=== PATIENT | female | born 1940 | race Caucasian/White ===

== ENCOUNTER 2019-07-20 09:33 | Outpatient (CLI) | payer MEDICARE, SELFPAY ==
--- NOTE | ~2019-07-20 | MM_ITS ---
EXAMINATION: MM screening raheem BI w dulce HISTORY: Screening mammogram, family history of breast cancer in her sister. TECHNIQUE: Craniocaudal and mediolateral oblique 3-D tomosynthesis images were obtained and synthetic 2-D images were generated. CAD analysis was submitted and interpreted. COMPARISON: 06/15/2018, 06/10/2017, 06/03/2016 BREAST PARENCHYMAL COMPOSITION: There are scattered areas of fibroglandular density. FINDINGS: There is no evidence of suspicious mass, calcification, or architectural distortion to sugg est malignancy in either breast. There has been no suspicious interval change. IMPRESSION: 1. No mammographic evidence of malignancy. 2. Recommend routine screening mammography in one year. BI-RADS Category 1: Negative Reviewed, dictated and finalized at location A. LER HAND
--- NOTE | ~2019-07-20 | DEXA_ITS ---
Bone Density Report Name: Dena Aldana Age: 79 Sex: Female Ethnicity: White Date of : 1940 Indication: postmenopausal; inflammatory bowel disease; hysterectomy; Referring Provider: CLAYTON ELIZONDO Study: Bone densitometry was performed. Exam Date: July 20, 2019 Accession number: [id number] Bone Density: Region BMD T-score Z-score Classification AP Spine (L1, L2, L3) 1.089 0.6 3.1 Normal Femoral Neck (Left) 0.806 -0.4 1.8 Normal Total Hip (Left) 1.026 0.7 2.6 Normal Total Hip Bilateral Avg 0.974 0.2 2.1 Normal Femoral Neck (Right) 0.727 -1.1 1.1 Osteopenia Total Hip (Right) 0.922 -0.2 1.7 Normal World Health Organization criteria for BMD impression classify patients as: Normal (T-score at or above -1.0), Osteopenia (T-score between -1.0 and -2.5), or Osteoporosis (T-score at or below -2.5). 10-year Fracture Risk(1): Major Osteoporotic Fracture 10% Hip Fracture 1.8% Reported Risk Factors: [place] (), Neck BMD=0.727, BMI=34.9 (1) FRAX(R) Version 3.08. Fracture probability calculated for an untreated patient. Fracture probability may be lower if the patient has received treatment. Previous Exams: Region Exam Age BMD T-score BMD Change BMD Change Date g/cm2 vs Baseline vs Previous AP Spine(L1, L2, L3) 07/20/2019 79 1.089 0.6 0.019(1.8%)# -0.044(-3.9%)* 06/03/2016 76 1.133 1.0 0.063(5.9%)# 0.063(5.9%)# 10/10/2007 67 1.070 0.5 Total Hip(Left) 07/20/2019 79 1.026 0.7 0.043(4.4%)# 0.020(2.0%) 06/03/2016 76 1.006 0.5 0.023(2.4%)# 0.023(2.4%)# 10/10/2007 67 0.983 0.3 Total Hip(Right) 07/20/2019 79 0.922 -0.2 0.025(2.8%)# 0.027(3.0%) 06/03/2016 76 0.895 -0.4 -0.002(-0.2%)# -0.002(-0.2%)# 10/10/2007 67 0.897 -0.4 *Denotes significance at 95% confidence level, LSC for AP Spine = 0.022 g/cm2, LSC for Total Hip = 0.027 g/cm2 Clinical Information Provided by Patient: Has used the following medications: Vitamin D Has the following medical conditions: Inflammatory bowel diseases, Hysterectomy Patient maximum height was 65.5 Menopause Age: 42 No regular weight bearing exercise Does not regularly consume dairy products Onset of menses at age 16 Number of children 2 Impression: The patient has low bone mass, based on the Right Femoral Neck T-score. The patient has an estimated ten-year risk of hip fracture of 1.8% and an estimated ten-year risk of
== END 2019-07-20 09:34 | disposition home or self-care (01) ==
PROVIDERS: PCP Internal Medicine; Visit Provider Internal Medicine
DX: Z12.31 Encounter for screening mammogram for malignant neoplasm of breast (principal); Z78.0 Asymptomatic menopausal state
CPT/HCPCS: 77063; 77067; 77080

== ENCOUNTER 2019-08-29 06:58 | Outpatient (CLI) | payer MEDICARE, SELFPAY ==
[2019-08-29 07:20] LABS: Basophils Percent Auto 0.5 % (0.2-1.2); Eosinophils Absolute Auto 0.1 K/mm3 (0-0.3); Eosinophils Percent Auto 1.7 % (0-4.4); Hematocrit 45.7 % (37.0-47.0); Immature Granulocyte Absolute 0.02 K/mm3 (0.00-0.031); Immature Granulocyte Percent A 0.3 % (0-0.5); Lymphocytes Absolute Auto 2.07 K/mm3 (0.9-3.2); Lymphocytes Percent Auto 35.4 % (18.3-44.2); Mean Corpuscular HGB Conc 32.8 g/dl (32-36); Mean Corpuscular Hemoglobin 29.2 pg (26-34); Mean Corpuscular Volume 89.1 fl (80-100); Mean Platelet Volume 10.4 fl (7.4-10.4); Monocytes Absolute Auto 0.6 K/mm3 (0.1-0.6); Monocytes Percent Auto 9.7 % (2.6-8.5); Neutrophils Absolute Auto 3.1 K/mm3 (1.3-6.7); Neutrophils Percent Auto 52.4 % (45.5-73.1); Platelet Count Result 222 k/mm3 (150-375); Red Blood Count 5.13 M/mm3 (4.2-5.4); Red Cell Distribution Width 13.2 % (11.5-14.5); White Blood Count 5.9 K/mm3 (4.5-10.0)
[2019-08-29 07:28] LABS: Hemoglobin A1C 5.9 % (<5.7)
[2019-08-29 07:32] LABS: Alanine Aminotransferase 26 U/L (4-35); Albumin Level 4.4 g/dL (3.5-5.1); Alkaline Phosphatase 54 U/L (38-126); Aspartate Amino Transferase 31 U/L (14-36); Bilirubin,Total 0.6 mg/dL (0.2-1.3); Blood Urea Nitrogen 15 mg/dL (7-17); Calcium 9.4 mg/dL (8.4-10.2); Carbon Dioxide 30 mmol/L (22-30); Chloride 104 mmol/L (98-107); Estimated Glomerular Filt Rate > 60; Glucose 115 mg/dL (65-105); Potassium 4.1 mmol/L (3.4-5.0); Sodium 138 mmol/L (137-145)
[2019-08-29 07:48] LABS: Creatinine Urine 171.7 mg/dL
[2019-08-29 07:53] LABS: MALB Creatinine Ratio 5.6 mg/g (0-30); Microalbumin Urine Random 9.7 mg/L (0-16.7)
[2019-08-29 08:03] LABS: Vitamin D 25 Hydroxy 34.1 ng/mL
== END 2019-08-29 06:59 | disposition home or self-care (01) ==
PROVIDERS: PCP Internal Medicine; Visit Provider Internal Medicine
DX: R73.01 Impaired fasting glucose (principal); I10 Essential (primary) hypertension; E55.9 Vitamin D deficiency, unspecified
CPT/HCPCS: 36415; 80053; 82043; 82306; 83036; 85025

== ENCOUNTER 2020-02-05 07:16 | Outpatient (CLI) | payer MEDICARE, SELFPAY ==
[2020-02-05 08:07] LABS: Alanine Aminotransferase 27 U/L (4-35); Albumin Level 4.2 g/dL (3.5-5.1); Alkaline Phosphatase 51 U/L (38-126); Anion Gap 6 mmol/L (8-16); Aspartate Amino Transferase 31 U/L (14-36); Bilirubin,Total 0.6 mg/dL (0.2-1.3); Blood Urea Nitrogen 15 mg/dL (7-17); Carbon Dioxide 28 mmol/L (22-30); Chloride 105 mmol/L (98-107); Cholesterol 154 mg/dL (0-200); Estimated Glomerular Filt Rate > 60; Glucose 110 mg/dL (65-105); HDL Direct 54 mg/dL; Sodium 139 mmol/L (137-145); Triglycerides 166 mg/dL (<150)
[2020-02-05 08:18] LABS: LDL Cholesterol Direct 61 mg/dL
[2020-02-05 08:46] LABS: Hemoglobin A1C 5.8 % (<5.7)
[2020-02-05 09:10] LABS: Creatinine Urine 118.3 mg/dL
[2020-02-05 09:16] LABS: MALB Creatinine Ratio < 5.1 mg/g (0-30); Microalbumin Urine Random < 6.0 mg/L (0-16.7)
== END 2020-02-05 07:17 | disposition home or self-care (01) ==
PROVIDERS: PCP Internal Medicine; Visit Provider Internal Medicine
DX: E11.9 Type 2 diabetes mellitus without complications (principal); I10 Essential (primary) hypertension
CPT/HCPCS: 36415; 80053; 80061; 82043; 83036

== ENCOUNTER 2020-04-30 12:23 | Outpatient (CLI) | payer MEDICARE, SELFPAY ==
[2020-04-30 13:16] LABS: Hemoglobin A1C 5.6 % (<5.7)
[2020-04-30 13:43] LABS: Creatinine Urine 124.5 mg/dL
[2020-04-30 13:48] LABS: MALB Creatinine Ratio 5.6 mg/g (0-30)
== END 2020-04-30 12:24 | disposition home or self-care (01) ==
LOC: ANHLAB 12:25
PROVIDERS: PCP Internal Medicine; Visit Provider Internal Medicine
DX: E11.9 Type 2 diabetes mellitus without complications (principal)
CPT/HCPCS: 36415; 82043; 83036

== ENCOUNTER 2020-07-25 09:57 | Outpatient (CLI) | payer MEDICARE, SELFPAY ==
--- NOTE | ~2020-07-25 | MM_ITS ---
EXAMINATION: MM screening raheem BI w dulce HISTORY: Screening mammogram TECHNIQUE: Craniocaudal and mediolateral oblique 3-D tomosynthesis images were obtained and synthetic 2-D images were generated. CAD analysis was submitted and interpreted. COMPARISON: , 1525 2018, 06/02/2017 bilateral digital screening mammogram examinations BREAST PARENCHYMAL COMPOSITION: There are scattered areas of fibroglandular density. FINDINGS: 6 mm and smaller nodular densities are suggested in the left breast (MLO Tomosynthesis imag e ). Diagnostic left mammogram and left breast ultrasound examination are recommended. Otherwise there is no evidence of suspicious mass, calcification, or architectural distortion to sugg est malignancy in either breast. There has been no other suspicious interval change. IMPRESSION: 1. Left breast masses are suggested 2. Diagnostic left mammogram and left breast ultrasound examination are recommended. BI-RADS Category 0: Incomplete: Needs additional imaging evaluation. Reviewed, dictated and finalized at location A. T IMPRESSION: 1. Left breast masses are suggested 2. Diagnostic left mammogram and left breast ultrasound examination are recomme nded. BI-RADS Category 0: Incomplete: Needs additional imaging evaluation.
== END 2020-07-25 09:58 | disposition home or self-care (01) ==
LOC: ANHIMG 10:00
PROVIDERS: PCP Internal Medicine; Visit Provider Internal Medicine
DX: Z12.31 Encounter for screening mammogram for malignant neoplasm of breast (principal); R92.8 Other abnormal and inconclusive findings on diagnostic imaging of breast
CPT/HCPCS: 77063; 77067

== ENCOUNTER 2020-07-31 14:00 | Outpatient (CLI) | payer MEDICARE, SELFPAY ==
[2020-07-31 14:38] LABS: Hemoglobin A1C 5.6 % (<5.7)
[2020-07-31 14:39] LABS: Alanine Aminotransferase 29 U/L (4-35); Albumin Level 4.3 g/dL (3.5-5.1); Alkaline Phosphatase 53 U/L (38-126); Anion Gap 5 mmol/L (8-16); Aspartate Amino Transferase 36 U/L (14-36); Bilirubin,Total 0.5 mg/dL (0.2-1.3); Blood Urea Nitrogen 17 mg/dL (7-17); Calcium 9.5 mg/dL (8.4-10.2); Carbon Dioxide 31 mmol/L (22-30); Chloride 104 mmol/L (98-107); Estimated Glomerular Filt Rate > 60; Glucose 106 mg/dL (65-105); Potassium 4.3 mmol/L (3.4-5.0); Sodium 140 mmol/L (137-145)
[2020-07-31 14:57] LABS: Creatinine Urine 207.6 mg/dL
[2020-07-31 14:59] LABS: Microalbumin Urine Random 10.3 mg/L (0-16.7)
== END 2020-07-31 14:01 | disposition home or self-care (01) ==
PROVIDERS: PCP Internal Medicine; Visit Provider Internal Medicine
DX: E11.9 Type 2 diabetes mellitus without complications (principal); I10 Essential (primary) hypertension
CPT/HCPCS: 36415; 80053; 82043; 83036; 84443

== ENCOUNTER 2020-08-13 12:12 | Outpatient (CLI) | payer MEDICARE, SELFPAY ==
[2020-08-13 12:47] LABS: Add Urine Microscopic? YES; Appearance Urine Clear (Clear); Bilirubin Urine Negative (Negative); Blood Urine 1+ (Negative); Color Urine Straw (Yellow); Glucose Urine UA Negative (Negative); Ketones Urine Negative (Negative); Leukocyte Esterase Ur 2+ LEU/UL (Negative); Nitrate Urine Negative (Negative); Protein Urine Negative (Negative); RBC Urine 0-2 /hpf (0-2); Specific Grav Ur 1.008 (1.001-1.035); Urobilinogen Urine Negative mg/dL (<2.0); WBC Urine 21-30 /hpf
== END 2020-08-13 12:13 | disposition home or self-care (01) ==
PROVIDERS: PCP Internal Medicine; Visit Provider Internal Medicine
DX: N39.0 Urinary tract infection, site not specified (principal)
CPT/HCPCS: 81001; 87077; 87086; 87088; 87186

== ENCOUNTER 2020-08-20 12:20 | Outpatient (CLI) | payer MEDICARE, SELFPAY ==
--- NOTE | ~2020-08-20 | MMUS_ITS ---
EXAMINATION: MM diagnostic mammo unilat LT, US breast LT complete HISTORY: 6 mm and smaller nodular densities suggested in the left breast on screening mammogram of [facility] 2020 TECHNIQUE: Additional 3-D tomosynthesis images of the left breast were performed and synthetic 2-D im ages were generated. CAD analysis was submitted and interpreted. High resolution complete left breast ultrasound was performed. COMPARISON: July 25, 2020 bilateral digital screening mammogram FINDINGS: MAMMOGRAPHIC FINDINGS: Approximately 6-7 mm circumscribed mass is suggested posteriorly in the mid left breast (MLO spot Casa osynthesis image 42/85; MLO Tomosynthesis image 39/84). ULTRASOUND: Left breast 4:00: There is a small cluster of cysts measuring up to approximately 6 mm overall dimens ion. No suspicious mass or shadowing of the left breast is detected otherwise. IMPRESSION: 1. No mammographic evidence of malignancy 2. Routine annual mammographic screening is recommended. BI-RADS Category 2: Benign finding(s). Reviewed, dictated and finalized at location A. L GLUE DRIER IMPRESSION: 1. No mammographic evidence of malignancy 2. Routine annual mammographic screening is recommended. BI-RADS Category 2: Benign finding(s).
== END 2020-08-20 12:21 | disposition home or self-care (01) ==
PROVIDERS: PCP Internal Medicine; Visit Provider Internal Medicine
DX: R92.8 Other abnormal and inconclusive findings on diagnostic imaging of breast (principal)
CPT/HCPCS: 76641; 77065

== ENCOUNTER 2021-01-23 07:26 | Outpatient (CLI) | payer MEDICARE, SELFPAY ==
[2021-01-23 08:40] LABS: Basophils Percent Auto 0.5 % (0.2-1.2); Eosinophils Absolute Auto 0.1 K/mm3 (0-0.3); Eosinophils Percent Auto 1.6 % (0-4.4); Hematocrit 44.4 % (37.0-47.0); Hemoglobin 14.7 g/dL (12.0-15.0); Immature Granulocyte Absolute 0.03 K/mm3 (0.00-0.031); Immature Granulocyte Percent A 0.5 % (0-0.5); Lymphocytes Absolute Auto 1.96 K/mm3 (0.9-3.2); Lymphocytes Percent Auto 34.4 % (18.3-44.2); Mean Corpuscular HGB Conc 33.1 g/dl (32-36); Mean Corpuscular Hemoglobin 29.3 pg (26-34); Mean Corpuscular Volume 88.4 fl (80-100); Mean Platelet Volume 10.5 fl (7.4-10.4); Monocytes Absolute Auto 0.5 K/mm3 (0.1-0.6); Monocytes Percent Auto 8.3 % (2.6-8.5); Neutrophils Absolute Auto 3.1 K/mm3 (1.3-6.7); Neutrophils Percent Auto 54.7 % (45.5-73.1); Platelet Count Result 209 k/mm3 (150-375); Red Blood Count 5.02 M/mm3 (4.2-5.4); Red Cell Distribution Width 13.2 % (11.5-14.5); White Blood Count 5.7 K/mm3 (4.5-10.0)
[2021-01-23 08:41] LABS: Alanine Aminotransferase 26 U/L (4-35); Albumin Level 4.3 g/dL (3.5-5.1); Alkaline Phosphatase 59 U/L (38-126); Anion Gap 8 mmol/L (8-16); Aspartate Amino Transferase 33 U/L (14-36); Bilirubin,Total 0.9 mg/dL (0.2-1.3); Blood Urea Nitrogen 12 mg/dL (7-17); Calcium 9.3 mg/dL (8.4-10.2); Carbon Dioxide 28 mmol/L (22-30); Chloride 100 mmol/L (98-107); Cholesterol 164 mg/dL (0-200); Estimated Glomerular Filt Rate > 60; Glucose 114 mg/dL (65-110); HDL Direct 55 mg/dL; Potassium 3.7 mmol/L (3.4-5.0); Sodium 136 mmol/L (137-145); Triglycerides 226 mg/dL (<150)
[2021-01-23 08:51] LABS: LDL Cholesterol Direct 54 mg/dL
[2021-01-23 09:17] LABS: Vitamin D 25 Hydroxy 45.1 ng/mL
== END 2021-01-23 07:27 | disposition home or self-care (01) ==
LOC: ANHLAB 07:30
PROVIDERS: PCP Internal Medicine; Visit Provider Internal Medicine
DX: E55.9 Vitamin D deficiency, unspecified (principal); I48.92 Unspecified atrial flutter; I10 Essential (primary) hypertension; E78.2 Mixed hyperlipidemia
CPT/HCPCS: 36415; 80053; 80061; 82306; 85025

== ENCOUNTER 2021-02-27 11:02 | Outpatient (CLI) | payer MEDICARE, SELFPAY | END 2021-02-27 11:03 | disposition home or self-care (01) | LOC: ANHAUDIO 11:03 | PROVIDERS: PCP Internal Medicine; Visit Provider Internal Medicine | DX: H91.93 Unspecified hearing loss, bilateral (principal) | CPT/HCPCS: 99199 ==

== ENCOUNTER 2021-03-21 09:52 | Outpatient (CLI) | payer MEDICARE, SELFPAY | END 2021-03-21 09:53 | disposition home or self-care (01) | LOC: ANHAUDIO 09:53 | PROVIDERS: PCP Internal Medicine; Visit Provider Internal Medicine | DX: H90.3 Sensorineural hearing loss, bilateral (principal) | CPT/HCPCS: 92557; 92567 ==

== ENCOUNTER 2021-05-05 07:18 | Outpatient (CLI) | payer MEDICARE, SELFPAY ==
[2021-05-05 09:11] LABS: Cholesterol 149 mg/dL (0-200); HDL Direct 61 mg/dL; Triglycerides 186 mg/dL (<150)
[2021-05-05 09:22] LABS: LDL Cholesterol Direct 52 mg/dL
[2021-05-05 09:23] LABS: Creatinine Urine 208.9 mg/dL
[2021-05-05 09:28] LABS: MALB Creatinine Ratio 19.8 mg/g (0-30); Microalbumin Urine Random 41.4 mg/L (0-16.7)
[2021-05-05 10:04] LABS: Hemoglobin A1C 5.7 % (<5.7)
== END 2021-05-05 07:19 | disposition home or self-care (01) ==
PROVIDERS: PCP Internal Medicine; Visit Provider Internal Medicine
DX: E11.9 Type 2 diabetes mellitus without complications (principal); E78.2 Mixed hyperlipidemia
CPT/HCPCS: 36415; 80061; 82043; 83036

== ENCOUNTER 2021-08-20 09:04 | Outpatient (CLI) | payer MEDICARE, SELFPAY ==
[2021-08-20 09:44] LABS: Alanine Aminotransferase 23 U/L (4-35); Albumin Level 4.3 g/dL (3.5-5.1); Alkaline Phosphatase 53 U/L (38-126); Anion Gap 6 mmol/L (8-16); Aspartate Amino Transferase 35 U/L (14-36); Bilirubin,Total 0.8 mg/dL (0.2-1.3); Blood Urea Nitrogen 11 mg/dL (7-17); Carbon Dioxide 29 mmol/L (22-30); Chloride 104 mmol/L (98-107); Estimated Glomerular Filt Rate > 60; Glucose 123 mg/dL (65-110); Potassium 4.1 mmol/L (3.4-5.0); Sodium 139 mmol/L (137-145)
[2021-08-20 09:57] LABS: Hemoglobin A1C 5.6 % (<5.7)
[2021-08-20 10:40] LABS: Microalbumin Urine Random < 6.0 mg/L (0-16.7)
== END 2021-08-20 09:05 | disposition home or self-care (01) ==
LOC: ANHLAB 09:06
PROVIDERS: PCP Internal Medicine; Visit Provider Internal Medicine
DX: E11.9 Type 2 diabetes mellitus without complications (principal); I10 Essential (primary) hypertension
CPT/HCPCS: 36415; 80053; 82043; 83036; 84443

== ENCOUNTER 2021-09-02 08:59 | Outpatient (CLI) | payer MEDICARE, SELFPAY ==
--- NOTE | ~2021-09-02 | MM_ITS ---
EXAMINATION: MM screening [facility] BI w dulce HISTORY: Screening mammogram TECHNIQUE: Craniocaudal and mediolateral oblique 3-D tomosynthesis images were obtained and synthetic 2-D images were generated. CAD analysis was submitted and interpreted. COMPARISON: No prior mammogram is available for comparison at this institution. BREAST PARENCHYMAL COMPOSITION: There are scattered areas of fibroglandular density. FINDINGS: Right breast: There is no evidence of suspicious mass, calcification, or architectural distortion to suggest malignancy in the right breast. There has been no suspicious interval change. Left breast: There are 3 circumscribed masses measuring up to approximately 4.5 mm in the mid to lowe r outer left breast (MLO Tomosynthesis image 28/84). Diagnostic left mammogram and left breast ultras ound examination are recommended. IMPRESSION: 1. Several small left breast masses 2. Diagnostic left mammogram and left breast ultrasound examination are recommended BI-RADS Category 0: Incomplete: Needs additional imaging evaluation. Reviewed, dictated and finalized at location A. IMPRESSION: 1. Several small left breast masses 2. Diagnostic left mammogram and left breast ultrasound examination are recomme nded BI-RADS Category 0: Incomplete: Needs additional imaging evaluation.
== END 2021-09-02 09:00 | disposition home or self-care (01) ==
LOC: ANHIMG 09:01
PROVIDERS: PCP Internal Medicine; Visit Provider Internal Medicine
DX: Z12.31 Encounter for screening mammogram for malignant neoplasm of breast (principal); R92.8 Other abnormal and inconclusive findings on diagnostic imaging of breast
CPT/HCPCS: 77063; 77067

== ENCOUNTER 2021-09-12 12:05 | Outpatient (CLI) | payer MEDICARE, SELFPAY ==
--- NOTE | ~2021-09-12 | MMUS_ITS ---
EXAMINATION: MM diagnostic raheem LT w dulce, US breast LT limited HISTORY: Possible left breast masses on screening mammogram TECHNIQUE: Additional 3-D tomosynthesis images of the left breast were performed and synthetic 2-D im ages were generated. CAD analysis was submitted and interpreted. High resolution limited left breast ultrasound was performed. COMPARISON: 09/02/2021, 08/30/2020, 07/25/2020 FINDINGS: MAMMOGRAPHIC FINDINGS: There is a 4 mm equal density obscured mass in the middle third of the lower breast at the 5:00 locat ion 4.5 cm from the nipple. There is a 5 mm obscured equal density mass at the 2:00 location 4 cm fro m the nipple. ULTRASOUND: There is no evidence of focal abnormal solid or cystic mass in the vicinity of the mammographic findi ngs in question. IMPRESSION: 1. Probably benign left breast masses. 2. Recommend 6 month follow-up left diagnostic mammogram and possible ultrasound. BI-RADS category 3, probably benign findings. Reviewed, dictated and finalized at location A. IMPRESSION: 1. Probably benign left breast masses. 2. Recommend 6 month follow-up left diagnostic mammogram and possible ultrasoun d. BI-RADS category 3, probably benign findings.
== END 2021-09-12 12:06 | disposition home or self-care (01) ==
LOC: ANHIMG 12:05
PROVIDERS: PCP Internal Medicine; Visit Provider Internal Medicine
DX: R92.8 Other abnormal and inconclusive findings on diagnostic imaging of breast (principal)
CPT/HCPCS: 76642; 77061; 77065; G0279

== ENCOUNTER 2021-09-16 11:03 | Outpatient (CLI) | payer MEDICARE, SELFPAY ==
--- NOTE | 2021-09-22 19:46 | WPDSLEEPSTUD ---
Sleep Study Date of Study: 09/16/21 Ordering Provider: Tom Case MD Interpreting Physician: Dena Hyman DO Sleep Study Type: Polysomnogram Height: 1.68 m Weight: 99.337 kg Body Mass Index: 35.3 Neck Circumference (inches): 16 [place]: 2 Reason for Sleep Study The patient had an elevated RVSP on echocardiogram. Needs evaluation for JEET Sleep History The patient is a 81-year-old female with atrial flutter, seasonal allergies, GERD, irritable bowel syndrome, hypertension and hyperlipidemia that had a sleep study ordered by her primary care physician. The patient denies having any sleep complaints. The patient denies awakening from sleep short of breath. She denies awakening at night with heartburn, belching or cough. She occasionally snores but never loud enough that others complaints. She occasionally has trouble sleeping when she has a cold. She denies waking up gasping for air throughout the night. She denies having breathing problems at night observed by herself at others. She denies sweating excessively at night. She rarely falls asleep during the day and never while driving. She denies sleep paralysis, cataplexy and hypnagogic / hypnopompic hallucinations. She denies having nightmares. She rarely remembers her dreams. She denies having thoughts racing through her mind. She denies feeling sad or depressed. She occasionally has anxiety. She denies having muscular tension. She denies noticing far to her body jerks. She denies kicking during the night. She denies having crawling and aching feelings in her legs as well as leg pain during the night. She denies grinding her teeth during sleep and awakening with morning job pain. She denies being bothered by pain during the day and being awakened by pain during the night. She occasionally wakes up feeling stiff in the morning with sore or achy muscles. She occasionally wakes up with pain in the neck, spine and other joints. The patient goes to bed at 10:30 p.m. on both weekdays and weekends. It takes her at least an hour or more to fall asleep. She wakes up twice throughout the night to use the restroom. She is able to fall back asleep immediately. She wakes up at 7:00 a.m. on both weekdays and weekends. She typically gets 6-8 hours of sleep per night. She will not stay in bed after waking up in the morning. She is currently living with her . She does not consume any caffeinated beverages within 2 hours of bedtime. She does not engage in physical exercise before bedtime. She will watch television before falling asleep. She does not take naps in the afternoon or the evening. She drinks 1-2 cups of caffeinated beverage per day. She will have 1 alcoholic beverage per month. She denies tobacco and recreational drug use. [facility] Past Medical History Medical History Benign essential hypertension Gastroesophageal reflux disease without esophagitis Irritable bowel syndrome with diarrhea Mixed hyperlipidemia Paroxysmal atrial flutter Family History Family History Sibling Family history of malignant neoplasm of breast in first degree relative Family history of heart disease in male family member before age 55 Mother Family history of heart disease in male family member before age 55 Other Cerebrovascular accident Diabetes mellitus Family history of arthritis Family history of atrial fibrillation Family history of cardiovascular disease Family history of chronic obstructive pulmonary disease Family history of congestive heart failure Family history of malignant neoplasm of male breast Hypertension Social History Social History Second hand tobacco smoke exposure: Yes Alcohol intake: current Alcohol use details: 1 drink a month Substance use: never Substance use typ
[2021-09-23 14:02] VITALS: BMI 35.3
== END 2021-09-17 07:09 | disposition home or self-care (01) ==
LOC: ANHCSM 11:04
PROVIDERS: PCP Internal Medicine; Visit Provider Internal Medicine
DX: G47.10 Hypersomnia, unspecified (principal); I48.92 Unspecified atrial flutter; G47.33 Obstructive sleep apnea (adult) (pediatric)
CPT/HCPCS: 95810

== ENCOUNTER 2021-10-10 18:25 | Emergency (ER) | payer MEDICARE, SELFPAY ==
--- NOTE | ~2021-10-10 | XR_ITS ---
EXAMINATION: XR chest 2V DATE: 10/10/2021 18:58 INDICATION: Wheezing, cough, fever and shortness of breath TECHNIQUE: PA and lateral views of the chest were obtained. COMPARISON: Chest radiograph and CT dated 01/14/2018 FINDINGS: The lungs remain clear with no focal airspace opacities, pulmonary edema, pleural effusion or pneumot horax. The cardiomediastinal silhouette is normal. Mild to moderate thoracic spondylosis. Cholecystec karla clips in right upper quadrant. IMPRESSION: 1. No acute cardiopulmonary disease. Reviewed, dictated and finalized at location A.
[2021-10-10 18:38] VITALS: BP 155/83; PULSE 104; RESP 18; TEMP 37.2; O2SAT 95
--- NOTE | 2021-10-10 18:48 | ED.URI ---
HPI - URI/Sore Throat General Chief Complaint: Upper Respiratory Infection Stated Complaint: congestion,cough,fever Source: patient Mode of arrival: ambulatory Limitations: no limitations History of Present Illness HPI Narrative: 81-year-old female presents to [facility] with complaints of fevers up to 101, nonproductive cough, intermittent shortness of breath, intermittent wheezing for the past 6 days. Patient reports that fever started 3 days ago. Patient has been taking [id number] Robitussin-DM Tylenol with minimal relief. Patient denies sick contacts. Patient denies recent travel. Patient reports that she did have a negative home COVID test. MD elicited complaint: fever, cough, rhinorrhea and nasal congestion Able to tolerate fluids by mouth: Yes Treatments prior to arrival: acetaminophen and cold medicine Related Data Home Medications Medication Instructions Recorded Confirmed coenzyme Q10 400 mg capsule 400 mg PO DAILY 06/19/19 08/19/21 metoprolol tartrate 50 mg tablet 50 mg PO Q12H 06/19/19 10/10/21 rivaroxaban 20 mg tablet 20 mg PO QPM 06/19/19 10/10/21 cholecalciferol (vitamin D3) 50 50 mcg PO DAILY 02/11/21 08/19/21 mcg (2,000 unit) tablet Allergies Allergy/AdvReac Type Severity Reaction Status Date / Time dexlansoprazole Allergy Mild Rash Verified 10/10/21 18:45 esomeprazole Allergy Mild Unknown Verified 10/10/21 18:45 Review of Systems Constitutional: Constitutional: Denies chills, Reports fever(s) and Denies weakness ENT: Denies dizziness, Reports nasal congestion and Denies sore throat Respiratory: Respiratory: Denies chest congestion, Reports cough, Reports dyspnea and Reports wheezing Gastrointestinal: Gastrointestinal: Denies abdominal pain, Denies diarrhea, Denies nausea and Denies vomiting Integumentary/Breasts: Skin/Breast: Denies rash PMFSH Past Medical History Medical History Benign essential hypertension Gastroesophageal reflux disease without esophagitis Irritable bowel syndrome with diarrhea Mixed hyperlipidemia Paroxysmal atrial flutter Family History Family History Sibling Family history of malignant neoplasm of breast in first degree relative Family history of heart disease in male family member before age 55 Mother Family history of heart disease in male family member before age 55 Other Cerebrovascular accident Diabetes mellitus Family history of arthritis Family history of atrial fibrillation Family history of cardiovascular disease Family history of chronic obstructive pulmonary disease Family history of congestive heart failure Family history of malignant neoplasm of male breast Hypertension Social History Social History Second hand tobacco smoke exposure: Yes Alcohol intake: current Alcohol use details: 1 drink a month Substance use: never Substance use type: does not use Comments At time of signature, I agree with nursing past medical, surgical, social and family history. There is no relevant family history pertinent to the presenting complaint. Exam Const: General: no acute distress Nutritional Appearance: well nourished Orientation/consciousness: patient oriented x3 HENMT: Ears: external ears normal and TM's normal bilaterally General nose exam: Nasal discharge present clear bilateral Face and sinus: normal facial exam Mouth: Yes moist mucous membranes Throat: posterior oropharynx normal and uvula midline Neck: Neck: normal visual inspection Resp: Effort & Inspection: normal respiratory effort and not tachypneic Auscultation: clear to auscultation bilaterally Cardio: Rate: regular rate, not bradycardic and not tachycardic Rhythm: regular rhythm Heart sounds: no murmurs Skin: General skin exam: normal color Rashes: no rashes Wounds: no wounds Neuro:
== END 2021-10-10 19:11 | disposition home or self-care (01) ==
PROVIDERS: Emergency Provider Nurse Practitioner Family; PCP Internal Medicine
DX: J20.9 Acute bronchitis, unspecified (principal); I10 Essential (primary) hypertension; E78.2 Mixed hyperlipidemia
CPT/HCPCS: 71046; 87426; 87804; 99213; C9803; G0463

== ENCOUNTER 2022-02-03 07:20 | Outpatient (CLI) | payer MEDICARE, SELFPAY ==
[2022-02-03 07:52] LABS: Appearance Urine Clear (Clear); Bilirubin Urine Negative (Negative); Blood Urine Trace-lysed (Negative); Color Urine Yellow (Yellow); Glucose Urine UA Negative (Negative); Ketones Urine Negative (Negative); Leukocyte Esterase Ur 2+ LEU/UL (NEGATIVE); Nitrate Urine Negative (Negative); Protein Urine Negative (Negative); Urobilinogen Urine 0.2 mg/dL (<2.0); pH Urine 5.5 (5.0-9.0)
[2022-02-03 08:01] LABS: Mucus Urine Rare /lpf; Squamous Epithelial Cell Urine Occasional /hpf (Few); Transitional Epi Cells Urine Rare /hpf (None Seen); WBC Urine 31-50 /hpf (0-3)
[2022-02-03 08:15] LABS: Add Urine Microscopic? YES
[2022-02-03 08:19] LABS: Alanine Aminotransferase 28 U/L (6-35); Albumin Level 4.5 g/dL (3.5-5.1); Alkaline Phosphatase 58 U/L (38-126); Anion Gap 9 mmol/L (8-16); Aspartate Amino Transferase 35 U/L (14-36); Bilirubin,Total 0.7 mg/dL (0.2-1.3); Blood Urea Nitrogen 8 mg/dL (7-17); Calcium 9.1 mg/dL (8.4-10.2); Carbon Dioxide 27 mmol/L (22-30); Chloride 103 mmol/L (98-107); Cholesterol 145 mg/dL (0-200); Estimated Glomerular Filt Rate > 60; Glucose 123 mg/dL (65-110); HDL Direct 53 mg/dL; Potassium 4.1 mmol/L (3.4-5.0); Sodium 139 mmol/L (137-145); Triglycerides 194 mg/dL (<150)
[2022-02-03 08:25] LABS: LDL Cholesterol Direct 38 mg/dL
[2022-02-03 10:25] LABS: Hemoglobin A1C 5.8 % (<5.7)
== END 2022-02-03 07:21 | disposition home or self-care (01) ==
LOC: ANHLAB 07:23
PROVIDERS: PCP Nurse Practitioner Family; Visit Provider Nurse Practitioner Family
DX: E78.2 Mixed hyperlipidemia (principal); E11.9 Type 2 diabetes mellitus without complications; I10 Essential (primary) hypertension; E55.9 Vitamin D deficiency, unspecified
CPT/HCPCS: 36415; 80048; 80061; 80076; 81001; 82306; 83036; 87086

== ENCOUNTER 2022-04-09 20:50 | Emergency (ER) | payer MEDICARE, SELFPAY ==
--- NOTE | ~2022-04-09 | XR_ITS ---
XR chest 1V portable DATE: 04/09/2022 22:24 INDICATION: Chest pain, fluttering. Tachycardia. History of hypertension. TECHNIQUE: Portable upright AP chest on 04/09/2022 at 2220 hours COMPARISON: 10/10/2021 PA and lateral chest FINDINGS: Normal heart size. Aortic arch calcification, mild aortic unfolding. No pulmonary infiltrat e or consolidation, pleural effusion or pulmonary vascular congestion or pneumothorax. Degenerative s purring of the thoracic spine IMPRESSION: No active cardiopulmonary disease Reviewed, dictated and finalized at location A.
--- NOTE | 2022-04-09 20:56 | ECG_ITS ---
Measurements Intervals [place] Rate: 81 P: 68 TN: 204 QRS: 0 QRSD: 87 T: 14 QT: 358 QTc: 417 Interpretive Statements SINUS RHYTHM LOW QRS VOLTAGE IN PRECORDIAL LEADS NONSPECIFIC ST ABNORMALITY BORDERLINE ECG NO PREVIOUS ECG AVAILABLE FOR COMPARISON Electronically Signed On 04-10-2022 16:36:58 CDT by Junior Hassan M.D.
[2022-04-09 21:03] VITALS: BP 146/84; PULSE 83; RESP 16; TEMP 36.6; O2SAT 97
[2022-04-09 21:11] VITALS: PULSE 80
--- NOTE | 2022-04-09 21:47 | ED.ARRPALP ---
HPI - Arrhythmia/Palpitations General Source: RN notes reviewed History of Present Illness HPI narrative: Patient presents emergency room from home for rapid heart rate. Patient states that starting approximately 430 she began to feel like her heart was racing since that time she took her pulse and was between 140 and 160. Patient states she has a history of paroxysmal atrial fibrillation and is followed by Dr. Hassan. States that for like she was in A. fib. States that during this episode she felt like she had some mild shortness of breath as well as some mild chest tightness that resolved once her heart rate returned back to normal. By the time the patient arrived to the ER her heart rate was back into sinus rhythm. She states that at this time she has no chest pain or shortness of breath. She states she is on metoprolol 50 mg twice a day and took her evening dose around 7 she also was on Xarelto which she has been taking Related Data Home Medications Medication Instructions Recorded Confirmed coenzyme Q10 400 mg capsule (Co 400 mg PO DAILY 06/19/19 04/07/22 Q-10) metoprolol tartrate 50 mg tablet 50 mg PO Q12H 06/19/19 04/07/22 rivaroxaban 20 mg tablet (Xarelto) 20 mg PO QPM 06/19/19 04/07/22 cholecalciferol (vitamin D3) 50 50 mcg PO DAILY 02/11/21 04/07/22 mcg (2,000 unit) tablet pantoprazole 40 mg tablet,delayed 40 mg PO QAM 01/29/22 04/07/22 release Allergies Allergy/AdvReac Type Severity Reaction Status Date / Time No Known Allergies Allergy Verified 04/07/22 13:42 Review of Systems Review of Systems: Gen.: Denies fevers or chills Eyes: Denies eye pain or visual change ENT: Denies congestion Resp reports shortness of breath with heart racing CV: See HPI GI: Denies abdominal pain nausea, emesis or diarrhea Musculoskeletal: Denies back pain or muscle pain Neuro: Denies numbness, tingling, weakness or focal weakness Skin: Denies rash Except as documented, all other systems reviewed and negative [facility] Past Medical History Medical History Abnormal urine Benign essential hypertension Encounter to establish care Gastroesophageal reflux disease without esophagitis Irritable bowel syndrome with diarrhea Mixed hyperlipidemia Paroxysmal atrial flutter Surgical History Surgical History (Updated 01/29/22 @ 13:07 by Gosia Davis MA) History of cholecystectomy Family History Family History (Updated 01/29/22 @ 13:07 by Gosia Davis MA) Sibling Family history of malignant neoplasm of breast in first degree relative Family history of heart disease in male family member before age 55 Mother Family history of heart disease in male family member before age 55 Grandparent Cancer Other Cerebrovascular accident Diabetes mellitus Family history of arthritis Family history of atrial fibrillation Family history of cardiovascular disease Family history of chronic obstructive pulmonary disease Family history of congestive heart failure Family history of malignant neoplasm of male breast Hypertension Social History Social History Smoking status: Never smoker Second hand tobacco smoke exposure: No Alcohol intake: never Alcohol use details: rarely Substance use: never Substance use type: does not use Spiritual care concerns: No Exam Narrative: APPEARANCE: No acute distress, nontoxic, resting in bed EYES: EOMI HEENT: Normocephalic, atraumatic, OMM RESPIRATORY: No respiratory distress Clear to auscultation bilaterally with no rhonchi wheezing or rales. CARDIOVASCULAR: Regular rate and rhythm without murmurs rubs or gallops. ABDOMINAL: Soft, nontender, nondistended, no rebound or guarding MUSCULOSKELETAl: Moves all extremities. No clubbing, cyanosis or edema. NEURO: Awake and alert. Following commands, speech normal, no focal deficits SKIN:: Warm, dry. No r
[2022-04-09 21:55] VITALS: PULSE 72
[2022-04-09] MEDS: METOPROLOL TARTRATE 25 MG TABLET PO (21:55)
[2022-04-09 21:56] VITALS: BP 120/62; PULSE 73; RESP 16; O2SAT 100
[2022-04-09 21:58] LABS: Basophils Percent Auto 0.4 % (0.2-1.2); Eosinophils Absolute Auto 0.1 K/mm3 (0-0.3); Eosinophils Percent Auto 1.4 % (0-4.4); Hematocrit 46.7 % (37.0-47.0); Hemoglobin 15.7 g/dL (12.0-15.0); Immature Granulocyte Absolute 0.03 K/mm3 (0.00-0.031); Immature Granulocyte Percent A 0.3 % (0-0.5); Lymphocytes Absolute Auto 2.61 K/mm3 (0.9-3.2); Mean Corpuscular HGB Conc 33.6 g/dl (32-36); Mean Corpuscular Volume 89.3 fl (80-100); Monocytes Percent Auto 9.5 % (2.6-8.5); Neutrophils Absolute Auto 6.3 K/mm3 (1.3-6.7); Neutrophils Percent Auto 62.4 % (45.5-73.1); Platelet Count Result 252 k/mm3 (150-375); Red Blood Count 5.23 M/mm3 (4.2-5.4); Red Cell Distribution Width 13.2 % (11.5-14.5); White Blood Count 10.1 K/mm3 (4.5-10.0)
[2022-04-09 22:07] LABS: INR 2.4; Prothrombin Time 25.5 Seconds (11.1-14.7)
[2022-04-09 22:08] LABS: Partial Thromboplastin Time 46.8 SECONDS (22.3-36.8)
[2022-04-09 22:10] LABS: Alanine Aminotransferase 30 U/L (6-35); Albumin Level 4.6 g/dL (3.5-5.1); Alkaline Phosphatase 63 U/L (38-126); Anion Gap 10 mmol/L (8-16); Aspartate Amino Transferase 36 U/L (14-36); Bilirubin,Total 0.8 mg/dL (0.2-1.3); Blood Urea Nitrogen 14 mg/dL (7-17); Calcium 9.3 mg/dL (8.4-10.2); Carbon Dioxide 28 mmol/L (22-30); Chloride 104 mmol/L (98-107); Estimated CRCL calculation 56 ml/min; Estimated Glomerular Filt Rate > 60; Glucose 129 mg/dL (65-110); Lipase 76 U/L (23-300); Potassium 4.1 mmol/L (3.4-5.0); Sodium 142 mmol/L (137-145)
[2022-04-09 22:21] LABS: Troponin I 0.028 ng/mL (0.000-0.034)
[2022-04-09 22:52] VITALS: BP 122/87; PULSE 69; RESP 16; O2SAT 99
== END 2022-04-09 22:52 | disposition home or self-care (01) ==
PROVIDERS: Emergency Provider Emergency Medicine; PCP Nurse Practitioner Family
DX: I48.0 Paroxysmal atrial fibrillation (principal); I10 Essential (primary) hypertension; E78.2 Mixed hyperlipidemia; K21.9 Gastro-esophageal reflux disease without esophagitis; Z79.01 Long term (current) use of anticoagulants; K58.0 Irritable bowel syndrome with diarrhea; R94.31 Abnormal electrocardiogram [ECG] [EKG]
CPT/HCPCS: 36415; 71045; 80053; 83690; 84484; 85025; 85610; 85730; 93005; 99284; A9270

== ENCOUNTER 2022-04-15 08:48 | Day surgery (SDC) | payer MEDICARE, SELFPAY ==
[2022-04-07 13:54] VITALS: BMI 35.2
[2022-04-15 09:05] VITALS: BP 139/103; PULSE 59; RESP 20; TEMP 36.6; O2SAT 99
[2022-04-15] MEDS: TETRACAINE HCL 0.5% OPHTH SOLN 4 ML BTL 1 DROP AFFCTD EYE ×3 (09:19→09:29)
[2022-04-15] MEDS: OFLOXACIN 0.3% OPHTH SOLN 5 ML BTL 1 DROP AFFCTD EYE ×2 (09:19→11:15)
--- NOTE | 2022-04-15 09:23 | WPDANESEPPF ---
Anes - Initial Pre Proc Eval Procedure: Operation Date: 04/15/22 10:30 Proposed Procedures p Cataract Extraction with Lens Implant-Right Eye - Cesar Sanford MD Date/Time: 04/15/22 09:23 Surgeon: Cesar Sanford MD Pre Op Diagnosis: Cataract Right Eye Patient Data Age: 82 Gender: F Height: 1.65 m Weight: 97.4 kg Last Vital Signs Temp 36.6 C 04/15/22 09:05 Pulse 59 L 04/15/22 09:05 Resp 20 04/15/22 09:05 BP 139/103 H 04/15/22 09:05 Pulse Ox 99 04/15/22 09:05 O2 Del Method Room Air 04/15/22 09:05 Allergies Allergy/AdvReac Type Severity Reaction Status Date / Time No Known Allergies Allergy Verified 04/15/22 09:17 Home Medications Medication Instructions Recorded Confirmed Type coenzyme Q10 400 mg capsule (Co 400 mg PO DAILY 06/19/19 04/15/22 History Q-10) rivaroxaban 20 mg tablet (Xarelto) 20 mg PO QPM 06/19/19 04/15/22 History dicyclomine 20 mg tablet See Rx Instructions .Route 09/06/20 04/15/22 Rx .COMPLEX #180 tabs cholecalciferol (vitamin D3) 50 50 mcg PO DAILY 02/11/21 04/15/22 History mcg (2,000 unit) tablet hydrocortisone 2.5 % topical cream 1 applic RECTAL DAILY PRN 10/30/21 04/15/22 Rx with perineal applicator hemorrhoids #30 grams (Anusol-HC) losartan 50 mg tablet 50 mg PO DAILY #90 tabs 11/13/21 04/15/22 Rx simvastatin 40 mg tablet See Rx Instructions .Route 11/13/21 04/15/22 Rx .COMPLEX #90 tabs ezetimibe 10 mg tablet (Zetia) 10 mg PO DAILY #90 tabs 04/08/22 04/15/22 Rx metoprolol tartrate 75 mg tablet 75 mg PO Q12H 04/14/22 04/15/22 History Patient hx anesthesia problems: post op nausea/vomiting Family hx anesthesia problems: post op nausea/vomiting Results Review: All pre-operative results and documents have been reviewed as part of the pre-operative evaluation. [facility] Past Medical History Medical History Abnormal urine Atrial fibrillation Benign essential hypertension Encounter to establish care Gastroesophageal reflux disease without esophagitis Irritable bowel syndrome with diarrhea Mixed hyperlipidemia Paroxysmal atrial flutter Surgical History Surgical History History of cholecystectomy Family History Family History Sibling Family history of malignant neoplasm of breast in first degree relative Family history of heart disease in male family member before age 55 Mother Family history of heart disease in male family member before age 55 Grandparent Cancer Other Cerebrovascular accident Diabetes mellitus Family history of arthritis Family history of atrial fibrillation Family history of cardiovascular disease Family history of chronic obstructive pulmonary disease Family history of congestive heart failure Family history of malignant neoplasm of male breast Hypertension Social History Social History Smoking status: Never smoker Second hand tobacco smoke exposure: No Alcohol intake: never Alcohol use details: rarely Substance use: never Substance use type: does not use Has the Lack of Transportation Kept You From Medical Appointments or From Getting Medications?: No Within the Past 12 Months, Were You Worried Whether Your Food Would Run Out Before You Got Money to Buy More?: Never True What is Your Housing Situation Today?: I Have Housing Are You Worried That in the Next 2 Months, You May Not Have Your Own Housing to Live In?: No Do You Have Trouble Paying Your Heating Or Electricity Bill?: No Do You Have Trouble Paying For Medicines?: No Are You Currently Unemployed and Looking for Work?: No Highest Level of Education Completed: High School Diploma/GED Do You Have Trouble With Childcare or the Care of a Family Member?: No Living arrangements: with [facility]
[2022-04-15] MEDS: LIDOCAINE HCL 2% JELLY 5 ML TUBE 1 APPLIC AFFCTD EYE (10:46)
[2022-04-15] MEDS: LIDOCAINE HCL 1% PF INJ 5 ML VIAL 1 ML INTRAOCULA (10:52)
[2022-04-15] MEDS: NEOMYCIN/POLYMYXIN/DEXAMETH OP OINT 3.5 GM TUBE 1 APPLIC AFFCTD EYE (11:15)
[2022-04-15] MEDS: prednisoLONE ACETATE 1% OPHTH 5 ML 1 DROP AFFCTD EYE (11:15)
[2022-04-15] MEDS: HOME MEDICATION 1 EACH AFFCTD EYE (11:15)
[2022-04-15] MEDS: BRIMONIDINE TARTRATE 0.2% OP SOLN 5 ML BTL 1 DROP AFFCTD EYE (11:15)
[2022-04-15 11:18] VITALS: BP 123/79; PULSE 59; RESP 16; O2SAT 96
[2022-04-15] MEDS: acetaZOLAMIDE TAB 250 MG TABLET PO (11:30)
--- NOTE | 2022-04-15 11:43 | WPDANESPN ---
Anes - Prog Note Post-Op Date/Time: 04/15/22 11:43 Cardiovascular status: normal Respiratory status: normal Airway patency: baseline Mental status: baseline Post-Op hydration status: normal Vital Signs: Last Vital Signs Temp 36.6 C 04/15/22 09:05 Pulse 59 L 04/15/22 09:05 Resp 20 04/15/22 09:05 BP 139/103 H 04/15/22 09:05 Pulse Ox 99 04/15/22 09:05 O2 Del Method Room Air 04/15/22 09:05 Pain Score (VAS): 0 Patient Feedback: Patient satisfied with anesthetic care.
--- NOTE | 2022-04-15 12:24 | W.PM.PROC2 ---
Procedure Note - Detailed Date of Procedure 04/15/22 Pre-op Diagnosis Cataract Right Eye Post-op Diagnosis Same Procedure Performed Cataract Extraction (by Phacoemulsification) and lntraocular Lens Implant Surgeon Cesar Sanford MD Description of Procedure The eye was anesthetized with topical 0.75% bupivacaine. After intravenous sedation and placement of monitors, the patient was prepped and draped in the usual sterile manner. A lid speculum was placed. A paracentesis was made, and preservative free 1% lidocaine was instilled in the anterior chamber. The anterior chamber was then filled with Viscoat viscoelastic. A cezar keratome was used to create the wound. Continuous tear anterior capsulotomy was performed. The lens was hydro dissected before being removed with phacoemulsification. The remaining lenticular cortex was removed with aspiration. The capsular bag was polished and filled with viscoelastic material. An intraocular lens was chosen, inspected, irrigated and placed within the capsular bag where it was seen to be centered and stable. The viscoelastic material was aspirated. The wound was closed and found to be watertight. Ciloxan drops were placed in the eye. The speculum was removed. A Tucker shield was applied. The patient tolerated the procedure well and left the operating room in satisfactory condition. Implants See chart Complications None Condition Stable Disposition Same day
--- NOTE | 2022-04-15 12:24 | WPDHPUPDATE1 ---
History and Physical Update Update Date/Time: 04/15/22 12:24 History and Physical has been reviewed, including an updated exam of the patient. There are NO changes in the patient's condition. Risks, benefits, and alternatives have been discussed and questions answered. Patient agrees to proceed with procedure.
== END 2022-04-15 11:47 | disposition home or self-care (01) ==
PROVIDERS: PCP Nurse Practitioner Family; Visit Provider Student in an Organized Health Care Education/Training Program
PROC: (CPT 66983; principal; 2022-04-15 10:30)
DX: H25.11 Age-related nuclear cataract, right eye (principal)
CPT/HCPCS: 66984

== ENCOUNTER 2022-07-29 06:57 | Emergency (ER) | payer MEDICARE, SELFPAY ==
[2022-07-29] VITALS (10 sets, daily range): BP systolic 144–151; BP diastolic 78–88; PULSE 52–76; RESP 16–20; TEMP 36.8–37.1; O2SAT 96–99
--- NOTE | ~2022-07-29 | CT_ITS ---
EXAMINATION: CT abdomen pelvis wo con DATE: 07/29/2022 08:15 INDICATION: Right flank pain TECHNIQUE: Computed tomography (CT) of the abdomen and pelvis was performed without intravenous contr ast. The dose-length product was 994.85 mGy-cm. Automated exposure control and iterative reconstructi on technique were employed. COMPARISON: CT dated 10/02/2018. FINDINGS: There is dependent atelectasis. Heart size normal. No significant pleural or pericardial ef fusion. There is a small hiatal hernia. There are cholecystectomy clips. The liver, spleen, pancreas, adrenal glands and kidneys are unremarkable. Colonic diverticulosis without evidence for diverticuli tis. Nonobstructive bowel pattern. No renal/ureteral stones. No significant hydronephrosis. Bladder i s unremarkable. No abnormal pelvic masses or fluid collections. There are multiple pelvic phleboliths . There is a duodenal diverticulum. No free air or free fluid. Moderate lumbar spondylosis. No focal lytic or blastic lesions. IMPRESSION: 1. No acute abdominal abnormality. Reviewed, dictated and finalized at location A. NE WELDER
[2022-07-29 07:53] LABS: Appearance Urine Slightly Cloudy (Clear); Bilirubin Urine Negative (Negative); Blood Urine Trace-lysed (Negative); Color Urine Yellow (Yellow); Glucose Urine UA Negative (Negative); Ketones Urine Negative (Negative); Leukocyte Esterase Ur 2+ LEU/UL (Negative); Nitrate Urine Negative (Negative); Protein Urine Negative (Negative); Specific Grav Ur 1.015 (1.001-1.035); Urobilinogen Urine 0.2 mg/dL (<2.0); pH Urine 5.5 (5.0-9.0)
--- NOTE | 2022-07-29 08:00 | ED.GENADULT ---
HPI - General Adult General Chief complaint: Urogenital-Female Stated complaint: flank pain Time Seen by Provider: 07/29/22 07:13 History of Present Illness HPI narrative: 82-year-old female presenting to the emergency department for evaluation of right flank pain that radiates around to her right lower abdomen that has been ongoing for approximately 1 week. Patient states over the course of the last week she has had the intermittent right flank pain. Patient denies any falls or injuries. Patient denies any pain with urination but does have a history of hematuria. Patient denies any prior history of kidney stones. Patient does have a prior history of cholecystectomy. Patient does have history of paroxysmal atrial fibrillation and is on Xarelto. Related Data Home Medications Medication Instructions Recorded Confirmed coenzyme Q10 400 mg capsule (Co 400 mg PO DAILY 06/19/19 04/15/22 Q-10) rivaroxaban 20 mg tablet (Xarelto) 20 mg PO QPM 06/19/19 04/15/22 cholecalciferol (vitamin D3) 50 50 mcg PO DAILY 02/11/21 04/15/22 mcg (2,000 unit) tablet metoprolol tartrate 75 mg tablet 75 mg PO Q12H 04/14/22 04/15/22 Allergies Allergy/AdvReac Type Severity Reaction Status Date / Time No Known Allergies Allergy Verified 04/15/22 09:17 Review of Systems Review of Systems: CONSTITUTIONAL: Denies fever, chills, or sweats. EYES: Denies visual changes, redness, or discharge. ENT: Denies rhinorrhea, congestion, sore throat, or otalgia. CARDIOVASCULAR: Denies chest pain, palpitations, or edema. RESPIRATORY: Denies cough or dyspnea. GASTROINTESTINAL: Nausea with right flank pain, see HPI GENITOURINARY: Denies dysuria or hematuria. SKIN: Denies rash or itching. MUSCULOSKELETAL: Denies back pain, joint pain, or myalgia. NEUROLOGIC: Denies headache, numbness, or weakness. FORMERLY [facility] Past Medical History Medical History Abnormal urine Atrial fibrillation Benign essential hypertension Encounter to establish care Gastroesophageal reflux disease without esophagitis Irritable bowel syndrome with diarrhea Mixed hyperlipidemia Paroxysmal atrial flutter Surgical History Surgical History History of cholecystectomy Family History Family History Sibling Family history of malignant neoplasm of breast in first degree relative Family history of heart disease in male family member before age 55 Mother Family history of heart disease in male family member before age 55 Grandparent Cancer Other Cerebrovascular accident Diabetes mellitus Family history of arthritis Family history of atrial fibrillation Family history of cardiovascular disease Family history of chronic obstructive pulmonary disease Family history of congestive heart failure Family history of malignant neoplasm of male breast Hypertension Social History Social History Smoking status: Never smoker Second hand tobacco smoke exposure: No Alcohol intake: never Alcohol use details: rarely Substance use: never Substance use type: does not use Lack of Transportation: No Lack of Food: Never True Current Housing: I Have Housing Concerned About Future Housing: No Difficulty Paying Gas/Electric Bills: No Difficulty Paying for Meds: No Currently Unemployed: No Education: High School Diploma/GED Difficulty w/ Childcare or Family Care: No Living arrangements: with family Spiritual care concerns: No Exam Narrative: APPEARANCE: Well appearing, no pain, no distress, well-nourished. HEAD: normocephalic, atraumatic. EYES: PERRLA/EOMI, conjunctivae clear. NOSE: Normal no drainage NECK: Supple. No adenopathy, no masses. RESPIRATORY: Airway patent, respirations nonlabored. Clear to auscultation bilaterally, no ral
[2022-07-29 08:02] LABS: Basophils Percent Auto 0.4 % (0.2-1.2); Eosinophils Absolute Auto 0.1 K/mm3 (0-0.3); Eosinophils Percent Auto 1.5 % (0-4.4); Hematocrit 43.6 % (37.0-47.0); Hemoglobin 14.7 g/dL (12.0-15.0); Lymphocytes Percent Auto 30.4 % (18.3-44.2); Mean Corpuscular HGB Conc 33.7 g/dl (32-36); Mean Corpuscular Hemoglobin 30.4 pg (26-34); Mean Corpuscular Volume 90.3 fl (80-100); Monocytes Absolute Auto 0.4 K/mm3 (0.1-0.6); Monocytes Percent Auto 8.2 % (2.6-8.5); Neutrophils Absolute Auto 3.1 K/mm3 (1.3-6.7); Neutrophils Percent Auto 59.5 % (45.5-73.1); Platelet Count Result 206 k/mm3 (150-375); Red Blood Count 4.83 M/mm3 (4.2-5.4); Red Cell Distribution Width 13.2 % (11.5-14.5); White Blood Count 5.3 K/mm3 (4.5-10.0)
[2022-07-29] MEDS: ONDANSETRON INJ 4 MG/2 ML VIAL IV PUSH (08:06)
[2022-07-29 08:10] LABS: Alanine Aminotransferase 28 U/L (6-35); Albumin Level 4.4 g/dL (3.5-5.1); Alkaline Phosphatase 56 U/L (38-126); Anion Gap 5 mmol/L (8-16); Aspartate Amino Transferase 32 U/L (14-36); Bilirubin,Total 0.7 mg/dL (0.2-1.3); Blood Urea Nitrogen 12 mg/dL (7-17); Calcium 8.9 mg/dL (8.4-10.2); Carbon Dioxide 28 mmol/L (22-30); Chloride 104 mmol/L (98-107); Estimated CRCL calculation 73 ml/min; Estimated Glomerular Filt Rate > 60; Glucose 127 mg/dL (65-110); Potassium 4.3 mmol/L (3.4-5.0); Sodium 137 mmol/L (137-145)
[2022-07-29 08:48] LABS: Add Urine Microscopic? YES; Bacteria Urine Trace /hpf; Mucus Urine Rare /lpf; Squamous Epithelial Cell Urine Few /hpf (Few); WBC Urine 21-30 /hpf
[2022-07-29] MEDS: PHENAZOPYRIDINE HCL 100 MG TABLET 200 MG PO (10:28)
== END 2022-07-29 10:37 | disposition home or self-care (01) ==
PROVIDERS: Emergency Provider Emergency Medicine; PCP Nurse Practitioner Family
DX: N39.0 Urinary tract infection, site not specified (principal); R10.9 Unspecified abdominal pain; I48.91 Unspecified atrial fibrillation; I10 Essential (primary) hypertension; K21.9 Gastro-esophageal reflux disease without esophagitis; E78.5 Hyperlipidemia, unspecified
CPT/HCPCS: 36415; 74176; 80053; 81001; 85025; 87086; 96365; 96375; 99284; A9270; J0696; J2405

== ENCOUNTER 2022-11-02 09:27 | Outpatient (CLI) | payer MEDICARE, SELFPAY ==
--- NOTE | ~2022-11-02 | MM_ITS ---
EXAMINATION: MM screening raheem BI w dulce HISTORY: Screening mammogram, family history of breast cancer in her sister. TECHNIQUE: Craniocaudal and mediolateral oblique 3-D tomosynthesis images were obtained and synthetic 2-D images were generated. CAD analysis was submitted and interpreted. COMPARISON: 09/12/2021, 09/02/2021, 08/30/2020, 07/25/2020 BREAST PARENCHYMAL COMPOSITION: There are scattered areas of fibroglandular density. FINDINGS: No suspicious mass, calcification, or architectural distortion are identified in either rosas ast to suggest malignancy. There has been no suspicious interval change. IMPRESSION: 1. No mammographic evidence of malignancy. 2. Recommend routine screening mammography while the patient remains in good health. BI-RADS Category 1: Negative Reviewed, dictated and finalized at location A. IMPRESSION: 1. No mammographic evidence of malignancy. 2. Recommend routine screening mammography while the patient remains in good he alth. BI-RADS Category 1: Negative
== END 2022-11-02 09:28 | disposition home or self-care (01) ==
LOC: ANHIMG 09:30
PROVIDERS: PCP Family Medicine; Visit Provider Family Medicine
DX: Z12.31 Encounter for screening mammogram for malignant neoplasm of breast (principal)
CPT/HCPCS: 77063; 77067

== ENCOUNTER 2023-01-29 09:41 | Outpatient (CLI) | payer MEDICARE, SELFPAY ==
[2023-01-29 12:00] LABS: Hematocrit 46.1 % (37.0-47.0); Hemoglobin 15.2 g/dL (12.0-15.0); Mean Corpuscular Hemoglobin 29.7 pg (26-34); Mean Platelet Volume 10.4 fl (7.4-10.4); Platelet Count Result 221 k/mm3 (150-375); Red Blood Count 5.12 M/mm3 (4.2-5.4); White Blood Count 6.3 K/mm3 (4.5-10.0)
[2023-01-29 12:08] LABS: Hemoglobin A1C 5.8 % (<5.7)
[2023-01-29 12:15] LABS: Alanine Aminotransferase 30 U/L (6-35); Albumin Level 4.6 g/dL (3.5-5.1); Alkaline Phosphatase 50 U/L (38-126); Anion Gap 5 mmol/L (8-16); Aspartate Amino Transferase 35 U/L (14-36); Bilirubin,Total 1.2 mg/dL (0.2-1.3); Blood Urea Nitrogen 14 mg/dL (7-17); Calcium 9.4 mg/dL (8.4-10.2); Carbon Dioxide 32 mmol/L (22-30); Chloride 103 mmol/L (98-107); Cholesterol 146 mg/dL (0-200); Estimated Glomerular Filt Rate > 60; Glucose 112 mg/dL (65-110); HDL Direct 50 mg/dL; Sodium 140 mmol/L (137-145); Triglycerides 196 mg/dL (<150)
[2023-01-29 12:26] LABS: LDL Cholesterol Direct 55 mg/dL
[2023-01-29 12:58] LABS: Microalbumin Urine Random 51.9 mg/L (0-16.7)
[2023-01-29 13:00] LABS: Creatinine Urine 150.3 mg/dL; MALB Creatinine Ratio 34.5 mg/g (0-30)
[2023-01-29 13:10] LABS: Vitamin D 25 Hydroxy 30.9 ng/mL
== END 2023-01-29 09:42 | disposition home or self-care (01) ==
PROVIDERS: PCP Family Medicine; Visit Provider Family Medicine
DX: E11.9 Type 2 diabetes mellitus without complications (principal); E55.9 Vitamin D deficiency, unspecified; E78.2 Mixed hyperlipidemia; Z13.220 Encounter for screening for lipoid disorders; I10 Essential (primary) hypertension
CPT/HCPCS: 36415; 80048; 80061; 80076; 82043; 82306; 83036; 84443; 85027

== ENCOUNTER 2023-02-23 18:12 | Emergency (ER) | payer MEDICARE, SELFPAY ==
--- NOTE | 2023-02-23 18:21 | ED.ABDPAIN ---
HPI - Abdominal Pain General Chief Complaint: Abdominal Pain Stated Complaint: stomach pain Time Seen by Provider: 02/23/23 18:30 Source: patient and RN notes reviewed Mode of arrival: ambulatory Limitations: no limitations History of Present Illness HPI narrative: 83 y/o female with hx IBS, diverticulitis, and afib presented for c/o mid abdominal pain intermittently for 4 days. Pain is frequent, sharp and stabbing, brief, and resolves on its own. Rates pain 8/10 when it occurs, current pain is 2/10. Endorses Pain causes nausea. Reports 4 small BMs today, normal appetite; last ate yogurt at noon. Has been taking pantoprazole for symptoms. Takes dicyclomine prn for cramping associated with IBS, however she states this pain is different. Only change in diet is decreasing carbs and reports weight loss 10lbs 2 weeks. Denies dizziness, cp, palpitations, radiating pain, vomiting, diarrhea, hematochezia, decreased appetite, fever or chills. Hx sigmoid resection, cholecystectomy. Follows with Dr Guy. Related Data Home Medications Medication Instructions Recorded Confirmed coenzyme Q10 400 mg capsule (Co 400 mg PO DAILY 06/19/19 02/23/23 Q-10) rivaroxaban 20 mg tablet (Xarelto) 20 mg PO QPM 06/19/19 02/23/23 cholecalciferol (vitamin D3) 50 50 mcg PO DAILY 02/11/21 02/23/23 mcg (2,000 unit) tablet Saccharomyces boulardii 250 mg 5,000 mmu cells PO DAILY 08/06/22 02/23/23 capsule (Digest Probiotic (S.boulardii)) losartan 25 mg tablet 25 mg PO DAILY 08/06/22 02/23/23 metoprolol tartrate 75 mg tablet 75 mg PO Q12H 08/06/22 02/23/23 Allergies Allergy/AdvReac Type Severity Reaction Status Date / Time No Known Allergies Allergy Verified 02/23/23 18:19 Review of Systems Review of Systems: CONSTITUTIONAL: Denies body aches, fever, chills ENT: Denies rhinorrhea, congestion CARDIOVASCULAR: Denies chest pain, palpitations, or edema. RESPIRATORY: Denies cough or dyspnea. GASTROINTESTINAL: Endorses mid abdominal pain Denies nausea, vomiting, diarrhea, hematochezia, melena GENITOURINARY: Denies dysuria, hematuria, or CVA tenderness. SKIN: Denies rash, itching, or wounds. MUSCULOSKELETAL: Denies back pain, joint pain, or myalgia. NEUROLOGIC: Denies headache, numbness, tingling, or weakness. All systems reviewed & are unremarkable except as noted in HPI and below [facility] Past Medical History Medical History (Updated 02/23/23 @ 19:01 by Aleisha Chowdhury APRN) Abnormal urine Adult BMI 35.0-35.9 kg/sq m Atrial fibrillation Benign essential hypertension Encounter to establish care Gastroesophageal reflux disease without esophagitis Irritable bowel syndrome with diarrhea Mixed hyperlipidemia Paroxysmal atrial flutter Sigmoid diverticulitis Surgical History Surgical History History of cholecystectomy Family History Family History Sibling Family history of malignant neoplasm of breast in first degree relative Family history of heart disease in male family member before age 55 Breast cancer Mother Family history of heart disease in male family member before age 55 Diabetes mellitus Pacemaker Grandparent Cancer Father Arthritis A-fib Sibling Diabetes mellitus Other Cerebrovascular accident Family history of arthritis Family history of atrial fibrillation Family history of cardiovascular disease Family history of chronic obstructive pulmonary disease Family history of congestive heart failure Family history of malignant neoplasm of male breast Hypertension Social History Social History Smoking status: Never smoker Second hand tobacco smoke exposure: No Alcohol intake: current Alcohol use details: rarely Substance use: never Substance use type: does not use Lack of Transportation: No L
[2023-02-23 18:26] VITALS: BP 141/48; PULSE 70; RESP 16; TEMP 36.5; O2SAT 99
== END 2023-02-23 18:53 | disposition short-term general hospital (02) ==
PROVIDERS: Emergency Provider Nurse Practitioner Family; PCP Family Medicine
DX: R10.9 Unspecified abdominal pain (principal); I48.91 Unspecified atrial fibrillation; I10 Essential (primary) hypertension; E78.2 Mixed hyperlipidemia
CPT/HCPCS: 99212; G0463

== ENCOUNTER 2023-02-23 19:13 | Emergency (ER) | payer MEDICARE, SELFPAY ==
--- NOTE | ~2023-02-23 | CT_ITS ---
CT of the Abdomen and Pelvis: Indication: Abdominal pain Technique: 2.5 mm axial scans were obtained through the abdomen and pelvis following intravenous adm inistration of 100 cc of Omnipaque 350. Dose reduction technique was used on this scan by utilizing a utomated exposure control and iterative reconstruction technique. The dose-length product (DLP) was 1 069.19 mGy-cm. COMPARISON: 07/29/2022 Findings: Scans through the lung bases are unremarkable. Small hiatal hernia noted Mild central intrahepatic biliary prominence is probably related to prior cholecystectomy. The spleen , pancreas, adrenals and kidneys are within normal limits. There are atherosclerotic calcifications o f the aorta. No lymphadenopathy. No bowel obstruction or bowel wall thickening. Duodenal diverticulum noted. Sigmoid diverticulosis no kamaljit. There is no evidence to suggest acute appendicitis. Images through the pelvis were performed. Urinary bladder unremarkable. No adnexal mass seen. No asci bailey. Impression: No acute abnormality evident. Small hiatal hernia. Duodenal diverticulum and sigmoid diverticulosis. Status post cholecystectomy. Reviewed, dictated and finalized at location . Impression: No acute abnormality evident. Small hiatal hernia. Duodenal diverticulum and sigmoid diverticulosis. Status post cholecystectomy.
[2023-02-23 19:14] VITALS: BP 134/77; PULSE 75; RESP 17; TEMP 36.8; O2SAT 99
[2023-02-23 22:45] VITALS: BP 127/63; PULSE 59; RESP 18; O2SAT 100
[2023-02-23 23:03] VITALS: BP 127/63; PULSE 67; RESP 18; O2SAT 97
[2023-02-23 23:07] LABS: Appearance Urine Cloudy (Clear); Bacteria Urine None Seen /hpf; Bilirubin Urine Negative (Negative); Blood Urine 1+ (Negative); Color Urine Yellow (Yellow); Glucose Urine UA Negative (Negative); Ketones Urine Negative (Negative); Leukocyte Esterase Ur 3+ LEU/UL (Negative); Nitrate Urine Negative (Negative); Protein Urine Negative (Negative); RBC Urine 0-2 /hpf (0-2); Specific Grav Ur 1.016 (1.001-1.035); Squamous Epithelial Cell Urine Occasional /hpf (Few); Urobilinogen Urine 0.2 mg/dL (<2.0); WBC Urine >100 /hpf
[2023-02-23 23:23] LABS: Basophils Percent Auto 0.4 % (0.2-1.2); Eosinophils Absolute Auto 0.1 K/mm3 (0-0.3); Eosinophils Percent Auto 0.9 % (0-4.4); Hematocrit 46.1 % (37.0-47.0); Hemoglobin 15.6 g/dL (12.0-15.0); Immature Granulocyte Absolute 0.02 K/mm3 (0.00-0.031); Immature Granulocyte Percent A 0.2 % (0-0.5); Lymphocytes Absolute Auto 2.67 K/mm3 (0.9-3.2); Lymphocytes Percent Auto 27.6 % (18.3-44.2); Mean Corpuscular HGB Conc 33.8 g/dl (32-36); Mean Corpuscular Hemoglobin 30.7 pg (26-34); Mean Corpuscular Volume 90.7 fl (80-100); Mean Platelet Volume 10.6 fl (7.4-10.4); Monocytes Absolute Auto 0.9 K/mm3 (0.1-0.6); Monocytes Percent Auto 9.6 % (2.6-8.5); Neutrophils Absolute Auto 5.9 K/mm3 (1.3-6.7); Neutrophils Percent Auto 61.3 % (45.5-73.1); Platelet Count Result 230 k/mm3 (150-375); Red Blood Count 5.08 M/mm3 (4.2-5.4); Red Cell Distribution Width 12.9 % (11.5-14.5); White Blood Count 9.7 K/mm3 (4.5-10.0)
[2023-02-23] MEDS: PANTOPRAZOLE SODIUM IV 40 MG VIAL IV PUSH (23:37)
[2023-02-23] MEDS: FAMOTIDINE 20 MG/2 ML VIAL IV PUSH (23:37)
[2023-02-23 23:40] LABS: Add Urine Microscopic? YES
[2023-02-23 23:41] LABS: Alanine Aminotransferase 29 U/L (6-35); Albumin Level 4.5 g/dL (3.5-5.1); Alkaline Phosphatase 45 U/L (38-126); Anion Gap 9 mmol/L (8-16); Aspartate Amino Transferase 43 U/L (14-36); Bilirubin,Total 0.9 mg/dL (0.2-1.3); Blood Urea Nitrogen 17 mg/dL (7-17); Calcium 9.5 mg/dL (8.4-10.2); Carbon Dioxide 26 mmol/L (22-30); Chloride 103 mmol/L (98-107); Estimated CRCL calculation 62 ml/min; Estimated Glomerular Filt Rate > 60; Glucose 106 mg/dL (65-110); Lipase 102 U/L (23-300); Potassium 4.7 mmol/L (3.4-5.0); Sodium 138 mmol/L (137-145)
[2023-02-24 00:21] VITALS: PULSE 62; RESP 12; O2SAT 98
[2023-02-24 00:54] VITALS: PULSE 58; RESP 14; O2SAT 100
[2023-02-24 01:26] VITALS: PULSE 56; RESP 12; O2SAT 100
[2023-02-24 01:30] VITALS: PULSE 61; RESP 13; O2SAT 100
[2023-02-24 01:32] VITALS: BP 157/78; PULSE 55; RESP 15; O2SAT 100
--- NOTE | 2023-02-24 01:38 | ED.GENADULT ---
HPI - General Adult General Chief complaint: Abdominal Pain Stated complaint: abd pain Time Seen by Provider: 02/23/23 23:16 History of Present Illness HPI narrative: Patient is a 83-year-old female who presents the emergency department with chief complaint of abdominal pain. Patient reports she been having pain in the epigastric regio patient reports the pain is not improved by anything and reports that she has had some nausea. The patient denies diarrhea denies blood in her stool patient and the patient denies fever Related Data Home Medications Medication Instructions Recorded Confirmed coenzyme Q10 400 mg capsule (Co 400 mg PO DAILY 06/19/19 02/23/23 Q-10) rivaroxaban 20 mg tablet (Xarelto) 20 mg PO QPM 06/19/19 02/23/23 cholecalciferol (vitamin D3) 50 50 mcg PO DAILY 02/11/21 02/23/23 mcg (2,000 unit) tablet Saccharomyces boulardii 250 mg 5,000 mmu cells PO DAILY 08/06/22 02/23/23 capsule (Digest Probiotic (S.boulardii)) losartan 25 mg tablet 25 mg PO DAILY 08/06/22 02/23/23 metoprolol tartrate 75 mg tablet 75 mg PO Q12H 08/06/22 02/23/23 Allergies Allergy/AdvReac Type Severity Reaction Status Date / Time No Known Allergies Allergy Verified 02/23/23 23:14 Review of Systems Review of Systems: A 10 system review of systems was completed on the patient and is negative except for what is stated in the HPI. Nursing and ancillary documentation was reviewed. [facility] Past Medical History Medical History Abnormal urine Adult BMI 35.0-35.9 kg/sq m Atrial fibrillation Benign essential hypertension Encounter to establish care Gastroesophageal reflux disease without esophagitis Irritable bowel syndrome with diarrhea Mixed hyperlipidemia Paroxysmal atrial flutter Sigmoid diverticulitis Surgical History Surgical History History of cholecystectomy Family History Family History Sibling Family history of malignant neoplasm of breast in first degree relative Family history of heart disease in male family member before age 55 Breast cancer Mother Family history of heart disease in male family member before age 55 Diabetes mellitus Pacemaker Grandparent Cancer Father Arthritis A-fib Sibling Diabetes mellitus Other Cerebrovascular accident Family history of arthritis Family history of atrial fibrillation Family history of cardiovascular disease Family history of chronic obstructive pulmonary disease Family history of congestive heart failure Family history of malignant neoplasm of male breast Hypertension Social History Social History Smoking status: Never smoker Second hand tobacco smoke exposure: No Alcohol intake: current Alcohol use details: rarely Substance use: never Substance use type: does not use Lack of Transportation: No Lack of Food: Never True Current Housing: I Have Housing Concerned About Future Housing: No Difficulty Paying Gas/Electric Bills: No Difficulty Paying for Meds: No Currently Unemployed: No Education: High School Diploma/GED Difficulty w/ Childcare or Family Care: No Living arrangements: with family Occupation/Education: retired Additional occupation/education comments: office work. Gender identity (if verbalized by the patient): Female Spiritual care concerns: No Exam Narrative: GENERAL: Well-appearing, well-nourished, and in no acute distress. HEAD: Normocephalic, atraumatic. EYES: PERRLA and EOMI. ENT: Nares clear, no rhinorrhea or epistaxis. Mucous membranes moist. NECK: Supple. CHEST: Clear to auscultation. No respiratory distress. HEART: Regular rate and rhythm. No murmur heard. Normal peripheral pulses. ABDOMEN
[2023-02-24 01:47] VITALS: PULSE 56; RESP 13; O2SAT 99
[2023-02-24] MEDS: AMOXICILLIN/CLAVULANATE K 875-125 MG TAB 1 TABLET PO (01:54)
== END 2023-02-24 02:05 | disposition home or self-care (01) ==
PROVIDERS: Emergency Provider Emergency Medicine; PCP Family Medicine
DX: I48.91 Unspecified atrial fibrillation (principal); I48.92 Unspecified atrial flutter; I10 Essential (primary) hypertension; E78.2 Mixed hyperlipidemia; K21.9 Gastro-esophageal reflux disease without esophagitis; K58.0 Irritable bowel syndrome with diarrhea; Z90.49 Acquired absence of other specified parts of digestive tract; Z79.01 Long term (current) use of anticoagulants
CPT/HCPCS: 36415; 74177; 80053; 81001; 83690; 85025; 87086; 96374; 96375; 99284; A9270; C9113; Q9967

== ENCOUNTER 2024-01-03 13:48 | Outpatient (CLI) | payer MEDICARE, SELFPAY ==
--- NOTE | ~2024-01-03 | MM_ITS ---
EXAMINATION: MM screening raheem BI w dulce HISTORY: Screening TECHNIQUE: Craniocaudal and mediolateral oblique 3-D tomosynthesis images were obtained and synthetic 2-D images were generated. CAD analysis was submitted and interpreted. COMPARISON: Comparison to multiple prior studies sequentially, with oldest reviewed study dated 11/2019. BREAST PARENCHYMAL COMPOSITION: Not dense: There are scattered areas of fibroglandular density. FINDINGS: There is no evidence of suspicious mass, calcification, or architectural distortion to sugg est malignancy in either breast. There has been no suspicious interval change. IMPRESSION: 1. No mammographic evidence of malignancy. 2. Recommend routine screening mammography in one year. BI-RADS Category 1: Negative Reviewed, dictated and finalized at location B.
== END 2024-01-03 13:49 | disposition home or self-care (01) ==
LOC: ANHIMG 13:49
PROVIDERS: PCP Family Medicine; Visit Provider Family Medicine
DX: Z12.31 Encounter for screening mammogram for malignant neoplasm of breast (principal)
CPT/HCPCS: 77063; 77067

== ENCOUNTER 2024-02-09 11:28 | Outpatient (CLI) | payer MEDICARE, SELFPAY ==
--- NOTE | 2024-03-03 09:48 | WPDSLEEPSTUD ---
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 The patient denies awakening from sleep short of breath. She occasionally awakens at night coughing. She denies snoring loud enough that others complain. She rarely has trouble sleeping she has a cold. He denies waking up gasping for air throughout night. She denies having breathing problems observed by herself or others. She denies sweating excessively at night. She occasionally has heart palpitations or irregular heartbeats during the night. She denies falling asleep during the day and while driving. She denies sleep paralysis, cataplexy and hypnagogic / hypnopompic hallucinations. She denies having trouble at school or work due to sleepiness. She denies feeling afraid of going to sleep. She denies having nightmares. She rarely remembers her dreams. She occasionally has thoughts racing through her mind. She denies feeling sad or depressed. She rarely has anxiety. She denies having muscular tension. She denies noticing parts of her body jerk. He denies kicking during the night. She denies having crawling and aching feelings in her legs and denies having leg pain during the night. She denies awakening with morning jaw pain. She is occasionally bothered by pain during the day but never awakened by pain during the night. She occasionally wakes up feeling stiff in the morning. She occasionally wakes up with sore or achy muscles. She occasionally wakes up with pain in the neck, spine and other joints. She goes to bed at 10:30 p.m. on both weekdays and weekends. It can take her 2-3 hours to fall asleep. She wakes up once throughout the night to urinate and is able to fall back asleep relatively quickly. She wakes up at 6:45 a.m. on both weekdays and weekends. She typically gets 8-9 hours of sleep per night. She does not stay in bed after waking up in the morning. She currently lives with her . She denies consuming any caffeinated beverages within 2 hours of bedtime. He denies engaging in physical exercise before bedtime. She denies reading before falling asleep. She will watch television before falling asleep. She denies taking naps in the afternoon or evening. She denies consuming caffeinated beverages throughout the day. She denies tobacco, alcohol and recreational drug use. FOR[facility]LY [facility] Past Medical History Medical History Abnormal urine Atrial fibrillation Benign essential hypertension BMI 35.0-35.9,adult Elevated glucose Encounter to establish care Gastroesophageal reflux disease without esophagitis Irritable bowel syndrome with diarrhea Mixed hyperlipidemia Paroxysmal atrial flutter Sigmoid diverticulitis Surgical History Surgical History History of cholecystectomy History of hysterectomy History of knee surgery Family History Family History Sibling Family history of malignant neoplasm of breast in first degree relative Family history of heart disease in male family member before age 55 Breast cancer Mother Family history of heart disease in male family member before age 55 Diabetes mellitus Pacemaker A-fib CHF (congestive heart failure) Grandparent Cancer Father Arthritis A-fib Sibling Diabetes mellitus A-fib Other Cerebrovascular accident Family history of arthritis Family history of atrial fib
[2024-03-03 09:49] VITALS: BMI 36.3
== END 2024-02-10 06:48 | disposition home or self-care (01) ==
PROVIDERS: PCP Family Medicine; Visit Provider Family Medicine
DX: G47.33 Obstructive sleep apnea (adult) (pediatric) (principal); I48.91 Unspecified atrial fibrillation; I10 Essential (primary) hypertension; K21.9 Gastro-esophageal reflux disease without esophagitis; E78.5 Hyperlipidemia, unspecified
CPT/HCPCS: 95811

== ENCOUNTER 2024-02-29 09:45 | Outpatient (RCR) | payer MEDICARE, SELFPAY ==
--- NOTE | 2024-01-26 16:29 | OPREHPOC ---
Outpatient Therapy Plan of Care This is a Multidisciplinary Plan of Care that may contain components documented by all disciplines (PT, OT, and ST.) PT Problem 1 PT Problem #1 Knowledge Deficit PT Goal 1 Goal *indep with HEP * correct back and LE position with exercises Target Visit 8 PT Problem 2 PT Problem #2 Pain PT Goal 1 Goal 1* pt report pain at worst of 3/10 2* Oswestry self assessment functional score of 28% limitation in activity level 3* with supine hamstring stretch on L no pain increase to 70' Target Visit 8 PT Problem 3 PT Problem #3 Impaired Strength PT Goal 1 Goal increase strength of trunk and hips, to improve stability of spine with mobility 1* supine mat exercises x 20 reps R and L 2* pt ambulate with step length pass other foot Target Visit 8 PT Problem 4 PT Problem #4 Impaired Functional Mobil PT Goal 1 Goal 1* 2 minute walking test distance of 360' 2* pt ambulate with good stability of hips and trunk/ no veering to R/L Target Visit 8
--- NOTE | 2024-01-26 16:29 | PTOPEVAL1 ---
Assessment and note entered by Ankita West, PT Evaluation Information Assessment Status Evaluation ICD-10 Condition Codes (PT) Pain in low back M54.50,Pain in right hip M25.551, Pain in left hip M25.552 Other ICD-10 Condition Codes ( R & L hip trochanteric bursitis PT) Onset Jul 2023 Subjective Information more problems with L knee pain, lifting and moving R leg; xray of hips mild OA; x rays of knees normal per pt report previous Xrays of back per pt--arthritis and DDD previous PT- 5 yrs ago- did not help much, exercises on back activity: do not use assistive device; indep with home and self care tasks; assists with home tasks; goal: less shooting back pain Reported Pain Level Pain Score Self Report Additional Pain Score Comments pain range in the past week 2- 5/10; bilateral low back hurts, shoots into R low back increase pain: rolling in bed, bend down & reach into dryer, 30-60 minutes of standing/activity tolerance decrease pain: tylenol, sit/rest, heat awaken in AM with sore back; sleeping is not disrupted due to back pain; Assessment PT Clinical Summary Genia has the diagnosis of R and L trochanteric bursitis, low back pain, chronic pain. Recently went to dr due to L knee pain. History includes: bilateral TKR, chronic back pain, L foot OA/pain, R hip trochanteric bursitis. Oswestry self assessment 40% limitation in activity level. Sleep is not disrupted due to back pain. With the evaluation, she has decreased strength of trunk and hips, hip abduction most weakness; 2 minute walking test distance of 320' with increased L foot and knee pain after walking; pain is increased with supine L hamstring stretch; piriformis stretch on R reported tighter than L; tenderness with palpation over R and L lower lumbar and sacral areas and L ITB. Poor walking
--- NOTE | 2024-02-29 14:54 | PTOPDC ---
Assessment and note entered by Ankita West, PT Discharge Report Assessment Status Discharge - Pt Not Present ICD-10 Condition Codes (PT) Pain in low back M54.50,Pain in right hip M25.551, Pain in left hip M25.552 Other ICD-10 Condition Codes ( R & L hip trochanteric bursitis PT) Onset Jul 2023 Subjective Information pt was not seen by PT this date, but treatment by [facility] [facility]. Reported Pain Level Pain Score 0: Self Report Additional Pain Score Comments No shooting pain for a week. Assessment PT Clinical Summary Genia has been seen for a total of 6 PT treatment sessions. She came in today and there was an issue with her insurance. She is doing better and wanted today to be her last day of therapy. Today, she reports she has not had any pain in the past few days, moving better, has her HEP and will continue with them. The goals were met, except 20 reps with the supine exercises. Discharge PT services. Plan of Care PT Services Indicated No
== END 2024-02-29 15:30 | disposition home or self-care (01) ==
LOC: ANHPT 09:45
PROVIDERS: PCP Family Medicine; Visit Provider Orthopaedic Surgery
DX: M70.61 Trochanteric bursitis, right hip (principal); M70.62 Trochanteric bursitis, left hip; M54.50 Low back pain, unspecified; G89.29 Other chronic pain
CPT/HCPCS: 97110; 97116; 97140; 97162; 97530

== ENCOUNTER 2024-04-06 07:20 | Outpatient (CLI) | payer MEDICARE, SELFPAY ==
[2024-04-06 07:44] LABS: Basophils Percent Auto 0.5 % (0.2-1.2); Eosinophils Absolute Auto 0.1 K/mm3 (0-0.3); Eosinophils Percent Auto 1.8 % (0-4.4); Hemoglobin 15.3 g/dL (12.0-15.0); Immature Granulocyte Absolute 0.02 K/mm3 (0.00-0.031); Immature Granulocyte Percent A 0.3 % (0-0.5); Lymphocytes Absolute Auto 2.08 K/mm3 (0.9-3.2); Lymphocytes Percent Auto 31.6 % (18.3-44.2); Mean Corpuscular Hemoglobin 30.4 pg (26-34); Mean Corpuscular Volume 89.5 fl (80-100); Mean Platelet Volume 10.2 fl (7.4-10.4); Monocytes Absolute Auto 0.6 K/mm3 (0.1-0.6); Monocytes Percent Auto 9.3 % (2.6-8.5); Neutrophils Absolute Auto 3.7 K/mm3 (1.3-6.7); Neutrophils Percent Auto 56.5 % (45.5-73.1); Platelet Count Result 212 k/mm3 (150-375); Red Blood Count 5.03 M/mm3 (4.2-5.4); Red Cell Distribution Width 13.1 % (11.5-14.5); White Blood Count 6.6 K/mm3 (4.5-10.0)
[2024-04-06 07:58] LABS: Alanine Aminotransferase 23 U/L (6-35); Albumin Level 4.2 g/dL (3.5-5.1); Alkaline Phosphatase 67 U/L (38-126); Anion Gap 7 mmol/L (4-12); Aspartate Amino Transferase 28 U/L (14-36); Bilirubin,Total 1.1 mg/dL (0.2-1.3); Blood Urea Nitrogen 11 mg/dL (7-17); Calcium 9.1 mg/dL (8.4-10.2); Carbon Dioxide 31 mmol/L (22-30); Chloride 100 mmol/L (98-107); Cholesterol 146 mg/dL (0-200); Estimated Glomerular Filt Rate > 60; Glucose 143 mg/dL (65-110); HDL Direct 47 mg/dL; Sodium 138 mmol/L (137-145); Triglycerides 234 mg/dL (<150)
[2024-04-06 08:09] LABS: LDL Cholesterol Direct 45 mg/dL
[2024-04-06 08:32] LABS: Hemoglobin A1C 6.2 % (<5.7)
[2024-04-06 08:49] LABS: Vitamin D 25 Hydroxy 22.2 ng/mL
[2024-04-06 09:21] LABS: Hepatitis C Virus Antibody Negative (Negative)
== END 2024-04-06 07:21 | disposition home or self-care (01) ==
LOC: ANHLAB 07:21
PROVIDERS: PCP Family Medicine; Visit Provider Family Medicine
DX: E55.9 Vitamin D deficiency, unspecified (principal); E78.2 Mixed hyperlipidemia; Z13.220 Encounter for screening for lipoid disorders; R73.09 Other abnormal glucose; I48.0 Paroxysmal atrial fibrillation; K58.0 Irritable bowel syndrome with diarrhea
CPT/HCPCS: 36415; 80048; 80061; 80076; 82306; 83036; 84443; 85025; 86803

== ENCOUNTER 2024-08-08 11:52 | Outpatient (CLI) | payer MEDICARE, SELFPAY ==
--- NOTE | ~2024-08-08 | XR_ITS ---
EXAMINATION: XR ankle LT min 3V, [id number] DATE: 08/08/2024 12:27 INDICATION: Left foot and ankle pain TECHNIQUE: 1. Anteroposterior, mortise, additional oblique and lateral view of the left ankle were obtained. 2. Dorsoplantar, oblique and lateral views of the left foot were obtained. COMPARISON: None. FINDINGS: Pes planus and mild hindfoot valgus. No fracture. Polyarticular osteoarthritis, severe at the second- fourth tarsal metatarsal joints, moderate severity at the trochlea cuboid and first tarsal metatarsal joints and mild at the ankle and many of the remaining joints throughout the left foot. Small Achill es and plantar calcaneal spurs. No ankle joint effusion. The soft tissues are unremarkable. IMPRESSION: 1. Pes planus with with hindfoot valgus. 2. Polyarticular osteoarthritis, severe at the second fourth tarsal metatarsal joints and mild to mod erate at many of the remaining joints in the left foot. Reviewed, dictated and finalized at location B. OUND SALES ADVISOR IMPRESSION: 1. Pes planus with with hindfoot valgus. 2. Polyarticular osteoarthritis, severe at the second fourth tarsal metatarsal joints and mild to moderate at many of the remaining joints in the left foot.
--- OUTSIDE RECORDS SUMMARY | 2024-08-08 13:52 | XMS_ITS | Clinical Summary ---
Author Organization [facility] [address] Address [address] [place] [address] Care Team Providers Care Senior Interactive Producer Name Role Phone Anup Ruelas MD Primary Care Provider [phone] Allergies Active Allergy Reactions Criticality Noted Date Comments Cephalexin Nausea only Low Codeine Nausea only Low Dexlansoprazole Unknown 07/21/2021 Levofloxacin Nausea only Low Metronidazole Nausea only Low Esomeprazole Hives Medium 01/31/2019 Niacin Cough Low 07/09/2020 Pseudoephedrine Other (See comments) Low 07/09/2020 Medications bacillus-proteas t-otduag-vwhei (DIGESTIVE ADVANTAGE INTENS BOW) 1 billion cell- 30,000 unit capsule take one daily 0 0 6 Active cholecalciferol (VITAMIN D3) 1,000 unit capsule take 1 by Oral route once 0 0 6 Active coenzyme Q10 (CO Q-10) 400 mg capsule take one daily 0 0 6 Active omega 2-fpm-goa-fish oil (FISH OIL) 300-1,000 mg capsule,delayed release(DR/EC) take 1 capsule by oral route 2 times every day 0 0 6 Active vitamin A-vitamin C-vit E-min tablet Take by mouth daily EYE PROMISE (ClearView™ Audio [employer]) Active dicyclomine (BENTYL) 20 mg tablet Take 1 tablet (20 mg total) by mouth 2 (two) times a day [address] (PROTONIX) 40 mg EC tablet Take 1 tablet (40 mg total) by mouth daily Active amoxicillin 500 mg capsule (PRE-MED) TAKE 4 CAPSULES BY ORAL ROUTE 1 HOUR PRIOR TO DENTAL APPOINTMENT 3 Active losartan (COZAAR) 25 mg tabletIndication s:Essential hypertension Take 1 tablet (25 mg total) by mouth daily 90 tablet 3 4 02/22/20 25 Active rivaroxaban (Xarelto) 20 mg tablet Take 1 tablet (20 mg total) by mouth daily 90 tablet 1 4 Active metoprolol (LOPRESSOR) 100 mg tabletIndication s:Paroxysmal atrial flutter (CMS/HCC) (HCC) Take 1 tablet (100 mg total) by mouth 2 (two) times a day 180 tablet 2 4 Active atorvastatin (LIPITOR) 40 mg tablet Take 1 tablet (40 mg total) by mouth daily 4 Active amitriptyline (ELAVIL) 25 mg tablet Take 1 tablet (25 mg total) by mouth nightly at bedtime 4 Active Active Problems Problem Noted Date Diagnosed Date Morbid (severe) obesity due to excess calories 0 08/03/2022 Pulmonary HTN 07/21/2021 Systolic murmur 01/16/2021 Neck mass 02/24/2019 Chest pain 01/31/2019 Abnormal stress test 01/10/2019 GERD (gastroesophageal reflux disease) 9 Chronic anticoagulation 07/05/2018 Paroxysmal atrial flutter (CMS/HCC) 01/21/2018 Vasovagal syncope 08/25/2017 Symptomatic PVCs 06/10/2016 Overview (09/17/2016): PVC's (premature ventricular contractions) Mixed diabetic hyperlipidemi a associated with type 2 diabetes mellitus (CMS/HCC) 03/17/2016 Overview (09/18/2016): Type 2 diabetes mellitus with complication, without long-term current use of insulin Rapid palpitations 03/17/2016 Overview (09/18/2016): Rapid palpitations Hypertension associated with diabetes 03/17/2016 Overview (09/18/2016): HTN (hypertension), benign Resolved Problems Problem Noted Date Diagnosed Date Resolved Date Dyslipidemia 03/17/2016 01/27/2022 Overview (09/16/2016): Dyslipidemia Encounters Date Type Department Care Team Description 05/25/2024 1:00 PM UTILITY OPERATOR YARN Office Visit [facility] [address] [place] [address] Mateusz Taylor MD Paroxysmal atrial flutter ([facility]) ([facility]) (Primary Dx); Chronic anticoagulation; Symptomatic PVCs; Hypertension associated with diabetes ([facility]); Mixed diabetic hyperlipidemia associated with type 2 diabetes mellitus ([facility]) ([facility]) from Last 3 Months Immunizations Immunization Administration Dates Next Due Influenza, Quadrivalent, Hig h Dose, Preservative Free, Intrr 03/18/2020 Influenza, Trivalent, High D ose, Split, Preservative Free, Intramuscular 03/09/2019,03/03/2018,03/02/2018,03/15,03/05/2016,03/10/2015,03/13/2014 Influenza, Trivalent, IM (MDV) 8,03/11/2015,03/12/2013,03/03 Pneumococcal Conjugate PCV 13 03/10/2015, 011 Pneumococcal Polysaccharide PPV23 03/11/2015, Tdap 05/11/2012,05/06/2012 ZOSTER LIVE 02/26/2015,02/15/2015 Surgical History Surgery Date Site/Laterality Comments HYSTERECTOMY 06/14/1979 - 06/13/1980 CHOLECYSTECTOMY 06/14/1989 - 06/13/1990 SIGMOIDECTOMY 06/14/2011 - 06/13/2012 REPLACEMENT TOTAL KNEE 06/14/2014 - 06/13/2015 Right REPLACEMENT TOTAL KNEE 06/14/2017 - 06/13/2018 Left Medical History Medical History Date Comments Hypertension Hypertension Gastroesophageal reflux disease GERD Diverticulitis of intestine Dive rticulitis; Comments: LRS 03/17/2016 - Overweight Arthritis A-fib ([facility]) ([facility]) Family History Medical History Relation Name Comments Breast cancer Other Family history of Cancer, breast; Breast cancer Sister 1 Breast cancer Sister 2 Relation Name Status Comments Other Sister 1 Sister 2 Social History Tobacco Use Types Packs/Day Years Used Date Smoking Tobacco: Never Smokeless Tobacco: Never Tobacco Cessation:Counseling Given: Not Answered Alcohol Use Standard Drinks/Week Comments Yes 0 (1 standard drink = 0.6 oz pur e alcohol) rarely Comments Unknown Sex and Gender Information Value Date Recorded Sex Assigned at Not on file Legal Sex Female 3:22 PM UTILITY OPERATOR YARN Gender Identity Not on file Sexual Orientation Not on file Obstetrics History Last Filed Vital Signs Vital Sign Reading Time Taken Comments Blood Pressure 126/74 05/25/2024 12:56 PM UTILITY OPERATOR YARN Pulse 64 05/25/2024 12:56 PM UTILITY OPERATOR YARN Temperature 36.6 C (97.9 F) 11/11/2021 10:43 AM CDT Respiratory Rate 16 02/16/2023 9:10 AM CDT Oxygen Saturation 97% 05/25/2024 12:56 PM UTILITY OPERATOR YARN Inhaled Oxygen Concentration - - Weight 98 kg (216 lb) 05/25/2024 12:56 PM UTILITY OPERATOR YARN Height 160 cm (5' 3 ) 05/25/2024 12:56 PM UTILITY OPERATOR YARN Body Mass Index 38.26 05/25/2024 12:56 PM UTILITY OPERATOR YARN Plan of Treatment Health Maintenance Due Date Last Done Comments Albumin Creatinine Ratio, Urine 1942 Depression Screening 1942 Fall Risk Assessment 1942 Hemoglobin A1C 1942 Osteoporosis Screening-Bone Density Scan 1942 eGFR 1942 Dilated Eye Exam 1942 Foot Exam 1942 Hepatitis B Screening 02/10/1960 Well Visit 65+ 2007 Zoster Vaccine (2 of 3) 04/23/2015 02/26/2015, 02/15 DTaP/Tdap/Td Vaccine (3 - Td or Tdap) 05/11/2022 05/11/2012, 05/06/2012 Influenza Vaccine (#1) 2024 , 03/09/2019, 03/14/2018, Additional history exists Lipid Panel 02/17/2024 02/16/2023, 07/16, 05/05/2021, Additional history exists Pneumococcal vaccine 65+ Completed 015, 03/10/2015, 02/23/2011, Additional history exists Procedures Procedure Name Priority Date/Time Associated Diagnosis Comments POCT LIPID PANEL Routine 02/16/2023 9:15 AM CDT Lipid screening from Last 3 Months or Most Recently Relevant to Health Maintenance Results * POCT lipid panel (02/16/2023 9:15 AM CDT) Cholesterol, POC 129 mg/dL HDL, POC 44 mg/dL Triglycerides, POC 192 mg/dL LDL Cholesterol POC 46 mg/dL Chol/HDL Ratio, POC 2.9 Non-HDL Cholesterol, POC 85 mg/dL Cholesterol Total, POC 129 mg/dL Capillary blood 02/16/2023 9 :15 AM CDT Marshall Velazquez MD POINT OF CARE TEST ORD ERABLES Final Result from Last 3 Months or Most Recently Relevant to Health Maintenance Insurance MEDICARE SOL[employer]IONS [facility] MEDICARE Address: [address] [address] [employer] [facility] MEDIC[facility] Address: [address] [address] [place] [address] MED[employer]ARE [employer] Care Teams Senior Interactive Producer Relationship Specialty Start Date End Date Anup Ruelas MD PCP - General Family Medicine 09/08/22
--- OUTSIDE RECORDS SUMMARY | 2024-08-08 13:52 | XMS_ITS | Encounter Summary ---
Author Organization [facility] Healthcare Address [address] [place] [address] Care Team Providers Care Bicycle Courier Name Role Phone Penny Bernal MD Primary Care Provider + Reason for Visit * Diagnostic Imaging (Routine) - Closed Specialty Diagnoses / Procedures Referred By Contac t Referred To Contact Procedures Breast Imaging Screening Outside Reference Adriana Joseph MD PhD [address] [address] [phone] [place] [address] Phone: tel: fax: Referral ID Status Reason Start Date Expiration Date Visits Re quested Visits Authorized [id number] Closed 10/27/2021 11/26/2022 1 1 Encounter Details Date Type Department Care Team (Late st Contact Info) Description 06/03/2016 12:05 AM LABOR GANG SUPERVISOR Hospital Encounter [facility] ([facility]) [address] [place] [address] Social History Tobacco Use Types Packs/Day Years Used Date Smoking Tobacco: Never Smokeless Tobacco: Never Alcohol Use Standard Drinks/Week Comments Yes 0 (1 standard drink = 0.6 oz pur e alcohol) rarely Comments Unknown Sex and Gender Information Value Date Recorded Sex Assigned at Not on file Legal Sex Female 3:22 PM LABOR GANG SUPERVISOR Gender Identity Not on file Sexual Orientation Not on file documented as of this encounter Plan of Treatment Not on file documented as of this encounter Procedures Procedure Name Priority Date/Time Associated Diagnosis Comments BREAST IMAGING MG SCREENING OUTSIDE REFERENCE Routine 06/03/2016 12:05 AM LABOR GANG SUPERVISOR documented in this encounter Results * Breast Imaging Screening Outside Reference (06/03/2016 12:05 AM LABOR GANG SUPERVISOR) Impressions [email or web address] - 10/27/2021 10:35 AM CDT These images are for Reference purposes only and have not been reviewed by [facility]. There will be no report generated by a [facility] Radiologist. Narrative [facility] - 10/27/2021 10:35 AM CDT EXAMINATION: Images For Reference Purposes Only us Adriana Joseph MD PhD IMG MAMMO PROCEDURES Final Result [facility] documented in this encounter Visit Diagnoses Not on filedocumented in this encounter Care Teams Bicycle Courier Relationship Specialty Start Date End Date Penny Bernal MD [address] [place] [address] PCP - General 08/23/10 01/13/18 documented as of this encounter
--- OUTSIDE RECORDS SUMMARY | 2024-08-08 13:52 | XMS_ITS | Referral Summary ---
Author Organization [facility] [address] [place] [address] [address] [place] [address] Care Team Providers Care Telegraph Office Telephone Clerk Name Role Phone Anup Ruelas MD Primary Care Provider [phone] Encounters Date Type Department Care Team Description 05/25/2024 1:00 PM DIRECTOR OF SPECIAL EVENTS Office Visit [facility] [address] [facility] [address] [place] [address] Mateusz Taylor MD Paroxysmal atrial flutter (CMS/HCC) ([facility]) (Primary Dx); Chronic anticoagulation; Symptomatic PVCs; Hypertension associated with diabetes (HCC); Mixed diabetic hyperlipidemia associated with type 2 diabetes mellitus (CMS/HCC) (HCC) from Last 3 Months Allergies Active Allergy Reactions Criticality Noted Date Comments Cephalexin Nausea only Low Codeine Nausea only Low Dexlansoprazole Unknown 07/21/2021 Levofloxacin Nausea only Low Metronidazole Nausea only Low Esomeprazole Hives Medium 01/31/2019 Niacin Cough Low 07/09/2020 Pseudoephedrine Other (See comments) Low 07/09/2020 Medications bacillus-proteas x-peejse-jdrlo (DIGESTIVE ADVANTAGE INTENS BOW) 1 billion cell- 30,000 unit capsule take one daily 0 0 6 Active cholecalciferol (VITAMIN D3) 1,000 unit capsule take 1 by Oral route once 0 0 6 Active coenzyme Q10 (CO Q-10) 400 mg capsule take one daily 0 0 6 Active omega 7-ham-fya-fish oil (FISH OIL) 300-1,000 mg capsule,delayed release(DR/EC) take 1 capsule by oral route 2 times every day 0 0 6 Active vitamin A-vitamin C-vit E-min tablet Take by mouth daily EYE PROMISE ([employer] ([employer]ICA)) Active dicyclomine (BENTYL) 20 mg tablet Take [...] Date Dyslipidemia 03/17/2016 01/27/2022 Overview (09/16/2016): Dyslipidemia Immunizations Immunization Administration Dates Next Due Influenza, Quadrivalent, Hig h Dose, Preservative Free, Intrr 03/18/2020 Influenza, Trivalent, High D ose, Split, Preservative Free, Intramuscular 03/09/2019,03/03/2018,03/02/2018,03/15,03/05/2016,03/10/2015,03/13/2014 Influenza, Trivalent, IM (MDV) 8,03/11/2015,03/12/2013,03/03 Pneumococcal Conjugate PCV 13 03/10/2015, 011 Pneumococcal Polysaccharide PPV23 03/11/2015, Tdap 05/11/2012,05/06/2012 ZOSTER LIVE 02/26/2015,02/15/2015 Social History Tobacco Use Types Packs/Day Years Used Date Smoking Tobacco: Never Smokeless Tobacco: Never Tobacco Cessation:Counseling Given: Not Answered Alcohol Use Standard Drinks/Week Comments Yes 0 (1 standard drink = 0.6 oz pur e alcohol) rarely Comments Unknown Sex and Gender Information Value Date Recorded Sex Assigned at Not on file Legal Sex Female 3:22 PM DIRECTOR OF SPECIAL EVENTS Gender Identity Not on file Sexual Orientation Not on file Last Filed Vital Signs Vital Sign Reading Time Taken Comments Blood Pressure 126/74 05/25/2024 12:56 PM DIRECTOR OF SPECIAL EVENTS Pulse 64 05/25/2024 12:56 PM DIRECTOR OF SPECIAL EVENTS Temperature 36.6 C (97.9 F) 11/11/2021 10:43 AM CDT Respiratory Rate 16 02/16/2023 9:10 AM CDT Oxygen Saturation 97% 05/25/2024 12:56 PM DIRECTOR OF SPECIAL EVENTS Inhaled Oxygen Concentration - - Weight 98 kg (216 lb) 05/25/2024 12:56 PM DIRECTOR OF SPECIAL EVENTS Height 160 cm (5' 3 ) 05/25/2024 12:56 PM DIRECTOR OF SPECIAL EVENTS Body Mass Index 38.26 05/25/2024 12:56 PM DIRECTOR OF SPECIAL EVENTS Plan of Treatment Not on file Procedures Procedure Name Priority Date/Time Associated Diagnosis [...] Relevant to Health Maintenance Insurance MEDICARE SOLUTIONS MED[employer] SOL[employer]IONS [employer]IONS Care Teams Telegraph Office Telephone Clerk Relationship Specialty Start Date End Date Anup Ruelas MD PCP - General Family Medicine 09/08/22
--- OUTSIDE RECORDS SUMMARY | 2024-08-08 13:52 | XMS_ITS | Encounter Summary ---
Author Organization [facility] Healthcare Address [address] [place] [address] Care Team Providers Care Survival Specialist Name Role Phone Tom Case MD Primary Care Provider [phone] Reason for Visit * Diagnostic Imaging (Routine) - Closed Specialty Diagnoses / Procedures Referred By Contac t Referred To Contact Procedures Breast Imaging Diagnostic Outside Reference Adriana Joseph MD PhD [address] [phone] [place] [address] Phone: tel: fax: Referral ID Status Reason Start Date Expiration Date Visits Re quested Visits Authorized [id number] Closed 10/27/2021 11/26/2022 1 1 Encounter Details Date Type Department Care Team (Late st Contact Info) Description 08/20/2020 12:05 AM PATHOLOGIST ASSISTANT Hospital Encounter [facility] [address] [place] [address] Social History Tobacco Use Types Packs/Day Years Used Date Smoking Tobacco: Never Smokeless Tobacco: Never Alcohol Use Standard Drinks/Week Comments Yes 0 (1 standard drink = 0.6 oz pur e alcohol) rarely Comments Unknown Sex and Gender Information Value Date Recorded Sex Assigned at Not on file Legal Sex Female 3:22 PM PATHOLOGIST ASSISTANT Gender Identity Not on file Sexual Orientation Not on file documented as of this encounter Plan of Treatment Not on file documented as of this encounter Procedures Procedure Name Priority Date/Time Associated Diagnosis Comments BREAST IMAGING MG DIAGNOSTIC OUTSIDE REFERENCE Routine 08/20/2020 12:05 AM PATHOLOGIST ASSISTANT documented in this encounter Results * Breast Imaging Diagnostic Outside Reference (08/20/2020 12:05 AM PATHOLOGIST ASSISTANT) Impressions [facility] - 10/27/2021 10:35 AM CDT These images are for Reference purposes only and have not been reviewed by [facility]. There will be no report generated by a [facility] Radiologist. Narrative [facility] - 10/27/2021 10:35 AM CDT EXAMINATION: Images For Reference Purposes Only us Adriana Joseph MD PhD IMG MAMMO PROCEDURES Final Result [email or web address] documented in this encounter Visit Diagnoses Not on filedocumented in this encounter Care Teams Survival Specialist Relationship Specialty Start Date End Date Tom Case MD [address] [place] [address] PCP - General Internal Medicine 01/14/18 01/26/22 documented as of this encounter
--- OUTSIDE RECORDS SUMMARY | 2024-08-08 13:52 | XMS_ITS | Encounter Summary ---
Author Organization [facility] Healthcare Address [address] [place] [address] Care Team Providers Care Contract Forester Name Role Phone Tom Case MD Primary Care Provider [phone] Reason for Visit * Diagnostic Imaging (Routine) - Closed Specialty Diagnoses / Procedures Referred By Contac t Referred To Contact Procedures Breast Imaging Screening Outside Reference Adriana Joseph MD PhD [address] [phone] [place] [address] Phone: tel: fax: Referral ID Status Reason Start Date Expiration Date Visits Re quested Visits Authorized [id number] Closed 10/27/2021 11/26/2022 1 1 Encounter Details Date Type Department Care Team (Late st Contact Info) Description 07/20/2019 Hospital Encounter [facility] [address] [place] [address] Social History Tobacco Use Types Packs/Day Years Used Date Smoking Tobacco: Never Smokeless Tobacco: Never Alcohol Use Standard Drinks/Week Comments Yes 0 (1 standard drink = 0.6 oz pur e alcohol) rarely Comments Unknown Sex and Gender Information Value Date Recorded Sex Assigned at Not on file Legal Sex Female 3:22 PM POLISHER APPRENTICE Gender Identity Not on file Sexual Orientation Not on file documented as of this encounter Plan of Treatment Not on file documented as of this encounter Procedures Procedure Name Priority Date/Time Associated Diagnosis Comments BREAST IMAGING MG SCREENING OUTSIDE REFERENCE Routine 07/20/2019 12:00 AM POLISHER APPRENTICE documented in this encounter Results * Breast Imaging Screening Outside Reference (07/20/2019 12:00 AM POLISHER APPRENTICE) Impressions [email or web address] - 10/27/2021 10:34 AM CDT These images are for Reference purposes only and have not been reviewed by [facility]. There will be no report generated by a [facility] Radiologist. Narrative [facility] - 10/27/2021 10:34 AM CDT EXAMINATION: Images For Reference Purposes Only us Adriana Joseph MD PhD IMG MAMMO PROCEDURES Final Result [email or web address] documented in this encounter Visit Diagnoses Not on filedocumented in this encounter Care Teams Contract Forester Relationship Specialty Start Date End Date Tom Case MD [address] [place] [address] PCP - General Internal Medicine 01/14/18 01/26/22 documented as of this encounter
--- OUTSIDE RECORDS SUMMARY | 2024-08-08 13:52 | XMS_ITS | Encounter Summary ---
Author Organization [facility] Healthcare Address [address] [place] [address] Care Team Providers Care Silk Washing Machine Operator Name Role Phone Penny Bernal MD Primary Care Provider + Reason for Visit * Diagnostic Imaging (Routine) - Closed Specialty Diagnoses / Procedures Referred By Contac t Referred To Contact Procedures Breast Imaging Screening Outside Reference Adriana Joseph MD PhD [address] [phone] [place] [address] Phone: tel: fax: Referral ID Status Reason Start Date Expiration Date Visits Re quested Visits Authorized [id number] Closed 10/27/2021 11/26/2022 1 1 Encounter Details Date Type Department Care Team (Late st Contact Info) Description 06/03/2016 Hospital Encounter [facility] [address] [place] [address] Social History Tobacco Use Types Packs/Day Years Used Date Smoking Tobacco: Never Smokeless Tobacco: Never Alcohol Use Standard Drinks/Week Comments Yes 0 (1 standard drink = 0.6 oz pur e alcohol) rarely Comments Unknown Sex and Gender Information Value Date Recorded Sex Assigned at Not on file Legal Sex Female 3:22 PM RECREATION TEACHER Gender Identity Not on file Sexual Orientation Not on file documented as of this encounter Plan of Treatment Not on file documented as of this encounter Procedures Procedure Name Priority Date/Time Associated Diagnosis Comments BREAST IMAGING MG SCREENING OUTSIDE REFERENCE Routine 06/03/2016 12:00 AM RECREATION TEACHER documented in this encounter Results * Breast Imaging Screening Outside Reference (06/03/2016 12:00 AM RECREATION TEACHER) Impressions [email or web address] - 10/27/2021 10:35 AM CDT These images are for Reference purposes only and have not been reviewed by [facility]. There will be no report generated by a [facility] Radiologist. Narrative [facility] - 10/27/2021 10:35 AM CDT EXAMINATION: Images For Reference Purposes Only us Adriana Joseph MD PhD IMG MAMMO PROCEDURES Final Result [email or web address] documented in this encounter Visit Diagnoses Not on filedocumented in this encounter Care Teams Silk Washing Machine Operator Relationship Specialty Start Date End Date Penny Bernal MD [address] [place] [address] PCP - General 08/23/10 01/13/18 documented as of this encounter
--- OUTSIDE RECORDS SUMMARY | 2024-08-08 13:52 | XMS_ITS | Encounter Summary ---
Author Organization [facility] Healthcare Address [address] [place] [address] Care Team Providers Care Butcherette Name Role Phone Tom Case MD Primary Care Provider [phone] Reason for Visit * Diagnostic Imaging (Routine) - Closed Specialty Diagnoses / Procedures Referred By Contac t Referred To Contact Procedures Breast Imaging US Outside Reference Adriana Joseph MD PhD [address] [phone] [place] [address] Phone: tel: fax: Referral ID Status Reason Start Date Expiration Date Visits Re quested Visits Authorized [id number] Closed 10/27/2021 11/26/2022 1 1 Encounter Details Date Type Department Care Team (Late st Contact Info) Description 08/20/2020 Hospital Encounter [facility] [address] [place] [address] Social History Tobacco Use Types Packs/Day Years Used Date Smoking Tobacco: Never Smokeless Tobacco: Never Alcohol Use Standard Drinks/Week Comments Yes 0 (1 standard drink = 0.6 oz pur e alcohol) rarely Comments Unknown Sex and Gender Information Value Date Recorded Sex Assigned at Not on file Legal Sex Female 3:22 PM TERRAZZO LAYER HELPER Gender Identity Not on file Sexual Orientation Not on file documented as of this encounter Plan of Treatment Not on file documented as of this encounter Procedures Procedure Name Priority Date/Time Associated Diagnosis Comments BREAST IMAGING US OUTSIDE REFERENCE Routine 08/20/2020 12:00 AM TERRAZZO LAYER HELPER documented in this encounter Results * Breast Imaging US Outside Reference (08/20/2020 12:00 AM TERRAZZO LAYER HELPER) Impressions [email or web address] - 10/27/2021 10:33 AM CDT These images are for Reference purposes only and have not been reviewed by [facility] Radiology. There will be no report generated by a [facility] Radiologist. Narrative [facility] - 10/27/2021 10:33 AM CDT EXAMINATION: Images For Reference Purposes Only us Adriana Joseph MD PhD IMG MAMMO PROCEDURES Final Result [email or web address] documented in this encounter Visit Diagnoses Not on filedocumented in this encounter Care Teams Butcherette Relationship Specialty Start Date End Date Tom Case MD [address] [place] [address] PCP - General Internal Medicine 01/14/18 01/26/22 documented as of this encounter
--- OUTSIDE RECORDS SUMMARY | 2024-08-08 13:52 | XMS_ITS | Encounter Summary ---
Author Organization [facility] Medical Group Address [address] [place] [address] Care Team Providers Care Battery Assembler Name Role Phone Penny Bernal MD Primary Care Provider + Tom Case MD Primary Care Provider [phone] Navin Brager MD Primary Care Provider [phone] Anup Ruelas MD Primary Care Provider + [phone] Encounter Details Date Type Department Care Team (Late st Contact Info) Description 03/30/2012 Orders Only [facility] Health Information Management [address] [place] [address] Scanning, Provider Social History Tobacco Use Types Packs/Day Years Used Date Smoking Tobacco: Never Assessed Comments Unknown Sex and Gender Information Value Date Recorded Sex Assigned at Not on file Legal Sex Female 3:22 PM AUDIO VIDEO TECHNICIAN Gender Identity Not on file Sexual Orientation Not on file documented as of this encounter Plan of Treatment Not on file documented as of this encounter Procedures Procedure Name Priority Date/Time Associated Diagnosis Comments CARDIOLOGY DOCUMENT SCAN 03/30/2012 documented in this encounter Results * SCAN - CARDIOLOGY (03/30/2012) Anatomical Region Laterality Modality Other us Provider Scanning CV CARDIAC SERVICES PROCEDURES Final Result documented in this encounter Visit Diagnoses Not on filedocumented in this encounter Care Teams Battery Assembler Relationship Specialty Start Date End Date Penny Bernal MD [address] [place] [address] PCP - General 08/23/10 01/13/18 Tom Case MD [address] [address] PCP - General Internal Medicine 01/14/18 01/26/22 Navin Barger MD [address] [address] PCP - General Family Medicine 01/27/22 09/07/22 Anup Ruelas MD [facility] [address] [address] PCP - General Family Medicine 09/08/22 documented as of this encounter
--- OUTSIDE RECORDS SUMMARY | 2024-08-08 13:52 | XMS_ITS | Encounter Summary ---
Author Organization [facility] Healthcare Address [address] [place] [address] Care Team Providers Care Coal And Ash Supervisor Name Role Phone Tom Case MD Primary Care Provider [phone] Reason for Visit * Diagnostic Imaging (Routine) - Closed Specialty Diagnoses / Procedures Referred By Contac t Referred To Contact Procedures Breast Imaging Screening Outside Reference Adriana Joseph MD PhD [address] [id number] [place] [address] Phone: tel: fax: Referral ID Status Reason Start Date Expiration Date Visits Re quested Visits Authorized [id number] Closed 10/27/2021 11/26/2022 1 1 Encounter Details Date Type Department Care Team (Late st Contact Info) Description 07/25/2020 Hospital Encounter [facility] [address] [place] [address] Social History Tobacco Use Types Packs/Day Years Used Date Smoking Tobacco: Never Smokeless Tobacco: Never Alcohol Use Standard Drinks/Week Comments Yes 0 (1 standard drink = 0.6 oz pur e alcohol) rarely Comments Unknown Sex and Gender Information Value Date Recorded Sex Assigned at Not on file Legal Sex Female 3:22 PM PAYROLL AUDITOR Gender Identity Not on file Sexual Orientation Not on file documented as of this encounter Plan of Treatment Not on file documented as of this encounter Procedures Procedure Name Priority Date/Time Associated Diagnosis Comments BREAST IMAGING MG SCREENING OUTSIDE REFERENCE Routine 07/25/2020 12:00 AM PAYROLL AUDITOR documented in this encounter Results * Breast Imaging Screening Outside Reference (07/25/2020 12:00 AM PAYROLL AUDITOR) Impressions [facility] - 10/27/2021 10:34 AM CDT These images are for Reference purposes only and have not been reviewed by [facility]. There will be no report generated by a [facility] Radiologist. Narrative [facility] - 10/27/2021 10:34 AM CDT EXAMINATION: Images For Reference Purposes Only us Adriana Joseph MD PhD IMG MAMMO PROCEDURES Final Result [facility] documented in this encounter Visit Diagnoses Not on filedocumented in this encounter Care Teams Coal And Ash Supervisor Relationship Specialty Start Date End Date Tom Case MD [address] [place] [address] PCP - General Internal Medicine 01/14/18 01/26/22 documented as of this encounter
--- OUTSIDE RECORDS SUMMARY | 2024-08-08 13:52 | XMS_ITS | Encounter Summary ---
Author Organization [facility] Healthcare Address [address] [place] [address] Care Team Providers Care Business Investor Name Role Phone Tom Case MD Primary Care Provider [phone] Reason for Visit * Diagnostic Imaging (Routine) - Closed Specialty Diagnoses / Procedures Referred By Contac t Referred To Contact Procedures Breast Imaging Screening Outside Reference Adriana Joseph MD PhD [address] [id number] [place] [address] Phone: tel: fax: Referral ID Status Reason Start Date Expiration Date Visits Re quested Visits Authorized [id number] Closed 10/27/2021 11/26/2022 1 1 Encounter Details Date Type Department Care Team (Late st Contact Info) Description 06/15/[address] [facility] [address] [place] [address] Social History Tobacco Use Types Packs/Day Years Used Date Smoking Tobacco: Never Smokeless Tobacco: Never Alcohol Use Standard Drinks/Week Comments Yes 0 (1 standard drink = 0.6 oz pur e alcohol) rarely Comments Unknown Sex and Gender Information Value Date Recorded Sex Assigned at Not on file Legal Sex Female 3:22 PM NATURAL GAS PLANT TECHNICIAN Gender Identity Not on file Sexual Orientation Not on file documented as of this encounter Plan of Treatment Not on file documented as of this encounter Procedures Procedure Name Priority Date/Time Associated Diagnosis Comments BREAST IMAGING MG SCREENING OUTSIDE REFERENCE Routine 06/15/2018 12:00 AM NATURAL GAS PLANT TECHNICIAN documented in this encounter Results * Breast Imaging Screening Outside Reference (06/15/2018 12:00 AM NATURAL GAS PLANT TECHNICIAN) Impressions [facility] - 10/27/2021 10:34 AM CDT These images are for Reference purposes only and have not been reviewed by [facility]. There will be no report generated by a [facility] Radiologist. Narrative [facility] - 10/27/2021 10:34 AM CDT EXAMINATION: Images For Reference Purposes Only us Adriana Joseph MD PhD IMG MAMMO PROCEDURES Final Result [facility] documented in this encounter Visit Diagnoses Not on filedocumented in this encounter Care Teams Business Investor Relationship Specialty Start Date End Date Tom Case MD [address] [place] [address] PCP - General Internal Medicine 01/14/18 01/26/22 documented as of this encounter
--- OUTSIDE RECORDS SUMMARY | 2024-08-08 13:52 | XMS_ITS | Encounter Summary ---
Author Organization [facility] Healthcare Address [address] [place] [address] Care Team Providers Care Registered Health Nurse Name Role Phone Penny Bernal MD Primary Care Provider + Reason for Visit * Diagnostic Imaging (Routine) - Closed Specialty Diagnoses / Procedures Referred By Contac t Referred To Contact Procedures Breast Imaging Screening Outside Reference Adriana Joseph MD PhD [address] [facility] [employer] [facility] [address] [id number] [place] [address] Phone: tel: fax: Referral ID Status Reason Start Date Expiration Date Visits Re quested Visits Authorized [id number] Closed 10/27/2021 11/26/2022 1 1 Encounter Details Date Type Department Care Team (Late st Contact Info) Description 06/10/2017 Hospital Encounter [facility] [address] [place] [address] Social History Tobacco Use Types Packs/Day Years Used Date Smoking Tobacco: Never Smokeless Tobacco: Never Alcohol Use Standard Drinks/Week Comments Yes 0 (1 standard drink = 0.6 oz pur e alcohol) rarely Comments Unknown Sex and Gender Information Value Date Recorded Sex Assigned at Not on file Legal Sex Female 3:22 PM EQUIPMENT SUPERINTENDENT Gender Identity Not on file Sexual Orientation Not on file documented as of this encounter Plan of Treatment Not on file documented as of this encounter Procedures Procedure Name Priority Date/Time Associated Diagnosis Comments BREAST IMAGING MG SCREENING OUTSIDE REFERENCE Routine 06/10/2017 12:00 AM EQUIPMENT SUPERINTENDENT documented in this encounter Results * Breast Imaging Screening Outside Reference (06/10/2017 12:00 AM EQUIPMENT SUPERINTENDENT) Impressions [facility] - 10/27/2021 10:35 AM CDT These images are for Reference purposes only and have not been reviewed by [facility] Radiology. There will be no report generated by a [facility] Radiologist. Narrative [facility] - 10/27/2021 10:35 AM CDT EXAMINATION: Images For Reference Purposes Only us Adriana Joseph MD PhD IMG MAMMO PROCEDURES Final Result [facility] documented in this encounter Visit Diagnoses Not on filedocumented in this encounter Care Teams Registered Health Nurse Relationship Specialty Start Date End Date Penny Bernal MD [address] [place] [address] PCP - General 08/23/10 01/13/18 documented as of this encounter
== END 2024-08-08 11:53 | disposition home or self-care (01) ==
PROVIDERS: PCP Family Medicine; Visit Provider Family Medicine
DX: M19.072 Primary osteoarthritis, left ankle and foot (principal)
CPT/HCPCS: 73610; 73630

== ENCOUNTER 2024-10-09 19:29 | Emergency (ER) | payer MEDICARE, SELFPAY ==
--- NOTE | ~2024-10-09 | CT_ITS ---
Clinical Indication: Chest pain, shortness of breath CT Scan of the Chest with Contrast: Technique: Contiguous sections were acquired throughout the chest after intravenous administration of 100 cc of Omnipaque 350. Dose reduction technique was used on this scan by utilizing automated expos ure control and iterative reconstruction technique. The dose-length product (DLP) was 424.46 mGy-cm. Findings: There is no evidence of any significant mediastinal, hilar or axillary lymphadenopathy. There is no f illing defect in the pulmonary arterial tree to suggest pulmonary embolus. There is no evidence of ao rtic dissection or aneurysm. There is no evidence of pleural or pericardial effusion. The lungs are clear. No pulmonary nodules or infiltrates are noted. Images through the upper abdomen reveal no abnormalities. Impression: No evidence of pulmonary embolus, aortic dissection, or aortic aneurysm. Clear lungs. Reviewed, dictated and finalized at [facility]. Impression: No evidence of pulmonary embolus, aortic dissection, or aortic aneurysm. Clear lungs.
--- OUTSIDE RECORDS SUMMARY | 2024-10-09 19:31 | XMS_ITS | Encounter Summary ---
Author Organization [facility] Healthcare Address [address] [place] [address] Care Team Providers Care Printer Slotter Helper Name Role Phone Tom Case MD Primary Care Provider [phone] Reason for Visit * Diagnostic Imaging (Routine) - Closed Specialty Diagnoses / Procedures Referred By Contac t Referred To Contact Procedures Breast Imaging Screening Outside Reference Adriana Joseph MD PhD [address] [id number] [place] [address] Phone: tel: fax: Referral ID Status Reason Start Date Expiration Date Visits Re quested Visits Authorized [id number] Closed 10/27/2021 11/26/2022 1 1 Encounter Details Date Type Department Care Team (Late st Contact Info) Description 07/20/2019 Hospital Encounter [facility] [address] [place] [address] Social History Tobacco Use Types Packs/Day Years Used Date Smoking Tobacco: Never Smokeless Tobacco: Never Alcohol Use Standard Drinks/Week Comments Yes 0 (1 standard drink = 0.6 oz pur e alcohol) rarely Comments Unknown Sex and Gender Information Value Date Recorded Sex Assigned at Not on file Legal Sex Female 3:22 PM TOOL REPAIR TECHNICIAN Gender Identity Not on file Sexual Orientation Not on file documented as of this encounter Plan of Treatment Not on file documented as of this encounter Procedures Procedure Name Priority Date/Time Associated Diagnosis Comments BREAST IMAGING MG SCREENING OUTSIDE REFERENCE Routine 07/20/2019 12:00 AM TOOL REPAIR TECHNICIAN documented in this encounter Results * Breast Imaging Screening Outside Reference (07/20/2019 12:00 AM TOOL REPAIR TECHNICIAN) Impressions [facility] - 10/27/2021 10:34 AM CDT These images are for Reference purposes only and have not been reviewed by [facility]iology. There will be no report generated by a [facility] Radiologist. Narrative [facility] - 10/27/2021 10:34 AM CDT EXAMINATION: Images For Reference Purposes Only us Adriana Jsoeph MD PhD IMG MAMMO PROCEDURES Final Result [facility] documented in this encounter Visit Diagnoses Not on filedocumented in this encounter Care Teams Printer Slotter Helper Relationship Specialty Start Date End Date Tom Case MD [address] [place] [address] PCP - General Internal Medicine 01/14/18 01/26/22 documented as of this encounter
--- OUTSIDE RECORDS SUMMARY | 2024-10-09 19:31 | XMS_ITS | Encounter Summary ---
Author Organization [facility] Medical Group Address [address] [place] [address] Care Team Providers Care Grinder Lap Name Role Phone Penny Bernal MD Primary Care Provider + Tom Case MD Primary Care Provider [phone] Navin Barger MD Primary Care Provider [phone] Anup Ruelas MD Primary Care Provider + [phone] Encounter Details Date Type Department Care Team (Late st Contact Info) Description 03/30/2012 Orders Only [facility] Health Information Management [address] [place] [address] Scanning, Provider Social History Tobacco Use Types Packs/Day Years Used Date Smoking Tobacco: Never Assessed Comments Unknown Sex and Gender Information Value Date Recorded Sex Assigned at Not on file Legal Sex Female 3:22 PM CAREER REPRESENTATIVE Gender Identity Not on file Sexual Orientation [...] on filedocumented in this encounter Care Teams Grinder Lap Relationship Specialty Start Date End Date Penny Bernal MD [address] [place] [address] PCP - General 08/23/10 01/13/18 Tom Case MD [address] [facility] [address] [facility] [address] [place] [address] PCP - General Internal Medicine 01/14/18 01/26/22 Navin Barger MD [address] [address] PCP - General Family Medicine 01/27/22 09/07/22 Anup Ruelas MD [facility] [address] [address] PCP - General Family Medicine 09/08/22 documented as of this encounter
--- OUTSIDE RECORDS SUMMARY | 2024-10-09 19:31 | XMS_ITS | Encounter Summary ---
Author Organization [facility] Healthcare Address [address] [place] [address] Care Team Providers Care Sample Case Porter Name Role Phone Tom Case MD Primary Care Provider [phone] Reason for Visit * Diagnostic Imaging (Routine) - Closed Specialty Diagnoses / Procedures Referred By Contac t Referred To Contact Procedures Breast Imaging Diagnostic Outside Reference Adriana Joseph MD PhD [address] [facility] [address] [id number] [place] [address] Phone: tel: fax: Referral ID Status Reason Start Date Expiration Date Visits Re quested Visits Authorized [id number] Closed 10/27/2021 11/26/2022 1 1 Encounter Details Date Type Department Care Team (Late st Contact Info) Description 08/20/2020 12:05 AM ORTHOPEDIC BRACE MAKER Hospital Encounter [facility] [address] [place] [address] Social History Tobacco Use Types Packs/Day Years Used Date Smoking Tobacco: Never Smokeless Tobacco: Never Alcohol Use Standard Drinks/Week Comments Yes 0 (1 standard drink = 0.6 oz pur e alcohol) rarely Comments Unknown Sex and Gender Information Value Date Recorded Sex Assigned at Not on file Legal Sex Female 3:22 PM ORTHOPEDIC BRACE MAKER Gender Identity Not on file Sexual Orientation Not on file documented as of this encounter Plan of Treatment Not on file documented as of this encounter Procedures Procedure Name Priority Date/Time Associated Diagnosis Comments BREAST IMAGING MG DIAGNOSTIC OUTSIDE REFERENCE Routine 08/20/2020 12:05 AM ORTHOPEDIC BRACE MAKER documented in this encounter Results * Breast Imaging Diagnostic Outside Reference (08/20/2020 12:05 AM ORTHOPEDIC BRACE MAKER) Impressions [facility] - 10/27/2021 10:35 AM CDT These images are for Reference purposes only and have not been reviewed by [facility] Radiology. There will be no report generated by a [facility] Radiologist. Narrative [facility] - 10/27/2021 10:35 AM CDT EXAMINATION: Images For Reference Purposes Only us Adriana Joseph MD PhD IMG MAMMO PROCEDURES Final Result [facility] documented in this encounter Visit Diagnoses Not on filedocumented in this encounter Care Teams Sample Case Porter Relationship Specialty Start Date End Date Tom Case MD [address] [place], [place] [id number] PCP - General Internal Medicine 01/14/18 01/26/22 documented as of this encounter
--- OUTSIDE RECORDS SUMMARY | 2024-10-09 19:32 | XMS_ITS | Clinical Summary ---
Author Organization [facility] [address] Address [address] [place] [address] Care Team Providers Care Weaving Machine Operator Name Role Phone Anup Ruelas MD Primary Care Provider [phone] Allergies Active Allergy Reactions Criticality Noted Date Comments Cephalexin Nausea only Low Codeine Nausea only Low Dexlansoprazole Unknown 07/21/2021 Levofloxacin Nausea only Low Metronidazole Nausea only Low Esomeprazole Hives Medium 01/31/2019 Niacin Cough Low 07/09/2020 Pseudoephedrine Other (See comments) Low 07/09/2020 Medications bacillus-protea cs-wnvvac-ezjjd (DIGESTIVE ADVANTAGE INTENS BOW) 1 billion cell- 30,000 unit capsule take one daily 0 0 06/10/20 16 Active cholecalciferol (VITAMIN D3) 1,000 unit capsule take 1 by Oral route once 0 0 06/10/20 16 Active coenzyme Q10 (CO Q-10) 400 mg capsule take one daily 0 0 06/10/20 16 Active omega 2-bdc-adk-fish oil (FISH OIL) 300-1,000 mg capsule,delayed release(DR/EC) take 1 capsule by oral route 2 times every day 0 0 06/10/20 16 Active vitamin A-vitamin C-vit E-min tablet Take by mouth daily EYE PROMISE ([facility] [employer] (TEN)) Active dicyclomine (BENTYL) 20 mg tablet Take 1 tablet (20 mg total) by mouth 2 (two) times a day 06/03/[address] (PROTONIX) 40 mg EC tablet Take 1 tablet (40 mg total) by mouth daily Active amoxicillin 500 mg capsule (PRE-MED) TAKE 4 CAPSULES BY ORAL ROUTE 1 HOUR PRIOR TO DENTAL APPOINTMENT 12/30/19 23 Active losartan (COZAAR) 25 mg tabletIndicatio ns:Essential hypertension Take 1 tablet (25 mg total) by mouth daily 90 tablet 3 02/22/20 24 025 Active metoprolol (LOPRESSOR) 100 mg tabletIndicatio ns:Paroxysmal atrial flutter (HCC) Take 1 tablet (100 mg total) by mouth 2 (two) times a day 180 tablet 2 04/28/20 24 Active atorvastatin (LIPITOR) 40 mg tablet Take 1 tablet (40 mg total) by mouth daily 04/27/20 24 Active amitriptyline (ELAVIL) 25 mg tablet Take 1 tablet (25 mg total) by mouth nightly at bedtime 02/23/20 24 Active Xarelto 20 mg tablet TAKE 1 TABLET BY MOUTH EVERY DAY 90 tablet 1 10/03/19 25 Active rivaroxaban (Xarelto) 20 mg tablet Take 1 tablet (20 mg total) by mouth daily 90 tablet 1 03/31/20 24 025 Discontinued Active Problems Problem Noted Date Diagnosed Date Morbid (severe) obesity due to excess calories 0 08/03/2022 Pulmonary HTN 07/21/2021 Systolic murmur 01/16/2021 Neck mass 02/24/2019 Chest pain 01/31/2019 Abnormal stress test 01/10/2019 GERD (gastroesophageal reflux disease) 9 Chronic anticoagulation 07/05/2018 Paroxysmal atrial flutter 01/21/2018 Vasovagal syncope 08/25/2017 Symptomatic PVCs 06/10/2016 [...] Comments: LRS 03/17/2016 - Overweight Arthritis A-fib (HCC) Family History Medical History Relation Name Comments [...] on file Legal Sex Female 3:22 PM POWER AND RECOVERY SUPERVISOR Gender Identity Not on file Sexual Orientation Not on file Obstetrics History Last Filed Vital Signs Vital Sign Reading Time Taken Comments Blood Pressure 126/74 05/25/2024 12:56 PM POWER AND RECOVERY SUPERVISOR Pulse 64 05/25/2024 12:56 PM POWER AND RECOVERY SUPERVISOR Temperature 36.6 C (97.9 F) 11/11/2021 10:43 AM CDT Respiratory Rate 16 02/16/2023 9:10 AM CDT Oxygen Saturation 97% 05/25/2024 12:56 PM POWER AND RECOVERY SUPERVISOR Inhaled Oxygen Concentration - - Weight 98 kg (216 lb) 05/25/2024 12:56 PM POWER AND RECOVERY SUPERVISOR Height 160 cm (5' 3 ) 05/25/2024 12:56 PM POWER AND RECOVERY SUPERVISOR Body Mass Index 38.26 05/25/2024 12:56 PM POWER AND RECOVERY SUPERVISOR Plan of Treatment Health Maintenance Due Date [...] - Td or Tdap) 05/11/2022 05/11/2012, 05/06/2012 Lipid Panel 02/17/2024 02/16/2023, 07/16, 05/05/2021, Additional history exists Influenza Vaccine (Season Ended) 2025 03/18/2020, 03/09/2019, 03/14/2018, Additional history exists Pneumococcal vaccine 65+ Completed [...] Capillary blood 02/16/2023 9 :15 AM CDT Mrashall Velazquez MD POINT OF CARE TEST ORD ERABLES Final Result from Last 3 Months or Most Recently Relevant to Health Maintenance Insurance [employer] MEDICARE ADVANTAGE Member Subscriber Plan / Payer (Ef fective 2017-Present) Name:DENA ALDANA Relation to Subscriber:Self Name:Dena Aldana Payer ID:[id number] (NAIC) Type:[facility] Address: [place] [phone] [employer] MEDICARE ADVANTAGE Member Subscriber Plan / Payer (Ef fective 2021-Present) Name:Dena Aldana Relation to Subscriber:Self Name:Dena Aldana Payer ID:[id number] (NAIC) Type:[facility] Address: [place] [phone] [employer] MEDICARE ADVANTAGE Care Teams Weaving Machine Operator Relationship Specialty Start Date End Date Anup Ruelas MD PCP - General Family Medicine 09/08/22
--- OUTSIDE RECORDS SUMMARY | 2024-10-09 19:32 | XMS_ITS | Encounter Summary ---
Author Organization [facility] Healthcare Address [address] [place] [address] Care Team Providers Care Waistband Setter Name Role Phone Tom Case MD Primary Care Provider [phone] Reason for Visit * Diagnostic Imaging (Routine) - Closed Specialty Diagnoses / Procedures Referred By Contac t Referred To Contact Procedures Breast Imaging Screening Outside Reference Adriana Joseph MD PhD [address] [phone] [place] [address] Phone: tel: fax: Referral ID Status Reason Start Date Expiration Date Visits Re quested Visits Authorized [id number] Closed 10/27/2021 11/26/2022 1 1 Encounter Details Date Type Department Care Team (Late st Contact Info) Description 06/15/2018 Hospital Encounter [facility]) [address] [place] [address] Social History Tobacco Use Types Packs/Day Years Used Date Smoking Tobacco: Never Smokeless Tobacco: Never Alcohol Use Standard Drinks/Week Comments Yes 0 (1 standard drink = 0.6 oz pur e alcohol) rarely Comments Unknown Sex and Gender Information Value Date Recorded Sex Assigned at Not on file Legal Sex Female 3:22 PM NUCLEAR POWERPLANT MECHANIC HELPER Gender Identity Not on file Sexual Orientation Not on file documented as of this encounter Plan of Treatment Not on file documented as of this encounter Procedures Procedure Name Priority Date/Time Associated Diagnosis Comments BREAST IMAGING MG SCREENING OUTSIDE REFERENCE Routine 06/15/2018 12:00 AM NUCLEAR POWERPLANT MECHANIC HELPER documented in this encounter Results * Breast Imaging Screening Outside Reference (06/15/2018 12:00 AM NUCLEAR POWERPLANT MECHANIC HELPER) Impressions [facility] - 10/27/2021 10:34 AM CDT These images are for Reference purposes only and have not been reviewed by [facility] Radiology. There will be no report generated by a [facility] Radiologist. Narrative [facility] - 10/27/2021 10:34 AM CDT EXAMINATION: Images For Reference Purposes Only us Adriana Joseph MD PhD IMG MAMMO PROCEDURES Final Result [facility] documented in this encounter Visit Diagnoses Not on filedocumented in this encounter Care Teams Waistband Setter Relationship Specialty Start Date End Date Tom Case MD [address] [place] [address] PCP - General Internal Medicine 01/14/18 01/26/22 documented as of this encounter
--- OUTSIDE RECORDS SUMMARY | 2024-10-09 19:32 | XMS_ITS | Encounter Summary ---
Author Organization [facility] Healthcare Address [address] [place] [address] Care Team Providers Care Combat Control Manager Name Role Phone Penny Bernal MD Primary Care Provider + Reason for Visit * Diagnostic Imaging (Routine) - Closed Specialty Diagnoses / Procedures Referred By Contac t Referred To Contact Procedures Breast Imaging Screening Outside Reference Adriana Joseph MD PhD [address] [facility] [address] [phone] [place] [address] Phone: tel: fax: Referral ID Status Reason Start Date Expiration Date Visits Re quested Visits Authorized [id number] Closed 10/27/2021 11/26/2022 1 1 Encounter Details Date Type Department Care Team (Late st Contact Info) Description 06/03/2016 12:05 AM [facility] Hospital Encounter [facility]iology [facility] ([facility]) [address] [place] [address] Social History Tobacco Use Types Packs/Day Years Used Date Smoking Tobacco: Never Smokeless Tobacco: Never Alcohol Use Standard Drinks/Week Comments Yes 0 (1 standard drink = 0.6 oz pur e alcohol) rarely Comments Unknown Sex and Gender Information Value Date Recorded Sex Assigned at Not on file Legal Sex Female 3:22 PM COLORMAN Gender Identity Not on file Sexual Orientation Not on file documented as of this encounter Plan of Treatment Not on file documented as of this encounter Procedures Procedure Name Priority Date/Time Associated Diagnosis Comments BREAST IMAGING MG SCREENING OUTSIDE REFERENCE Routine 06/03/2016 12:05 AM COLORMAN documented in this encounter Results * Breast Imaging Screening Outside Reference (06/03/2016 12:05 AM COLORMAN) Impressions [facility] - 10/27/2021 10:35 AM CDT These images are for Reference purposes only and have not been reviewed by [facility] Radiology. There will be no report generated by a [facility] Radiologist. Narrative [facility] - 10/27/2021 10:35 AM CDT EXAMINATION: Images For Reference Purposes Only us Adriana Joseph MD PhD IMG MAMMO PROCEDURES Final Result [facility] documented in this encounter Visit Diagnoses Not on filedocumented in this encounter Care Teams Combat Control Manager Relationship Specialty Start Date End Date Penny Bernal MD [address] [place] [address] PCP - General 08/23/10 01/13/18 documented as of this encounter
--- OUTSIDE RECORDS SUMMARY | 2024-10-09 19:32 | XMS_ITS | Encounter Summary ---
Author Organization [facility] Healthcare Address [address] [place] [address] Care Team Providers Care Canine Service Teacher Name Role Phone Tom Case MD Primary Care Provider [phone] Reason for Visit * Diagnostic Imaging (Routine) - Closed Specialty Diagnoses / Procedures Referred By Contac t Referred To Contact Procedures Breast Imaging US Outside Reference Adriana Joseph MD PhD [address] [phone] [place] [address] Phone: tel: fax: Referral ID Status Reason Start Date Expiration Date Visits Re quested Visits Authorized [id number] Closed 10/27/2021 11/26/2022 1 1 Encounter Details Date Type Department Care Team (Late st Contact Info) Description 08/20/2020 Hospital Encounter [facility]) [address] [place] [address] Social History Tobacco Use Types Packs/Day Years Used Date Smoking Tobacco: Never Smokeless Tobacco: Never Alcohol Use Standard Drinks/Week Comments Yes 0 (1 standard drink = 0.6 oz pur e alcohol) rarely Comments Unknown Sex and Gender Information Value Date Recorded Sex Assigned at Not on file Legal Sex Female 3:22 PM PUBLIC HEALTH INSPECTOR Gender Identity Not on file Sexual Orientation Not on file documented as of this encounter Plan of Treatment Not on file documented as of this encounter Procedures Procedure Name Priority Date/Time Associated Diagnosis Comments BREAST IMAGING US OUTSIDE REFERENCE Routine 08/20/2020 12:00 AM PUBLIC HEALTH INSPECTOR documented in this encounter Results * Breast Imaging US Outside Reference (08/20/2020 12:00 AM PUBLIC HEALTH INSPECTOR) Impressions [facility] - 10/27/2021 10:33 AM CDT These images are for Reference purposes only and have not been reviewed by [facility] Radiology. There will be no report generated by a [facility] Radiologist. Narrative [facility] - 10/27/2021 10:33 AM CDT EXAMINATION: Images For Reference Purposes Only us Adriana Joseph MD PhD IMG MAMMO PROCEDURES Final Result [facility] documented in this encounter Visit Diagnoses Not on filedocumented in this encounter Care Teams Canine Service Teacher Relationship Specialty Start Date End Date Tom Case MD [address] [place] [address] PCP - General Internal Medicine 01/14/18 01/26/22 documented as of this encounter
--- OUTSIDE RECORDS SUMMARY | 2024-10-09 19:32 | XMS_ITS | Encounter Summary ---
Author Organization [facility] Healthcare Address [address] [place] [address] Care Team Providers Care Senior Systems Engineer Name Role Phone Tom Csae MD Primary Care Provider [phone] Reason for Visit * Diagnostic Imaging (Routine) - Closed Specialty Diagnoses / Procedures Referred By Contac t Referred To Contact Procedures Breast Imaging Screening Outside Reference Adriana Joseph MD PhD [address] [phone] [place] [address] Phone: tel: fax: Referral ID Status Reason Start Date Expiration Date Visits Re quested Visits Authorized [id number] Closed 10/27/2021 11/26/2022 1 1 Encounter Details Date Type Department Care Team (Late st Contact Info) Description 07/25/2020 Hospital Encounter [facility]iology [facility] [address] [place] [address] Social History Tobacco Use Types Packs/Day Years Used Date Smoking Tobacco: Never Smokeless Tobacco: Never Alcohol Use Standard Drinks/Week Comments Yes 0 (1 standard drink = 0.6 oz pur e alcohol) rarely Comments Unknown Sex and Gender Information Value Date Recorded Sex Assigned at Not on file Legal Sex Female 3:22 PM ENGINEERING PRODUCTION WORKER Gender Identity Not on file Sexual Orientation Not on file documented as of this encounter Plan of Treatment Not on file documented as of this encounter Procedures Procedure Name Priority Date/Time Associated Diagnosis Comments BREAST IMAGING MG SCREENING OUTSIDE REFERENCE Routine 07/25/2020 12:00 AM ENGINEERING PRODUCTION WORKER documented in this encounter Results * Breast Imaging Screening Outside Reference (07/25/2020 12:00 AM ENGINEERING PRODUCTION WORKER) Impressions [facility] - 10/27/2021 10:34 AM CDT These images are for Reference purposes only and have not been reviewed by [facility] Radiology. There will be no report generated by a [facility] Radiologist. Narrative [facility] - 10/27/2021 10:34 AM CDT EXAMINATION: Images For Reference Purposes Only us Adriana Joseph MD PhD IMG MAMMO PROCEDURES Final Result [facility] documented in this encounter Visit Diagnoses Not on filedocumented in this encounter Care Teams Senior Systems Engineer Relationship Specialty Start Date End Date Tom Case MD [address] [place] [address] PCP - General Internal Medicine 01/14/18 01/26/22 documented as of this encounter
--- OUTSIDE RECORDS SUMMARY | 2024-10-09 19:32 | XMS_ITS | Encounter Summary ---
Author Organization [facility] Healthcare Address [address] [place] [address] Care Team Providers Care Stave Mill Hand Name Role Phone Penny Bernal MD Primary Care Provider + Reason for Visit * Diagnostic Imaging (Routine) - Closed Specialty Diagnoses / Procedures Referred By Contac t Referred To Contact Procedures Breast Imaging Screening Outside Reference Adriana Joseph MD PhD [address] [facility] [address] [phone] [place] [address] Phone: tel: fax: Referral ID Status Reason Start Date Expiration Date Visits Re quested Visits Authorized [id number] Closed 10/27/2021 11/26/2022 1 1 Encounter Details Date Type Department Care Team (Late st Contact Info) Description 06/10/2017 Hospital Encounter [facility]iology [facility] [address] [place] [address] Social History Tobacco Use Types Packs/Day Years Used Date Smoking Tobacco: Never Smokeless Tobacco: Never Alcohol Use Standard Drinks/Week Comments Yes 0 (1 standard drink = 0.6 oz pur e alcohol) rarely Comments Unknown Sex and Gender Information Value Date Recorded Sex Assigned at Not on file Legal Sex Female 3:22 PM CAREER DEVELOPMENT DIRECTOR Gender Identity Not on file Sexual Orientation Not on file documented as of this encounter Plan of Treatment Not on file documented as of this encounter Procedures Procedure Name Priority Date/Time Associated Diagnosis Comments BREAST IMAGING MG SCREENING OUTSIDE REFERENCE Routine 06/10/2017 12:00 AM CAREER DEVELOPMENT DIRECTOR documented in this encounter Results * Breast Imaging Screening Outside Reference (06/10/2017 12:00 AM CAREER DEVELOPMENT DIRECTOR) Impressions [facility] - 10/27/2021 10:35 AM CDT These images are for Reference purposes only and have not been reviewed by [facility] Radiology. There will be no report generated by a [facility] Radiologist. Narrative RAD_M[facility]MO[facility] - 10/27/2021 10:35 AM CDT EXAMINATION: Images For Reference Purposes Only us Adriana Joseph MD PhD IMG MAMMO PROCEDURES Final Result [facility] documented in this encounter Visit Diagnoses Not on filedocumented in this encounter Care Teams Stave Mill Hand Relationship Specialty Start Date End Date Penny Bernal MD [address] [place] [address] PCP - General 08/23/10 01/13/18 documented as of this encounter
--- OUTSIDE RECORDS SUMMARY | 2024-10-09 19:32 | XMS_ITS | Encounter Summary ---
Author Organization [facility] Healthcare Address [address] [place] [address] Care Team Providers Care Delivery Clerk Name Role Phone Penny Bernal MD Primary Care Provider + Reason for Visit * Diagnostic Imaging (Routine) - Closed Specialty Diagnoses / Procedures Referred By Contac t Referred To Contact Procedures Breast Imaging Screening Outside Reference Adriana Joseph MD PhD [address] [phone] [place] [address] Phone: tel: fax: Referral ID Status Reason Start Date Expiration Date Visits Re quested Visits Authorized [id number] Closed 10/27/2021 11/26/2022 1 1 Encounter Details Date Type Department Care Team (Late st Contact Info) Description 06/03/2016 Hospital Encounter [facility]iology [facility] [address] [place] [address] Social History Tobacco Use Types Packs/Day Years Used Date Smoking Tobacco: Never Smokeless Tobacco: Never Alcohol Use Standard Drinks/Week Comments Yes 0 (1 standard drink = 0.6 oz pur e alcohol) rarely Comments Unknown Sex and Gender Information Value Date Recorded Sex Assigned at Not on file Legal Sex Female 3:22 PM TAFE REGISTRAR Gender Identity Not on file Sexual Orientation Not on file documented as of this encounter Plan of Treatment Not on file documented as of this encounter Procedures Procedure Name Priority Date/Time Associated Diagnosis Comments BREAST IMAGING MG SCREENING OUTSIDE REFERENCE Routine 06/03/2016 12:00 AM TAFE REGISTRAR documented in this encounter Results * Breast Imaging Screening Outside Reference (06/03/2016 12:00 AM TAFE REGISTRAR) Impressions [facility] - 10/27/2021 10:35 AM CDT These images are for Reference purposes only and have not been reviewed by [facility] Radiology. There will be no report generated by a [facility] Radiologist. Narrative RAD_M[facility]MO[facility] - 10/27/2021 10:35 AM CDT EXAMINATION: Images For Reference Purposes Only us Adriana Joseph MD PhD IMG MAMMO PROCEDURES Final Result [facility] documented in this encounter Visit Diagnoses Not on filedocumented in this encounter Care Teams Delivery Clerk Relationship Specialty Start Date End Date Penny Bernal MD [address] [place] [address] PCP - General 08/23/10 01/13/18 documented as of this encounter
--- OUTSIDE RECORDS SUMMARY | 2024-10-09 19:32 | XMS_ITS | Referral Summary ---
Author Organization [facility] [address] Address [address] [place] [address] Care Team Providers Care Plant Operator Control Room Operator Name Role Phone Anup Ruelas MD Primary Care Provider [phone] Allergies Active Allergy Reactions Criticality Noted Date Comments Cephalexin Nausea only Low Codeine Nausea only Low Dexlansoprazole Unknown 07/21/2021 Levofloxacin Nausea only Low Metronidazole Nausea only Low Esomeprazole Hives Medium 01/31/2019 Niacin Cough Low 07/09/2020 Pseudoephedrine Other (See comments) Low 07/09/2020 Medications bacillus-protea yi-xqfgrc-byqiw (DIGESTIVE ADVANTAGE INTENS BOW) 1 billion cell- 30,000 unit capsule take one daily 0 0 06/10/20 16 Active cholecalciferol (VITAMIN D3) 1,000 unit capsule take 1 by Oral route once 0 0 06/10/20 16 Active coenzyme Q10 (CO Q-10) 400 mg capsule take one daily 0 0 06/10/20 16 Active omega 5-lpk-adr-fish oil (FISH OIL) 300-1,000 mg capsule,delayed release(DR/EC) take 1 capsule by oral route 2 times every day 0 0 06/10/20 16 Active vitamin A-vitamin C-vit E-min tablet Take by mouth daily EYE PROMISE ([facility] [employer]) Active dicyclomine (BENTYL) 20 mg tablet Take [...] on file Legal Sex Female 3:22 PM BOMB SQUAD COMMANDER Gender Identity Not on file Sexual Orientation Not on file Last Filed Vital Signs Vital Sign Reading Time Taken Comments Blood Pressure 126/74 05/25/2024 12:56 PM BOMB SQUAD COMMANDER Pulse 64 05/25/2024 12:56 PM BOMB SQUAD COMMANDER Temperature 36.6 C (97.9 F) 11/11/2021 10:43 AM CDT Respiratory Rate 16 02/16/2023 9:10 AM CDT Oxygen Saturation 97% 05/25/2024 12:56 PM BOMB SQUAD COMMANDER Inhaled Oxygen Concentration - - Weight 98 kg (216 lb) 05/25/2024 12:56 PM BOMB SQUAD COMMANDER Height 160 cm (5' 3 ) 05/25/2024 12:56 PM BOMB SQUAD COMMANDER Body Mass Index 38.26 05/25/2024 12:56 PM BOMB SQUAD COMMANDER Plan of Treatment Not on file Procedures [...] to Health Maintenance Insurance UHC MEDICARE ADVANTAGE [facility] MEDICARE Address: [address] [address] [facility] MEDICARE ADVANTAGE [facility] MEDIC[facility] Address: [address] [address] [place] [address] UHC MEDICARE ADVANTAGE [facility] MEDICARE Address: [address] [address] [place] [address] Care Teams Plant Operator Control Room Operator Relationship Specialty Start Date End Date Anup Ruelas MD PCP - General Family Medicine 09/08/22
[2024-10-09 19:55] VITALS: BP 188/82; PULSE 68; RESP 17; TEMP 36.7; O2SAT 96
[2024-10-09 23:45] VITALS: PULSE 63; RESP 15; TEMP 36.5; O2SAT 97
[2024-10-10] VITALS (8 sets, daily range): BP systolic 133–190; BP diastolic 68–84; PULSE 60–71; RESP 12–18; TEMP 36.5; O2SAT 96–98
--- NOTE | 2024-10-10 00:01 | PC.NURSE ---
Pt does not want an IV or blood work until a Physician evaluates her.
--- OUTSIDE RECORDS SUMMARY | 2024-10-10 00:02 | XMS_ITS | Encounter Summary ---
Author Organization [facility] Address [address] [place] [address] Care Team Providers Care Salesforce Consultant Name Role Phone Penny Bernal MD Primary Care Provider + Tom Case MD Primary Care Provider [phone] Navin Barger MD Primary Care Provider [phone] Aunp Ruelas MD Primary Care Provider + [phone] Encounter Details Date Type Department Care Team (Late st Contact Info) Description 03/30/2012 Orders Only [facility] Health Information Management [address] [place] [address] Scanning, Provider Social History Tobacco Use Types Packs/Day Years Used Date Smoking Tobacco: Never Assessed Comments Unknown Sex and Gender Information Value Date Recorded Sex Assigned at Not on file Legal Sex Female 3:22 PM STRATEGIC INSIGHTS LEAD Gender Identity Not on file Sexual Orientation [...] on filedocumented in this encounter Care Teams Salesforce Consultant Relationship Specialty Start Date End Date Penny Bernal MD [address] [place] [address] PCP - General 08/23/10 01/13/18 Tom Case MD [address] [facility] [address] [facility] [address] [place] [address] PCP - General Internal Medicine 01/14/18 01/26/22 Navin Barger MD [address] [employer] [address] PCP - General Family Medicine 01/27/22 09/07/22 Anup Ruelas MD [facility] [address] [employer] [address] PCP - General Family Medicine 09/08/22 documented as of this encounter
--- OUTSIDE RECORDS SUMMARY | 2024-10-10 00:02 | XMS_ITS | Clinical Summary ---
Author Organization [facility] [address] Address [address] [place] [address] Care Team Providers Care Bone Density Technician Name Role Phone Anup Ruelas MD Primary Care Provider [phone] Allergies Active Allergy Reactions Criticality Noted Date Comments Cephalexin Nausea only Low Codeine Nausea only Low Dexlansoprazole Unknown 07/21/2021 Levofloxacin Nausea only Low Metronidazole Nausea only Low Esomeprazole Hives Medium 01/31/2019 Niacin Cough Low 07/09/2020 Pseudoephedrine Other (See comments) Low 07/09/2020 Medications bacillus-protea sa-dgvyaq-vaahr (DIGESTIVE ADVANTAGE INTENS BOW) 1 billion cell- 30,000 unit capsule take one daily 0 0 06/10/20 16 Active cholecalciferol (VITAMIN D3) 1,000 unit capsule take 1 by Oral route once 0 0 06/10/20 16 Active coenzyme Q10 (CO Q-10) 400 mg capsule take one daily 0 0 06/10/20 16 Active omega 9-uiz-ibo-fish oil (FISH OIL) 300-1,000 mg capsule,delayed release(DR/EC) take 1 capsule by oral route 2 times every day 0 0 06/10/20 16 Active vitamin A-vitamin C-vit E-min tablet Take by mouth daily EYE PROMISE ([facility] [employer]) Active dicyclomine (BENTYL) 20 mg tablet Take [...] on file Legal Sex Female 3:22 PM OUTSIDE PLANT TECHNICIAN Gender Identity Not on file Sexual Orientation Not on file Obstetrics History Last Filed Vital Signs Vital Sign Reading Time Taken Comments Blood Pressure 126/74 05/25/2024 12:56 PM OUTSIDE PLANT TECHNICIAN Pulse 64 05/25/2024 12:56 PM OUTSIDE PLANT TECHNICIAN Temperature 36.6 C (97.9 F) 11/11/2021 10:43 AM CDT Respiratory Rate 16 02/16/2023 9:10 AM CDT Oxygen Saturation 97% 05/25/2024 12:56 PM OUTSIDE PLANT TECHNICIAN Inhaled Oxygen Concentration - - Weight 98 kg (216 lb) 05/25/2024 12:56 PM OUTSIDE PLANT TECHNICIAN Height 160 cm (5' 3 ) 05/25/2024 12:56 PM OUTSIDE PLANT TECHNICIAN Body Mass Index 38.26 05/25/2024 12:56 PM OUTSIDE PLANT TECHNICIAN Plan of Treatment Health Maintenance Due Date [...] to Health Maintenance Insurance UHC MEDICARE ADVANTAGE [facility] MEDIC[facility] Address: [place] [id number] UHC MEDICARE ADVANTAGE [facility] MEDICARE Address: [place] [id number] UHC MEDICARE ADVANTAGE Care Teams Bone Density Technician Relationship Specialty Start Date End Date Anup Ruelas MD PCP - General Family Medicine 09/08/22
--- OUTSIDE RECORDS SUMMARY | 2024-10-10 00:02 | XMS_ITS | Encounter Summary ---
Author Organization [facility] Healthcare Address [address] [place] [address] Care Team Providers Care Learning Specialist Name Role Phone Penny Bernal MD Primary Care Provider + Reason for Visit * Diagnostic Imaging (Routine) - Closed Specialty Diagnoses / Procedures Referred By Contac t Referred To Contact Procedures Breast Imaging Screening Outside Reference Adriana Joseph MD PhD [address] [phone] [place] [address] Phone: tel: fax: Referral ID Status Reason Start Date Expiration Date Visits Re quested Visits Authorized [id number] Closed 10/27/2021 11/26/2022 1 1 Encounter Details Date Type Department Care Team (Late st Contact Info) Description 06/03/2016 Hospital Encounter [facility] [address] [place] [address] Social History Tobacco Use Types Packs/Day Years Used Date Smoking Tobacco: Never Smokeless Tobacco: Never Alcohol Use Standard Drinks/Week Comments Yes 0 (1 standard drink = 0.6 oz pur e alcohol) rarely Comments Unknown Sex and Gender Information Value Date Recorded Sex Assigned at Not on file Legal Sex Female 3:22 PM ROOFER METAL Gender Identity Not on file Sexual Orientation Not on file documented as of this encounter Plan of Treatment Not on file documented as of this encounter Procedures Procedure Name Priority Date/Time Associated Diagnosis Comments BREAST IMAGING MG SCREENING OUTSIDE REFERENCE Routine 06/03/2016 12:00 AM ROOFER METAL documented in this encounter Results * Breast Imaging Screening Outside Reference (06/03/2016 12:00 AM ROOFER METAL) Impressions [facility] - 10/27/2021 10:35 AM CDT [...] on filedocumented in this encounter Care Teams Learning Specialist Relationship Specialty Start Date End Date Penny Bernal MD [address] [place] [address] PCP - General 08/23/10 01/13/18 documented as of this encounter
--- OUTSIDE RECORDS SUMMARY | 2024-10-10 00:02 | XMS_ITS | Encounter Summary ---
Author Organization [facility] Healthcare Address [address] [place] [address] Care Team Providers Care Scheduler Maintenance Name Role Phone Tom Case MD Primary Care Provider [phone] Reason for Visit * Diagnostic Imaging (Routine) - Closed Specialty Diagnoses / Procedures Referred By Contac t Referred To Contact Procedures Breast Imaging Screening Outside Reference Adriana Joseph MD PhD [address] [phone] [place] [address] Phone: tel: fax: Referral ID Status Reason Start Date Expiration Date Visits Re quested Visits Authorized [id number] Closed 10/27/2021 11/26/2022 1 1 Encounter Details Date Type Department Care Team (Late st Contact Info) Description 07/20/2019 Hospital Encounter [facility] Radiology [facility]) [address] [place] [address] Social History Tobacco Use Types Packs/Day Years Used Date Smoking Tobacco: Never Smokeless Tobacco: Never Alcohol Use Standard Drinks/Week Comments Yes 0 (1 standard drink = 0.6 oz pur e alcohol) rarely Comments Unknown Sex and Gender Information Value Date Recorded Sex Assigned at Not on file Legal Sex Female 3:22 PM ECONOMICS TEACHER Gender Identity Not on file Sexual Orientation Not on file documented as of this encounter Plan of Treatment Not on file documented as of this encounter Procedures Procedure Name Priority Date/Time Associated Diagnosis Comments BREAST IMAGING MG SCREENING OUTSIDE REFERENCE Routine 07/20/2019 12:00 AM ECONOMICS TEACHER documented in this encounter Results * Breast Imaging Screening Outside Reference (07/20/2019 12:00 AM ECONOMICS TEACHER) Impressions [facility] - 10/27/2021 10:34 AM CDT These images are for Reference purposes only and have not been reviewed by [facility] Radiology. There will be no report generated by a [facility] Radiologist. Narrative [facility] - 10/27/2021 10:34 AM CDT EXAMINATION: Images For Reference Purposes Only us Adriana Joseph MD PhD IMG MAMMO PROCEDURES Final Result [facility] documented in this encounter Visit Diagnoses Not on filedocumented in this encounter Care Teams Scheduler Maintenance Relationship Specialty Start Date End Date Tom Case MD [address] [place] [address] PCP - General Internal Medicine 01/14/18 01/26/22 documented as of this encounter
--- OUTSIDE RECORDS SUMMARY | 2024-10-10 00:02 | XMS_ITS | Encounter Summary ---
Author Organization [facility] Healthcare Address [address] [place] [address] Care Team Providers Care Trucking Supervisor Name Role Phone Tom Case MD Primary Care Provider [phone] Reason for Visit * Diagnostic Imaging (Routine) - Closed Specialty Diagnoses / Procedures Referred By Contac t Referred To Contact Procedures Breast Imaging US Outside Reference Adriana Joseph MD PhD [address] [phone] [place] [address] Phone: tel: fax: Referral ID Status Reason Start Date Expiration Date Visits Re quested Visits Authorized [id number] Closed 10/27/2021 11/26/2022 1 1 Encounter Details Date Type Department Care Team (Late st Contact Info) Description 08/20/2020 Hospital Encounter [facility]iology [facility] [address] [place] [address] Social History Tobacco Use Types Packs/Day Years Used Date Smoking Tobacco: Never Smokeless Tobacco: Never Alcohol Use Standard Drinks/Week Comments Yes 0 (1 standard drink = 0.6 oz pur e alcohol) rarely Comments Unknown Sex and Gender Information Value Date Recorded Sex Assigned at Not on file Legal Sex Female 3:22 PM INBOUND SALES CONSULTANT Gender Identity Not on file Sexual Orientation Not on file documented as of this encounter Plan of Treatment Not on file documented as of this encounter Procedures Procedure Name Priority Date/Time Associated Diagnosis Comments BREAST IMAGING US OUTSIDE REFERENCE Routine 08/20/2020 12:00 AM INBOUND SALES CONSULTANT documented in this encounter Results * Breast Imaging US Outside Reference (08/20/2020 12:00 AM INBOUND SALES CONSULTANT) Impressions [facility] - 10/27/2021 10:33 AM CDT These images are for Reference purposes only and have not been reviewed by [facility] Radiology. There will be no report generated by a [facility] Radiologist. Narrative [facility]_M[facility] - 10/27/2021 10:33 AM CDT EXAMINATION: Images For Reference Purposes Only us Adriana Joseph MD PhD IMG MAMMO PROCEDURES Final Result [facility] documented in this encounter Visit Diagnoses Not on filedocumented in this encounter Care Teams Trucking Supervisor Relationship Specialty Start Date End Date Tom Case MD [address] [place] [address] PCP - General Internal Medicine 01/14/18 01/26/22 documented as of this encounter
--- OUTSIDE RECORDS SUMMARY | 2024-10-10 00:02 | XMS_ITS | Encounter Summary ---
Author Organization [facility] Healthcare Address [address] [place] [address] Care Team Providers Care Edge Inker Heels Name Role Phone Tom Case MD Primary Care Provider [phone] Reason for Visit * Diagnostic Imaging (Routine) - Closed Specialty Diagnoses / Procedures Referred By Contac t Referred To Contact Procedures Breast Imaging Screening Outside Reference Adriana Joseph MD PhD [address] [phone] [place] [address] Phone: tel: fax: Referral ID Status Reason Start Date Expiration Date Visits Re quested Visits Authorized [id number] Closed 10/27/2021 11/26/2022 1 1 Encounter Details Date Type Department Care Team (Late st Contact Info) Description 07/25/2020 Hospital Encounter [facility] Radiology [facility] [address] [place] [address] Social History Tobacco Use Types Packs/Day Years Used Date Smoking Tobacco: Never Smokeless Tobacco: Never Alcohol Use Standard Drinks/Week Comments Yes 0 (1 standard drink = 0.6 oz pur e alcohol) rarely Comments Unknown Sex and Gender Information Value Date Recorded Sex Assigned at Not on file Legal Sex Female 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 MACHINE OPERATOR Gender Identity Not on file Sexual Orientation Not on file documented as of this encounter Plan of Treatment Not on file documented as of this encounter Procedures Procedure Name Priority Date/Time Associated Diagnosis Comments BREAST IMAGING MG SCREENING OUTSIDE REFERENCE Routine 07/25/2020 12:00 AM MASKING MACHINE OPERATOR documented in this encounter Results * Breast Imaging Screening Outside Reference (07/25/2020 12:00 AM MASKING MACHINE OPERATOR) Impressions [facility] - 10/27/2021 10:34 AM CDT These images are for Reference purposes only and have not been reviewed by [facility] Radiology. There will be no report generated by a [facility] Radiologist. Narrative [facility] - 10/27/2021 10:34 AM CDT EXAMINATION: Images For Reference Purposes Only us Adriana Joseph MD PhD IMG MAMMO PROCEDURES Final Result [facility] documented in this encounter Visit Diagnoses Not on filedocumented in this encounter Care Teams Edge Inker Heels Relationship Specialty Start Date End Date Tom Case MD [address] [place] [address] PCP - General Internal Medicine 01/14/18 01/26/22 documented as of this encounter
--- OUTSIDE RECORDS SUMMARY | 2024-10-10 00:02 | XMS_ITS | Referral Summary ---
Author Organization [facility] [address] Address [address] [place] [address] Care Team Providers Care Pack Room Operator Name Role Phone Anup Ruelas MD Primary Care Provider [phone] Allergies Active Allergy Reactions Criticality Noted Date Comments Cephalexin Nausea only Low Codeine Nausea only Low Dexlansoprazole Unknown 07/21/2021 Levofloxacin Nausea only Low Metronidazole Nausea only Low Esomeprazole Hives Medium 01/31/2019 Niacin Cough Low 07/09/2020 Pseudoephedrine Other (See comments) Low 07/09/2020 Medications bacillus-protea cc-csqgmr-fohno (DIGESTIVE ADVANTAGE INTENS BOW) 1 billion cell- 30,000 unit capsule take one daily 0 0 06/10/20 16 Active cholecalciferol (VITAMIN D3) 1,000 unit capsule take 1 by Oral route once 0 0 06/10/20 16 Active coenzyme Q10 (CO Q-10) 400 mg capsule take one daily 0 0 06/10/20 16 Active omega 3-cww-ggg-fish oil (FISH OIL) 300-1,000 mg capsule,delayed release(DR/EC) take 1 capsule by oral route 2 times every day 0 0 06/10/20 16 Active vitamin A-vitamin C-vit E-min tablet Take by mouth daily EYE PROMISE ([facility] [place]) Active dicyclomine (BENTYL) 20 mg tablet Take [...] on file Legal Sex Female 3:22 PM HOGSHEAD OPENER Gender Identity Not on file Sexual Orientation Not on file Last Filed Vital Signs Vital Sign Reading Time Taken Comments Blood Pressure 126/74 05/25/2024 12:56 PM HOGSHEAD OPENER Pulse 64 05/25/2024 12:56 PM HOGSHEAD OPENER Temperature 36.6 C (97.9 F) 11/11/2021 10:43 AM CDT Respiratory Rate 16 02/16/2023 9:10 AM CDT Oxygen Saturation 97% 05/25/2024 12:56 PM HOGSHEAD OPENER Inhaled Oxygen Concentration - - Weight 98 kg (216 lb) 05/25/2024 12:56 PM HOGSHEAD OPENER Height 160 cm (5' 3 ) 05/25/2024 12:56 PM HOGSHEAD OPENER Body Mass Index 38.26 05/25/2024 12:56 PM HOGSHEAD OPENER Plan of Treatment Not on file Procedures [...] to Health Maintenance Insurance [employer] [facility] Address: [address] [address] [facility] MEDICARE [facility] Address: [address] [address] [place] [address] [employer] [facility] Address: [address] [address] [place] [address] Care Teams Pack Room Operator Relationship Specialty Start Date End Date Anup Ruelas MD PCP - General Family Medicine 09/08/22
--- OUTSIDE RECORDS SUMMARY | 2024-10-10 00:02 | XMS_ITS | Encounter Summary ---
Author Organization [facility] Healthcare Address [address] [place] [address] Care Team Providers Care Credit Reporter Name Role Phone Tom Case MD Primary Care Provider [phone] Reason for Visit * Diagnostic Imaging (Routine) - Closed Specialty Diagnoses / Procedures Referred By Contac t Referred To Contact Procedures Breast Imaging Diagnostic Outside Reference Adriana Joseph MD PhD [address] [facility] [address] [phone] [place] [address] Phone: tel: fax: Referral ID Status Reason Start Date Expiration Date Visits Re quested Visits Authorized [id number] Closed 10/27/2021 11/26/2022 1 1 Encounter Details Date Type Department Care Team (Late st Contact Info) Description 08/20/2020 12:05 AM CPAS Hospital Encounter [facility] Radiology [facility]) [address] [place] [address] Social History Tobacco Use Types Packs/Day Years Used Date Smoking Tobacco: Never Smokeless Tobacco: Never Alcohol Use Standard Drinks/Week Comments Yes 0 (1 standard drink = 0.6 oz pur e alcohol) rarely Comments Unknown Sex and Gender Information Value Date Recorded Sex Assigned at Not on file Legal Sex Female 3:22 PM CPAS Gender Identity Not on file Sexual Orientation Not on file documented as of this encounter Plan of Treatment Not on file documented as of this encounter Procedures Procedure Name Priority Date/Time Associated Diagnosis Comments BREAST IMAGING MG DIAGNOSTIC OUTSIDE REFERENCE Routine 08/20/2020 12:05 AM CPAS documented in this encounter Results * Breast Imaging Diagnostic Outside Reference (08/20/2020 12:05 AM CPAS) Impressions [facility] - 10/27/2021 10:35 AM CDT These images are for Reference purposes only and have not been reviewed by [facility] Radiology. There will be no report generated by a [facility] Radiologist. Narrative RAD_M[facility]MO[facility] - 10/27/2021 10:35 AM CDT EXAMINATION: Images For Reference Purposes Only us Adriana Joseph MD PhD IMG MAMMO PROCEDURES Final Result [facility] documented in this encounter Visit Diagnoses Not on filedocumented in this encounter Care Teams Credit Reporter Relationship Specialty Start Date End Date Tom Case MD [address] [place], [place] [id number] PCP - General Internal Medicine 01/14/18 01/26/22 documented as of this encounter
--- OUTSIDE RECORDS SUMMARY | 2024-10-10 00:02 | XMS_ITS | Encounter Summary ---
Author Organization [facility] Healthcare Address [address] [place] [address] Care Team Providers Care Shuttle Preparation Supervisor Name Role Phone Penny Bernal MD Primary Care Provider + Reason for Visit * Diagnostic Imaging (Routine) - Closed Specialty Diagnoses / Procedures Referred By Contac t Referred To Contact Procedures Breast Imaging Screening Outside Reference Adriana Joseph MD PhD [address] [facility] [address] [phone] [place] [address] Phone: tel: fax: Referral ID Status Reason Start Date Expiration Date Visits Re quested Visits Authorized [id number] Closed 10/27/2021 11/26/2022 1 1 Encounter Details Date Type Department Care Team (Late st Contact Info) Description 06/03/2016 12:05 AM STUDENT LOAN COUNSELOR Hospital Encounter [facility]iology [facility] ([facility]) [address] [place] [address] Social History Tobacco Use Types Packs/Day Years Used Date Smoking Tobacco: Never Smokeless Tobacco: Never Alcohol Use Standard Drinks/Week Comments Yes 0 (1 standard drink = 0.6 oz pur e alcohol) rarely Comments Unknown Sex and Gender Information Value Date Recorded Sex Assigned at Not on file Legal Sex Female 3:22 PM STUDENT LOAN COUNSELOR Gender Identity Not on file Sexual Orientation Not on file documented as of this encounter Plan of Treatment Not on file documented as of this encounter Procedures Procedure Name Priority Date/Time Associated Diagnosis Comments BREAST IMAGING MG SCREENING OUTSIDE REFERENCE Routine 06/03/2016 12:05 AM STUDENT LOAN COUNSELOR documented in this encounter Results * Breast Imaging Screening Outside Reference (06/03/2016 12:05 AM STUDENT LOAN COUNSELOR) Impressions [facility] - 10/27/2021 10:35 AM CDT These images are for Reference purposes only and have not been reviewed by [facility] Radiology. There will be no report generated by a [facility] Radiologist. Narrative RAD_MAMMO[facility] - 10/27/2021 10:35 AM CDT EXAMINATION: Images For Reference Purposes Only us Adriana Joseph MD PhD IMG MAMMO PROCEDURES Final Result [facility] documented in this encounter Visit Diagnoses Not on filedocumented in this encounter Care Teams Shuttle Preparation Supervisor Relationship Specialty Start Date End Date Penny Bernal MD [address] [place] [address] PCP - General 08/23/10 01/13/18 documented as of this encounter
--- OUTSIDE RECORDS SUMMARY | 2024-10-10 00:02 | XMS_ITS | Encounter Summary ---
Author Organization [facility] Healthcare Address [address] [place] [address] Care Team Providers Care Rental Management Trainee Name Role Phone Penny Bernal MD Primary Care Provider + Reason for Visit * Diagnostic Imaging (Routine) - Closed Specialty Diagnoses / Procedures Referred By Contac t Referred To Contact Procedures Breast Imaging Screening Outside Reference Adriana Joseph MD PhD [address] [facility] [address] [phone] [place] [address] Phone: tel: fax: Referral ID Status Reason Start Date Expiration Date Visits Re quested Visits Authorized [id number] Closed 10/27/2021 11/26/2022 1 1 Encounter Details Date Type Department Care Team (Late st Contact Info) Description 06/10/2017 Hospital Encounter [facility]iology [facility] [address] [place] [phone] Social History Tobacco Use Types Packs/Day Years Used Date Smoking Tobacco: Never Smokeless Tobacco: Never Alcohol Use Standard Drinks/Week Comments Yes 0 (1 standard drink = 0.6 oz pur e alcohol) rarely Comments Unknown Sex and Gender Information Value Date Recorded Sex Assigned at Not on file Legal Sex Female 3:22 PM ACCOUNT SUPPORT MANAGER Gender Identity Not on file Sexual Orientation Not on file documented as of this encounter Plan of Treatment Not on file documented as of this encounter Procedures Procedure Name Priority Date/Time Associated Diagnosis Comments BREAST IMAGING MG SCREENING OUTSIDE REFERENCE Routine 06/10/2017 12:00 AM ACCOUNT SUPPORT MANAGER documented in this encounter Results * Breast Imaging Screening Outside Reference (06/10/2017 12:00 AM ACCOUNT SUPPORT MANAGER) Impressions [facility] - 10/27/2021 10:35 AM CDT These images are for Reference purposes only and have not been reviewed by [facility] Radiology. There will be no report generated by a [facility] Radiologist. Narrative RAD_M[facility] - 10/27/2021 10:35 AM CDT EXAMINATION: Images For Reference Purposes Only us Adriana Joseph MD PhD IMG MAMMO PROCEDURES Final Result [facility] documented in this encounter Visit Diagnoses Not on filedocumented in this encounter Care Teams Rental Management Trainee Relationship Specialty Start Date End Date Penny Bernal MD [address] [place] [address] PCP - General 08/23/10 01/13/18 documented as of this encounter
--- OUTSIDE RECORDS SUMMARY | 2024-10-10 00:02 | XMS_ITS | Encounter Summary ---
Author Organization [facility] Healthcare Address [address] [place] [address] Care Team Providers Care Hash Slinger Name Role Phone Tom Case MD Primary Care Provider [phone] Reason for Visit * Diagnostic Imaging (Routine) - Closed Specialty Diagnoses / Procedures Referred By Contac t Referred To Contact Procedures Breast Imaging Screening Outside Reference Adriana Joseph MD PhD [address] [phone] [place] [address] Phone: tel: fax: Referral ID Status Reason Start Date Expiration Date Visits Re quested Visits Authorized [id number] Closed 10/27/2021 11/26/2022 1 1 Encounter Details Date Type Department Care Team (Late st Contact Info) Description 06/15/2018 Hospital Encounter [facility]iology [facility] [address] [place] [id number] Social History Tobacco Use Types Packs/Day Years Used Date Smoking Tobacco: Never Smokeless Tobacco: Never Alcohol Use Standard Drinks/Week Comments Yes 0 (1 standard drink = 0.6 oz pur e alcohol) rarely Comments Unknown Sex and Gender Information Value Date Recorded Sex Assigned at Not on file Legal Sex Female 3:22 PM GLOST TILE SORTER Gender Identity Not on file Sexual Orientation Not on file documented as of this encounter Plan of Treatment Not on file documented as of this encounter Procedures Procedure Name Priority Date/Time Associated Diagnosis Comments BREAST IMAGING MG SCREENING OUTSIDE REFERENCE Routine 06/15/2018 12:00 AM GLOST TILE SORTER documented in this encounter Results * Breast Imaging Screening Outside Reference (06/15/2018 12:00 AM GLOST TILE SORTER) Impressions [facility] - 10/27/2021 10:34 AM CDT These images are for Reference purposes only and have not been reviewed by [facility] Radiology. There will be no report generated by a [facility] Radiologist. Narrative RAD_M[facility]MO[facility] - 10/27/2021 10:34 AM CDT EXAMINATION: Images For Reference Purposes Only us Adriana Joseph MD PhD IMG MAMMO PROCEDURES Final Result [facility] documented in this encounter Visit Diagnoses Not on filedocumented in this encounter Care Teams Hash Slinger Relationship Specialty Start Date End Date Tom Case MD [address] [place] [address] PCP - General Internal Medicine 01/14/18 01/26/22 documented as of this encounter
--- NOTE | 2024-10-10 00:10 | ECG_ITS ---
Test Date: 2024-10-10 00:44:26 Measurements Intervals [place] Rate: 58 P: -30 [place]: 161 QRS: 0 QRSD: 86 T: 6 QT: 419 QTc: 414 Interpretive Statements SINUS BRADYCARDIA LEFT VENTRICULAR HYPERTROPHY BORDERLINE ST-T WAVE ABNORMALITY- ANTEROLAT/INF LEADS BASELINE ARTIFACT- I, II, III, AVR, AVL, AVF, V2, V4 BORDERLINE ECG No previous ECG available for comparison Electronically Signed On 10-10-2024 06:14:30 CDT by Robby Thomas D.O.
--- NOTE | 2024-10-10 01:29 | ED_ITS ---
HPI - Back Pain/Injury General Chief Complaint: Back Pain/Injury <ROMELIA Mix Last Filed: 10/10/24 03:29> Stated Complaint: back pain radiates to front, right arm pain,nausea <ROMELIA Mix Last Filed: 10/10/24 03:29> Time Seen by Provider: 10/09/24 23:41 <ROMELIA Mix Last Filed: 10/10/24 03:29> Source: patient <ROMELIA Mix Last Filed: 10/10/24 03:29> Mode of arrival: ambulatory <ROMELIA Mix Last Filed: 10/10/24 03:29> Limitations: no limitations <ROMELIA Mix Last Filed: 10/10/24 03:29> History of Present Illness HPI Narrative: Patient is an 84-year-old female, with pmh of afib on xarelto, who presents the ED with report of right upper back pain. Patient reports pain has been constant since Wednesday. Radiates around her right-sided abdomen/chest, into her right arm. Patient denies history of similar pain. She attempted to take a tramadol last night but denied improvement of the pain. Denies worsening with movement, exertion. Pain is aggravated with taking a deep breath and she has been feeling increasingly short of breath. Patient denies recent cough or cold symptoms. Denies heavy lifting or strenuous activity. Denies pain or swelling in legs. <ROMELIA Mix Last Filed: 10/10/24 03:29> Related Data Home Medications: Home Medications ?Medication ?Instructions ?Recorded ?Confirmed ?Last Taken ?Type coenzyme Q10 400 mg capsule (Co 400 mg PO DAILY 06/19/19 08/01/24 1 Day Ago History Q-10) ~04/14/22 rivaroxaban 20 mg tablet (Xarelto) 20 mg PO QPM 06/19/19 08/01/24 1 Day Ago History ~04/14/22 cholecalciferol (vitamin D3) 50 50 mcg PO DAILY 02/11/21 08/01/24 1 Day Ago History mcg (2,000 unit) tablet ~04/14/22 Saccharomyces boulardii 250 mg 5,000 mmu cells PO DAILY 08/06/22 08/01/24 Unknown History capsule (Digest Probiotic (S.boulardii)) losartan 25 mg tablet 25 mg PO DAILY 08/06/22 08/01/24 Unknown History metoprolol tartrate 75 mg tablet 100 mg PO Q12H 01/12/24 08/01/24 Unknown History <Tammy Mayen PA-C - Last Filed: 10/10/24 03:29> Allergies/Adverse Reactions: Allergies Allergy/AdvReac Type Severity Reaction Status Date / Time No Known Allergies Allergy Verified 10/09/24 19:31 <Tammy Mayen PA-C - Last Filed: 10/10/24 03:29> Review of Systems 2 Review of Systems: All systems reviewed & are unremarkable except as noted in HPI. <Tammy Mayen PA-C - Last Filed: 10/10/24 03:29> All systems reviewed & are unremarkable except as noted in HPI and below < Tammy Mayen PA-C - Last Filed: 10/10/24 03:29> [facility] Past Medical History Medical History: Medical History Elevated glucose BMI 35.0-35.9,adult Sigmoid diverticulitis Atrial fibrillation Abnormal urine Encounter to establish care Irritable bowel syndrome with diarrhea Benign essential hypertension Gastroesophageal reflux disease without esophagitis Mixed hyperlipidemia Paroxysmal atrial flutter <Tammy Mayen PA-C - Last Filed: 10/10/24 03:29> Surgical History Surgical History: Surgical History History of hysterectomy History of knee surgery History of cholecystectomy <Tammy Mayen PA-C - Last Filed: 10/10/24 03:29> Family History Family History: Family History Sibling Family history of malignant neoplasm of breast in first degree relative Family history of heart disease in male family member before age 55 Breast cancer Mother Family history of heart disease in male family member before age 55 Diabetes mellitus Pacemaker A-fib CHF (congestive heart failure) Grandparent Cancer Father Arthritis A-fib Sibling Diabetes mellitus A-fib Other Cerebrovascular accident Family history of arthritis Family history of atrial fibrillation Family history of cardiovascular disease Family history of chronic obstructive pulmonary disease Family history of congestive heart failure Family history of malignant neoplasm of male breast Hypertension <Tammy Mayen PA-C - Last Filed: 10/10/24 03:29> Social History Social History: Social History Smoking status: Never smoker Second hand tobacco smoke exposure: Yes Alcohol intake: current Alcohol use details: rarely Substance use: never Substance use type: does not use Do You Feel Safe in your Home?: Yes Lack of Transportation: No Lack of Food: Never True Current Housing: I Have Housing Concerned About Future Housing: No Difficulty Paying Gas/Electric Bills: No Difficulty Paying for Meds: No Currently Unemployed: No Education: High School Diploma/GED Difficulty w/ Childcare or Family Care: No Living arrangements: with family Occupation/Education: retired Additional occupation/education comments: office work. Gender identity (if verbalized by the patient): Female Spiritual care concerns: No <Tammy Mayen PA-C - Last Filed: 10/10/24 03:29> Exam 2 Narrative: GENERAL: Elderly but well appearing, obese with BMI of 35.0, non-toxic, in no acute distress. HEAD: Normocephalic, atraumatic. RESPIRATORY: Airway patent, respirations nonlabored. Clear to auscultation bilaterally, no rales, rhonchi, wheezing. No significant focal lung sounds. CARDIOVASCULAR: Regular rate and rhythm without murmurs, rubs, or gallops. ABDOMINAL: Soft, no significant tenderness throughout abdomen, nondistended. Normoactive BS. MUSCULOSKELETAL: Moves all extremities. No gross deformities. No appreciable reproducible tenderness throughout R scapular region, midline thoracic spine, RUE. Sensation intact throughout right upper extremity. Full range of motion of right shoulder. No chest wall tenderness to palpation. No significant peripheral edema. No calf tenderness. SKIN: Warm, dry, normal color. NEURO: A&O X3. Speech clear. No ataxic movements. PSYCHIATRIC: Appropriate mood and affect. Normal interaction. <Tammy Mayen PA-C - Last Filed: 10/10/24 03:29> Course SYSTEMS ARCHITECTURE ANALYST/PA Physician Supervision Patient care taken over at shift change. Patient is pending a CT angiography for safe discharge home. CTA read as no pulmonary embolism and no acute findings within the thorax. Patient re-evaluated and doing well. Normal vital signs. Unremarkable workup here in the emergency department. She was safe for discharge home and given follow-up with her primary care provider and return precautions. <Esa Leslie MD - Last Filed: 10/10/24 04:59> Vital Signs Vital signs: Vital Signs Temperature 36.7 C 10/09/24 19:55 Pulse Rate 68 10/09/24 19:55 Respiratory Rate 17 10/09/24 19:55 Blood Pressure 188/82 H 10/09/24 19:55 Pulse Oximetry 96 10/09/24 19:55 Temperature 36.5 C 10/09/24 23:45 Pulse Rate 61 10/10/24 03:15 Respiratory Rate 12 10/10/24 03:15 Blood Pressure 154/68 H 10/10/24 03:02 Pulse Oximetry 97 10/10/24 03:15 <Tammy Mayen PA-C - Last Filed: 10/10/24 03:29> Vital Signs Temperature 36.7 C 10/09/24 19:55 Pulse Rate 68 10/09/24 19:55 Respiratory Rate 17 10/09/24 19:55 Blood Pressure 188/82 H 10/09/24 19:55 Pulse Oximetry 96 10/09/24 19:55 Temperature 36.5 C 10/09/24 23:45 Pulse Rate 61 10/10/24 03:15 Respiratory Rate 12 10/10/24 03:15 Blood Pressure 154/68 H 10/10/24 03:02 Pulse Oximetry 97 10/10/24 03:15 <Esa Leslie MD - Last Filed: 10/10/24 04:59> MDM - Back Pain/Injury MDM Narrative Medical decision making narrative: Patient presented to ED with 2 day history of pain throughout her right upper back, right-sided chest, right arm. Vital signs are stable upon arrival. Patient was initially mildly hypertensive upon arrival. She does have history of this. Is on medication for this. This did improve without intervention. Exam is fairly unremarkable. Pain is not reproducible on exam. Cardiac workup was obtained. EKG with sinus bradycardia, no concerning ST changes. Troponin undetectable. BNP WNL for age. Patient does not appear acutely fluid overloaded. Cbc without leukocytosis or anemia. Stable electrolytes. Normal LFTs and lipase. CTA of chest was obtained. Patient given tramadol, flexeril, acetaminophen in the ED. On reeval, she is feeling slightly improved. Care signed out to Dr. Leslie at shift change pending STAT RAD CTA results. Likely d/c home as long as imaging is reassuring. <Tammy Mayen PA-C - Last Filed: 10/10/24 03:29> Medical Records Attestation: I reviewed the patient's medical records. <Tammy Mayen PA-C - Last Filed: 10/10/24 03:29> I reviewed the patient's medical records. <Esa Leslie MD - Last Filed: 10/10/24 04:59> Lab Data Attestation: I reviewed the patient's lab results. <Tammy Mayen PA-C - Last Filed: 10/10/24 03:29> I reviewed the patient's lab results. <Esa Leslie MD - Last Filed: 10/10/24 04:59> Result diagrams: 10/10/24 02:18 10/10/24 02:18 <Tammy Mayen PA-C - Last Filed: 10/10/24 03:29> Labs: Lab Results 10/10/24 Range/Units 02:18 WBC 8.3 (4.5-10.0) K/mm3 RBC 4.99 (4.2-5.4) M/mm3 Hgb 14.7 (12.0-15.0) g/dL Hct 44.6 (37.0-47.0) % MCV 89.4 (80-100) fl MCH 29.5 (26-34) pg MCHC 33.0 (32-36) g/dl RDW 13.3 (11.5-14.5) % Plt Count 230 (150-375) k/mm3 MPV 10.1 (7.4-10.4) fl Immature Gran % (Auto) 0.4 (0-0.5) % Neut % (Auto) 56.3 (45.5-73.1) % Lymph % (Auto) 33.2 (18.3-44.2) % [place] Zandt % (Auto) 8.3 (2.6-8.5) % Eos % (Auto) 1.4 (0-4.4) % Baso % (Auto) 0.4 (0.2-1.2) % Lymph # (Auto) 2.77 (0.9-3.2) K/mm3 [place]t # (Auto) 0.7 H (0.1-0.6) K/mm3 Eos # (Auto) 0.1 (0-0.3) K/mm3 Baso # (Auto) 0.0 (0.0-0.1) K/mm3 Abs Immat Gran (auto) 0.03 (0.00-0.031) K/mm3 Absolute Neuts (auto) 4.7 (1.3-6.7) K/mm3 Absolute Nucleated RBC 0.000 (0.0-0.012) K/mm3 Nucleated RBC % 0.0 (0.0-0.2) % PT 21.6 H (11.1-14.7) Seconds INR 1.8 APTT 36.4 (22.3-36.8) Seconds Sodium 139 (137-145) mmol/L Potassium 4.1 (3.4-5.0) mmol/L Chloride 103 (98-107) mmol/L Carbon Dioxide 26 (22-30) mmol/L Anion Gap 10 (4-12) mmol/L BUN 16 (7-17) mg/dL Creatinine 0.60 L (0.7-1.0) mg/dL Estim Creat Clear Calc 71 ml/min Estimated GFR > 60 (59 - ) Glucose 125 H (65-110) mg/dL Calcium 9.3 (8.4-10.2) mg/dL Total Bilirubin 0.7 (0.2-1.3) mg/dL AST 34 (14-36) U/L ALT 31 (6-35) U/L Alkaline Phosphatase 76 (38-126) U/L Troponin I < 0.012 (0.000-0.034) ng/mL NT-Pro-B Natriuret Pep 437 H (19.9-100) pg/mL Total Protein 8.0 (6.3-8.2) g/dL Albumin 4.6 (3.5-5.1) g/dL Lipase 65 (23-300) U/L <Tammy Mayen PA-C - Last Filed: 10/10/24 03:29> Lab Results 10/10/24 Range/Units 02:18 WBC 8.3 (4.5-10.0) K/mm3 RBC 4.99 (4.2-5.4) M/mm3 Hgb 14.7 (12.0-15.0) g/dL Hct 44.6 (37.0-47.0) % MCV 89.4 (80-100) fl MCH 29.5 (26-34) pg MCHC 33.0 (32-36) g/dl RDW 13.3 (11.5-14.5) % Plt Count 230 (150-375) k/mm3 MPV 10.1 (7.4-10.4) fl Immature Gran % (Auto) 0.4 (0-0.5) % Neut % (Auto) 56.3 (45.5-73.1) % Lymph % (Auto) 33.2 (18.3-44.2) % [place]andt % (Auto) 8.3 (2.6-8.5) % Eos % (Auto) 1.4 (0-4.4) % Baso % (Auto) 0.4 (0.2-1.2) % Lymph # (Auto) 2.77 (0.9-3.2) K/mm3 [place] # (Auto) 0.7 H (0.1-0.6) K/mm3 Eos # (Auto) 0.1 (0-0.3) K/mm3 Baso # (Auto) 0.0 (0.0-0.1) K/mm3 Abs Immat Gran (auto) 0.03 (0.00-0.031) K/mm3 Absolute Neuts (auto) 4.7 (1.3-6.7) K/mm3 Absolute Nucleated RBC 0.000 (0.0-0.012) K/mm3 Nucleated RBC % 0.0 (0.0-0.2) % PT 21.6 H (11.1-14.7) Seconds INR 1.8 APTT 36.4 (22.3-36.8) Seconds Sodium 139 (137-145) mmol/L Potassium 4.1 (3.4-5.0) mmol/L Chloride 103 (98-107) mmol/L Carbon Dioxide 26 (22-30) mmol/L Anion Gap 10 (4-12) mmol/L BUN 16 (7-17) mg/dL Creatinine 0.60 L (0.7-1.0) mg/dL Estim Creat Clear Calc 71 ml/min Estimated GFR > 60 (59 - ) Glucose 125 H (65-110) mg/dL Calcium 9.3 (8.4-10.2) mg/dL Total Bilirubin 0.7 (0.2-1.3) mg/dL AST 34 (14-36) U/L ALT 31 (6-35) U/L Alkaline Phosphatase 76 (38-126) U/L Troponin I < 0.012 (0.000-0.034) ng/mL NT-Pro-B Natriuret Pep 437 H (19.9-100) pg/mL Total Protein 8.0 (6.3-8.2) g/dL Albumin 4.6 (3.5-5.1) g/dL Lipase 65 (23-300) U/L <Esa Leslie MD - Last Filed: 10/10/24 04:59> Imaging Data Attestation: I personally reviewed and interpreted this imaging study as follows: < Tammy Mayen PA-C - Last Filed: 10/10/24 03:29> ECG Data EKG #1: Attestation: I personally reviewed and interpreted this ECG as follows: <Tammy Mayen PA-C - Last Filed: 10/10/24 03:29> ECG completion date: 10/10/24 <Tammy Mayen PA-C - Last Filed: 10/10/24 03:29> ECG completion time: 00:44 <Tammy Mayen PA-C - Last Filed: 10/10/24 03:29> EKG Interpretation: bradycardia (58), sinus rhythm and non-specific ST changes <ROMELIA Mix Last Filed: 10/10/24 03:29> Discharge Plan Discharge Clinical Impression: Upper back pain on right side, Right-sided chest pain <ROMELIA Mix Last Filed: 10/10/24 03:29> Patient Disposition: Home <ROMELIA Mix Last Filed: 10/10/24 03:29> Condition: Stable <ROMELIA Mix Last Filed: 10/10/24 03:29> Instructions: Antibiotic Form, Back Pain (ED), Thoracic Back Strain (ED) <ROMELIA Mix Last Filed: 10/10/24 03:29> Additional Instructions: Your workup here was reassuring. Continue Tylenol, home tramadol as needed for pain. Take muscle relaxers as needed and prescribed. Recommend taking these at night as they may cause sedation. Do not drive, operate heavy machinery, drink alcohol while on muscle relaxers as this may cause further sedation. Follow-up with your primary care doctor for further evaluation. Return to the ED if you experience worsening or severe pain, difficulty breathing, unable to keep down food or drink, coughing blood, pain or swelling in legs, or any other symptoms of concern. <ROMELIA Mix Last Filed: 10/10/24 03:29> Patient Language: Syrian <ROMELIA Mix Last Filed: 10/10/24 03:29> Prescriptions: New cyclobenzaprine 5 mg tablet 5 mg PO TID PRN (Reason: muscle spasm) Qty: 10 0RF No Action metoprolol tartrate 75 mg tablet 100 mg PO Q12H Rx Instructions: Takes 100mg BID clobetasol 0.05 % cream 1 applic topical BID Qty: 30 0RF cholecalciferol (vitamin D3) 50 mcg (2,000 unit) tablet 50 mcg PO DAILY losartan 25 mg tablet 25 mg PO DAILY Saccharomyces boulardii [Digest Probiotic (S.boulardii)] 250 mg capsule 5,000 mmu cells PO DAILY amitriptyline 25 mg tablet 25 mg PO QHS Qty: 90 3RF famotidine 40 mg tablet 40 mg PO DAILY Qty: 90 3RF tramadol 50 mg tablet 50 mg PO Q8H PRN (Reason: pain) Qty: 60 0RF Xarelto 20 mg tablet 20 mg PO QPM coenzyme Q10 [Co Q-10] 400 mg capsule 400 mg PO DAILY hydrocortisone [Anusol-HC] 2.5 % cream with perineal applicator 1 applic RECTAL DAILY PRN (Reason: hemorrhoids) Qty: 30 0RF dicyclomine 20 mg tablet 20 mg PO BID Qty: 180 0RF atorvastatin 40 mg tablet 40 mg PO DAILY Qty: 90 1RF <Tammy Mayen PA-C - Last Filed: 10/10/24 03:29> Follow-up/Referrals: Anup Ruelas MD [Primary Care Provider] - <Tammy Mayen PA-C - Last Filed: 10/10/24 03:29> Time of Disposition: 04:59 <Tammy Mayen PA-C - Last Filed: 10/10/24 03:29> 04:59 <Esa Leslie MD - Last Filed: 10/10/24 04:59>
[2024-10-10] MEDS: traMADol HCL (*CRX) 50 MG TABLET PO (02:22)
[2024-10-10] MEDS: CYCLOBENZAPRINE HCL 5 MG TABLET PO (02:22)
[2024-10-10] MEDS: ACETAMINOPHEN 500 MG TABLET 1000 MG PO (02:23)
[2024-10-10 02:24] LABS: Basophils Percent Auto 0.4 % (0.2-1.2); Eosinophils Absolute Auto 0.1 K/mm3 (0-0.3); Eosinophils Percent Auto 1.4 % (0-4.4); Hematocrit 44.6 % (37.0-47.0); Hemoglobin 14.7 g/dL (12.0-15.0); Immature Granulocyte Absolute 0.03 K/mm3 (0.00-0.031); Immature Granulocyte Percent A 0.4 % (0-0.5); Lymphocytes Absolute Auto 2.77 K/mm3 (0.9-3.2); Lymphocytes Percent Auto 33.2 % (18.3-44.2); Mean Corpuscular Hemoglobin 29.5 pg (26-34); Mean Corpuscular Volume 89.4 fl (80-100); Mean Platelet Volume 10.1 fl (7.4-10.4); Monocytes Absolute Auto 0.7 K/mm3 (0.1-0.6); Monocytes Percent Auto 8.3 % (2.6-8.5); Neutrophils Absolute Auto 4.7 K/mm3 (1.3-6.7); Neutrophils Percent Auto 56.3 % (45.5-73.1); Platelet Count Result 230 k/mm3 (150-375); Red Blood Count 4.99 M/mm3 (4.2-5.4); Red Cell Distribution Width 13.3 % (11.5-14.5); White Blood Count 8.3 K/mm3 (4.5-10.0)
[2024-10-10 02:35] LABS: INR 1.8; Partial Thromboplastin Time 36.4 Seconds (22.3-36.8); Prothrombin Time 21.6 Seconds (11.1-14.7)
[2024-10-10 02:36] LABS: Alanine Aminotransferase 31 U/L (6-35); Albumin Level 4.6 g/dL (3.5-5.1); Alkaline Phosphatase 76 U/L (38-126); Anion Gap 10 mmol/L (4-12); Aspartate Amino Transferase 34 U/L (14-36); Bilirubin,Total 0.7 mg/dL (0.2-1.3); Blood Urea Nitrogen 16 mg/dL (7-17); Calcium 9.3 mg/dL (8.4-10.2); Carbon Dioxide 26 mmol/L (22-30); Chloride 103 mmol/L (98-107); Estimated CRCL calculation 71 ml/min; Estimated Glomerular Filt Rate > 60; Glucose 125 mg/dL (65-110); Lipase 65 U/L (23-300); Potassium 4.1 mmol/L (3.4-5.0); Sodium 139 mmol/L (137-145)
[2024-10-10 02:44] LABS: NT Pro B Type Natriuretic Pept 437 pg/mL (19.9-100)
[2024-10-10 02:48] LABS: Troponin I < 0.012 ng/mL (0.000-0.034)
[2024-10-10] MEDS: ONDANSETRON INJ 4 MG/2 ML VIAL IV PUSH (03:46)
== END 2024-10-10 05:23 | disposition home or self-care (01) ==
PROVIDERS: Emergency Provider Physician Assistant; PCP Family Medicine
DX: M54.6 Pain in thoracic spine (principal); R07.9 Chest pain, unspecified; R06.02 Shortness of breath; I48.91 Unspecified atrial fibrillation; I10 Essential (primary) hypertension; I48.92 Unspecified atrial flutter; E78.2 Mixed hyperlipidemia; K58.0 Irritable bowel syndrome with diarrhea; K21.9 Gastro-esophageal reflux disease without esophagitis; Z90.710 Acquired absence of both cervix and uterus; Z90.49 Acquired absence of other specified parts of digestive tract; Z79.01 Long term (current) use of anticoagulants; Z79.899 Other long term (current) drug therapy; R00.1 Bradycardia, unspecified; I51.7 Cardiomegaly; R94.31 Abnormal electrocardiogram [ECG] [EKG]
CPT/HCPCS: 36415; 71275; 80053; 83690; 83880; 84484; 85025; 85610; 85730; 93005; 96374; 99284; A9270; J2405; Q9967

== ENCOUNTER 2024-10-12 10:33 | Outpatient (CLI) | payer MEDICARE, SELFPAY ==
--- NOTE | ~2024-10-12 | XR_ITS ---
Thoracic spine: Clinical Indication: Back pain AP and lateral views were performed. No fracture is seen. There is normal alignment of the vertebrae. There is multilevel mild to moderat e degenerative disc narrowing the thoracic spine. Paravertebral soft tissues appear normal. Impression: Multilevel mild to moderate degenerative disc narrowing. Reviewed, dictated and finalized at location . Impression: Multilevel mild to moderate degenerative disc narrowing.
--- OUTSIDE RECORDS SUMMARY | 2024-10-12 11:30 | XMS_ITS | Encounter Summary ---
Author Organization [facility] Healthcare Address [address] [place] [address] Care Team Providers Care Spice Cleaner Name Role Phone Tom Case MD Primary Care Provider Reason for Visit * Diagnostic Imaging (Routine) - Closed Specialty Diagnoses / Procedures Referred By Contac t Referred To Contact Procedures Breast Imaging Screening Outside Reference Adriana Joseph MD PhD [address] [phone] [place] [address] Phone: tel: fax: Referral ID Status Reason Start Date Expiration Date Visits Re quested Visits Authorized [id number] Closed 10/27/2021 11/26/2022 1 1 Encounter Details Date Type Department Care Team (Late st Contact Info) Description 07/20/2019 Hospital Encounter [facility] [address] [place] [id number] Social History Tobacco Use Types Packs/Day Years Used Date Smoking Tobacco: Never Smokeless Tobacco: Never Alcohol Use Standard Drinks/Week Comments Yes 0 (1 standard drink = 0.6 oz pur e alcohol) rarely Comments Unknown Sex and Gender Information Value Date Recorded Sex Assigned at Not on file Legal Sex Female 3:22 PM ADVERTISING SPECIALIST Gender Identity Not on file Sexual Orientation Not on file documented as of this encounter Plan of Treatment Not on file documented as of this encounter Procedures Procedure Name Priority Date/Time Associated Diagnosis Comments BREAST IMAGING MG SCREENING OUTSIDE REFERENCE Routine 07/20/2019 12:00 AM ADVERTISING SPECIALIST documented in this encounter Results * Breast Imaging Screening Outside Reference (07/20/2019 12:00 AM ADVERTISING SPECIALIST) Impressions [facility] - 10/27/2021 10:34 AM CDT These images are for Reference purposes only and have not been reviewed by [facility]. There will be no report generated by a [facility] Radiologist. Narrative [facility] - 10/27/2021 10:34 AM CDT EXAMINATION: Images For Reference Purposes Only us Adriana Joseph MD PhD IMG MAMMO PROCEDURES Final Result [facility] documented in this encounter Visit Diagnoses Not on filedocumented in this encounter Care Teams Spice Cleaner Relationship Specialty Start Date End Date Tom Case MD [address] [place] [address] PCP - General Internal Medicine 01/14/18 01/26/22 documented as of this encounter
--- OUTSIDE RECORDS SUMMARY | 2024-10-12 11:30 | XMS_ITS | Encounter Summary ---
Author Organization [facility] Healthcare Address [address] [place] [address] Care Team Providers Care Weapons Designer Name Role Phone Penny Bernal MD Primary Care Provider + Reason for Visit * Diagnostic Imaging (Routine) - Closed Specialty Diagnoses / Procedures Referred By Contac t Referred To Contact Procedures Breast Imaging Screening Outside Reference Adriana Joseph MD PhD [address] [phone] [place] [address] Phone: tel: fax: Referral ID Status Reason Start Date Expiration Date Visits Re quested Visits Authorized [id number] Closed 10/27/2021 11/26/2022 1 1 Encounter Details Date Type Department Care Team (Late st Contact Info) Description 06/03/2016 12:05 AM WARP SPLITTER Hospital Encounter [facility] [address] [place] [address] Social History Tobacco Use Types Packs/Day Years Used Date Smoking Tobacco: Never Smokeless Tobacco: Never Alcohol Use Standard Drinks/Week Comments Yes 0 (1 standard drink = 0.6 oz pur e alcohol) rarely Comments Unknown Sex and Gender Information Value Date Recorded Sex Assigned at Not on file Legal Sex Female 3:22 PM WARP SPLITTER Gender Identity Not on file Sexual Orientation Not on file documented as of this encounter Plan of Treatment Not on file documented as of this encounter Procedures Procedure Name Priority Date/Time Associated Diagnosis Comments BREAST IMAGING MG SCREENING OUTSIDE REFERENCE Routine 06/03/2016 12:05 AM WARP SPLITTER documented in this encounter Results * Breast Imaging Screening Outside Reference (06/03/2016 12:05 AM WARP SPLITTER) Impressions [facility] - 10/27/2021 10:35 AM CDT [...] on filedocumented in this encounter Care Teams Weapons Designer Relationship Specialty Start Date End Date Penny Bernal MD [address] [place] [address] PCP - General 08/23/10 01/13/18 documented as of this encounter
--- OUTSIDE RECORDS SUMMARY | 2024-10-12 11:30 | XMS_ITS | Encounter Summary ---
Author Organization [facility] Healthcare Address [address] [place] [address] Care Team Providers Care Program Coordinator For Residence Life Name Role Phone Penny Bernal MD Primary Care Provider + Reason for Visit * Diagnostic Imaging (Routine) - Closed Specialty Diagnoses / Procedures Referred By Contac t Referred To Contact Procedures Breast Imaging Screening Outside Reference Adriana Joseph MD PhD [address] [id number] [place] [address] Phone: tel: fax: Referral ID Status Reason Start Date Expiration Date Visits Re quested Visits Authorized [id number] Closed 10/27/2021 11/26/2022 1 1 Encounter Details Date Type Department Care Team (Late st Contact Info) Description 06/03/2016 Hospital Encounter [facility] [address] [place] [address] Social History Tobacco Use Types Packs/Day Years Used Date Smoking Tobacco: Never Smokeless Tobacco: Never Alcohol Use Standard Drinks/Week Comments Yes 0 (1 standard drink = 0.6 oz pur e alcohol) rarely Comments Unknown Sex and Gender Information Value Date Recorded Sex Assigned at Not on file Legal Sex Female 3:22 PM SUPERVISOR FURNACE ROOM Gender Identity Not on file Sexual Orientation Not on file documented as of this encounter Plan of Treatment Not on file documented as of this encounter Procedures Procedure Name Priority Date/Time Associated Diagnosis Comments BREAST IMAGING MG SCREENING OUTSIDE REFERENCE Routine 06/03/2016 12:00 AM SUPERVISOR FURNACE ROOM documented in this encounter Results * Breast Imaging Screening Outside Reference (06/03/2016 12:00 AM SUPERVISOR FURNACE ROOM) Impressions [facility] - 10/27/2021 10:35 AM CDT These images are for Reference purposes only and have not been reviewed by [facility]iology. There will be no report generated by a [facility] Radiologist. Narrative [facility] - 10/27/2021 10:35 AM CDT EXAMINATION: Images For Reference Purposes Only us Adriana Joseph MD PhD IMG MAMMO PROCEDURES Final Result [facility] documented in this encounter Visit Diagnoses Not on filedocumented in this encounter Care Teams Program Coordinator For Residence Life Relationship Specialty Start Date End Date Penny Bernal MD [address] [place] [address] PCP - General 08/23/10 01/13/18 documented as of this encounter
--- OUTSIDE RECORDS SUMMARY | 2024-10-12 11:30 | XMS_ITS | Encounter Summary ---
Author Organization [facility] Healthcare Address [address] [place] [address] Care Team Providers Care Crane Ladle Person Name Role Phone Tom Case MD Primary Care Provider [phone] Reason for Visit * Diagnostic Imaging (Routine) - Closed Specialty Diagnoses / Procedures Referred By Contac t Referred To Contact Procedures Breast Imaging US Outside Reference Adriana Joseph MD PhD [address] [phone] [place] [address] Phone: tel: fax: Referral ID Status Reason Start Date Expiration Date Visits Re quested Visits Authorized [id number] Closed 10/27/2021 11/26/2022 1 1 Encounter Details Date Type Department Care Team (Late st Contact Info) Description 08/20/2020 Hospital Encounter [facility] [address] [place] [id number] Social History Tobacco Use Types Packs/Day Years Used Date Smoking Tobacco: Never Smokeless Tobacco: Never Alcohol Use Standard Drinks/Week Comments Yes 0 (1 standard drink = 0.6 oz pur e alcohol) rarely Comments Unknown Sex and Gender Information Value Date Recorded Sex Assigned at Not on file Legal Sex Female 3:22 PM TELETYPE INSTALLER Gender Identity Not on file Sexual Orientation Not on file documented as of this encounter Plan of Treatment Not on file documented as of this encounter Procedures Procedure Name Priority Date/Time Associated Diagnosis Comments BREAST IMAGING US OUTSIDE REFERENCE Routine 08/20/2020 12:00 AM TELETYPE INSTALLER documented in this encounter Results * Breast Imaging US Outside Reference (08/20/2020 12:00 AM TELETYPE INSTALLER) Impressions [facility] - 10/27/2021 10:33 AM CDT These images are for Reference purposes only and have not been reviewed by [facility] Radiology. There will be no report generated by a [facility] Radiologist. Narrative [facility] - 10/27/2021 10:33 AM CDT EXAMINATION: Images For Reference Purposes Only us Adriana Joseph MD PhD IMG MAMMO PROCEDURES Final Result [facility] documented in this encounter Visit Diagnoses Not on filedocumented in this encounter Care Teams Crane Ladle Person Relationship Specialty Start Date End Date Tom Case MD [address] [place] [address] PCP - General Internal Medicine 01/14/18 01/26/22 documented as of this encounter
--- OUTSIDE RECORDS SUMMARY | 2024-10-12 11:30 | XMS_ITS | Encounter Summary ---
Author Organization [facility] Healthcare Address [address] [place] [address] Care Team Providers Care Sheet Rock Layer Name Role Phone Tom Case MD Primary Care Provider [phone] Reason for Visit * Diagnostic Imaging (Routine) - Closed Specialty Diagnoses / Procedures Referred By Contac t Referred To Contact Procedures Breast Imaging Screening Outside Reference Adriana Joseph MD PhD [address] [phone] [place] [address] Phone: tel: fax: Referral ID Status Reason Start Date Expiration Date Visits Re quested Visits Authorized [id number] Closed 10/27/2021 11/26/2022 1 1 Encounter Details Date Type Department Care Team (Late st Contact Info) Description 06/15/2018 Hospital Encounter [facility] [address] [place] [address] Social History Tobacco Use Types Packs/Day Years Used Date Smoking Tobacco: Never Smokeless Tobacco: Never Alcohol Use Standard Drinks/Week Comments Yes 0 (1 standard drink = 0.6 oz pur e alcohol) rarely Comments Unknown Sex and Gender Information Value Date Recorded Sex Assigned at Not on file Legal Sex Female 3:22 PM SALES LEDGER CLERK Gender Identity Not on file Sexual Orientation Not on file documented as of this encounter Plan of Treatment Not on file documented as of this encounter Procedures Procedure Name Priority Date/Time Associated Diagnosis Comments BREAST IMAGING MG SCREENING OUTSIDE REFERENCE Routine 06/15/2018 12:00 AM SALES LEDGER CLERK documented in this encounter Results * Breast Imaging Screening Outside Reference (06/15/2018 12:00 AM SALES LEDGER CLERK) Impressions [facility] - 10/27/2021 10:34 AM CDT These images are for Reference purposes only and have not been reviewed by [facility] Radiology. There will be no report generated by a [facility] Radiologist. Narrative [facility] - 10/27/2021 10:34 AM CDT EXAMINATION: Images For Reference Purposes Only us Adriana Joseph MD PhD IMG MAMMO PROCEDURES Final Result [facility] documented in this encounter Visit Diagnoses Not on filedocumented in this encounter Care Teams Sheet Rock Layer Relationship Specialty Start Date End Date Tom Case MD [address] [place] [address] PCP - General Internal Medicine 01/14/18 01/26/22 documented as of this encounter
--- OUTSIDE RECORDS SUMMARY | 2024-10-12 11:30 | XMS_ITS | Encounter Summary ---
Author Organization [facility] Healthcare Address [address] [place] [address] Care Team Providers Care Flue Dust Laborer Name Role Phone Tom Case MD Primary Care Provider [phone] Reason for Visit * Diagnostic Imaging (Routine) - Closed Specialty Diagnoses / Procedures Referred By Contac t Referred To Contact Procedures Breast Imaging Screening Outside Reference Adriana Joseph MD PhD [address] [phone] [place] [address] Phone: tel: fax: Referral ID Status Reason Start Date Expiration Date Visits Re quested Visits Authorized [id number] Closed 10/27/2021 11/26/2022 1 1 Encounter Details Date Type Department Care Team (Late st Contact Info) Description 07/25/2020 Hospital Encounter [facility] [address] [place] [address] Social History Tobacco Use Types Packs/Day Years Used Date Smoking Tobacco: Never Smokeless Tobacco: Never Alcohol Use Standard Drinks/Week Comments Yes 0 (1 standard drink = 0.6 oz pur e alcohol) rarely Comments Unknown Sex and Gender Information Value Date Recorded Sex Assigned at Not on file Legal Sex Female 3:22 PM PRESS HAND SUPERVISOR Gender Identity Not on file Sexual Orientation Not on file documented as of this encounter Plan of Treatment Not on file documented as of this encounter Procedures Procedure Name Priority Date/Time Associated Diagnosis Comments BREAST IMAGING MG SCREENING OUTSIDE REFERENCE Routine 07/25/2020 12:00 AM PRESS HAND SUPERVISOR documented in this encounter Results * Breast Imaging Screening Outside Reference (07/25/2020 12:00 AM PRESS HAND SUPERVISOR) Impressions [facility] - 10/27/2021 10:34 AM CDT These images are for Reference purposes only and have not been reviewed by [facility] Radiology. There will be no report generated by a [facility] Radiologist. Narrative [facility] - 10/27/2021 10:34 AM CDT EXAMINATION: Images For Reference Purposes Only us Adriana Joseph MD PhD IMG MAMMO PROCEDURES Final Result [facility] documented in this encounter Visit Diagnoses Not on filedocumented in this encounter Care Teams Flue Dust Laborer Relationship Specialty Start Date End Date Tom Case MD [address] [place] [address] PCP - General Internal Medicine 01/14/18 01/26/22 documented as of this encounter
--- OUTSIDE RECORDS SUMMARY | 2024-10-12 11:30 | XMS_ITS | Clinical Summary ---
Author Organization [facility] [address] Address [address] [place] [address] Care Team Providers Care Financial Services Representative Name Role Phone Anup Ruelas MD Primary Care Provider [phone] Allergies Active Allergy Reactions Criticality Noted Date Comments Cephalexin Nausea only Low Codeine Nausea only Low Dexlansoprazole Unknown 07/21/2021 Levofloxacin Nausea only Low Metronidazole Nausea only Low Esomeprazole Hives Medium 01/31/2019 Niacin Cough Low 07/09/2020 Pseudoephedrine Other (See comments) Low 07/09/2020 Medications bacillus-protea cc-dfurpx-yoanm (DIGESTIVE ADVANTAGE INTENS BOW) 1 billion cell- 30,000 unit capsule take one daily 0 0 06/10/20 16 Active cholecalciferol (VITAMIN D3) 1,000 unit capsule take 1 by Oral route once 0 0 06/10/20 16 Active coenzyme Q10 (CO Q-10) 400 mg capsule take one daily 0 0 06/10/20 16 Active omega 8-wpw-aot-fish oil (FISH OIL) 300-1,000 mg capsule,delayed release(DR/EC) take 1 capsule by oral route 2 times every day 0 0 06/10/20 16 Active vitamin A-vitamin C-vit E-min tablet Take by mouth daily [facility] ([facility] Recovr) Active dicyclomine (BENTYL) 20 mg tablet Take [...] on file Legal Sex Female 3:22 PM ASSEMBLER HANDBAGS Gender Identity Not on file Sexual Orientation Not on file Obstetrics History Last Filed Vital Signs Vital Sign Reading Time Taken Comments Blood Pressure 126/74 05/25/2024 12:56 PM ASSEMBLER HANDBAGS Pulse 64 05/25/2024 12:56 PM ASSEMBLER HANDBAGS Temperature 36.6 C (97.9 F) 11/11/2021 10:43 AM CDT Respiratory Rate 16 02/16/2023 9:10 AM CDT Oxygen Saturation 97% 05/25/2024 12:56 PM ASSEMBLER HANDBAGS Inhaled Oxygen Concentration - - Weight 98 kg (216 lb) 05/25/2024 12:56 PM ASSEMBLER HANDBAGS Height 160 cm (5' 3 ) 05/25/2024 12:56 PM ASSEMBLER HANDBAGS Body Mass Index 38.26 05/25/2024 12:56 PM ASSEMBLER HANDBAGS Plan of Treatment Health Maintenance Due Date [...] to Subscriber:Self Name:Dena Aldana Payer ID:[id number] (NAIC) Type:[employer] Address: [place] [phone] [employer]HC MEDICARE ADVANTAGE Member Subscriber Plan / Payer (Ef fective 2021-Present) Name:Dena Aldana Relation to Subscriber:Self Name:Dena Aldana Payer ID:[id number] (NAIC) Type:[employer] Address: [place] [phone] [employer] MED[employer]ARE ADVANTAGE Care Teams Financial Services Representative Relationship Specialty Start Date End Date Anup Ruelas MD PCP - General Family Medicine 09/08/22
--- OUTSIDE RECORDS SUMMARY | 2024-10-12 11:30 | XMS_ITS | Encounter Summary ---
Author Organization [facility] Healthcare Address [address] [place] [address] Care Team Providers Care Guzzler Builder Name Role Phone Penny Bernal MD Primary Care Provider + Reason for Visit * Diagnostic Imaging (Routine) - Closed Specialty Diagnoses / Procedures Referred By Contac t Referred To Contact Procedures Breast Imaging Screening Outside Reference Adriana Joseph MD PhD [address] [facility] [address] [phone] [place] [address] Phone: tel: fax: Referral ID Status Reason Start Date Expiration Date Visits Re quested Visits Authorized [id number] Closed 10/27/2021 11/26/2022 1 1 Encounter Details Date Type Department Care Team (Late st Contact Info) Description 06/10/2017 Hospital Encounter [facility] [address] [place] [address] Social History Tobacco Use Types Packs/Day Years Used Date Smoking Tobacco: Never Smokeless Tobacco: Never Alcohol Use Standard Drinks/Week Comments Yes 0 (1 standard drink = 0.6 oz pur e alcohol) rarely Comments Unknown Sex and Gender Information Value Date Recorded Sex Assigned at Not on file Legal Sex Female 3:22 PM BURGLAR ALARM OPERATOR Gender Identity Not on file Sexual Orientation Not on file documented as of this encounter Plan of Treatment Not on file documented as of this encounter Procedures Procedure Name Priority Date/Time Associated Diagnosis Comments BREAST IMAGING MG SCREENING OUTSIDE REFERENCE Routine 06/10/2017 12:00 AM BURGLAR ALARM OPERATOR documented in this encounter Results * Breast Imaging Screening Outside Reference (06/10/2017 12:00 AM BURGLAR ALARM OPERATOR) Impressions [facility] - 10/27/2021 10:35 AM CDT These images are for Reference purposes only and have not been reviewed by [facility] Radiology. There will be no report generated by a [facility] Radiologist. Narrative [facility] - 10/27/2021 10:35 AM CDT EXAMINATION: Images For Reference Purposes Only us Adriana Joseph MD PhD IMG MAMMO PROCEDURES Final Result [facility] documented in this encounter Visit Diagnoses Not on filedocumented in this encounter Care Teams Guzzler Builder Relationship Specialty Start Date End Date Penny Bernal MD [address] [place] [address] PCP - General 08/23/10 01/13/18 documented as of this encounter
--- OUTSIDE RECORDS SUMMARY | 2024-10-12 11:30 | XMS_ITS | Encounter Summary ---
Author Organization [facility] Healthcare Address [address] [place] [address] Care Team Providers Care Gift Basket Packer Name Role Phone Tom Case MD Primary Care Provider [phone] Reason for Visit * Diagnostic Imaging (Routine) - Closed Specialty Diagnoses / Procedures Referred By Contac t Referred To Contact Procedures Breast Imaging Diagnostic Outside Reference Adriana Joseph MD PhD [address] [address] [phone] [place] [address] Phone: tel: fax: Referral ID Status Reason Start Date Expiration Date Visits Re quested Visits Authorized [id number] Closed 10/27/2021 11/26/2022 1 1 Encounter Details Date Type Department Care Team (Late st Contact Info) Description 08/20/2020 12:05 AM UTILIZATION REVIEW NURSE Hospital Encounter [facility]iology [facility] [address] [place] [address] Social History Tobacco Use Types Packs/Day Years Used Date Smoking Tobacco: Never Smokeless Tobacco: Never Alcohol Use Standard Drinks/Week Comments Yes 0 (1 standard drink = 0.6 oz pur e alcohol) rarely Comments Unknown Sex and Gender Information Value Date Recorded Sex Assigned at Not on file Legal Sex Female 3:22 PM UTILIZATION REVIEW NURSE Gender Identity Not on file Sexual Orientation Not on file documented as of this encounter Plan of Treatment Not on file documented as of this encounter Procedures Procedure Name Priority Date/Time Associated Diagnosis Comments BREAST IMAGING MG DIAGNOSTIC OUTSIDE REFERENCE Routine 08/20/2020 12:05 AM UTILIZATION REVIEW NURSE documented in this encounter Results * Breast Imaging Diagnostic Outside Reference (08/20/2020 12:05 AM UTILIZATION REVIEW NURSE) Impressions [facility] - 10/27/2021 10:35 AM CDT These images are for Reference purposes only and have not been reviewed by [facility] Radiology. There will be no report generated by a [facility] Radiologist. Narrative [facility] - 10/27/2021 10:35 AM CDT EXAMINATION: Images For Reference Purposes Only us Adriana Joseph MD PhD IMG MAMMO PROCEDURES Final Result [facility] documented in this encounter Visit Diagnoses Not on filedocumented in this encounter Care Teams Gift Basket Packer Relationship Specialty Start Date End Date Tom Case MD [address] [place], [place] [id number] PCP - General Internal Medicine 01/14/18 01/26/22 documented as of this encounter
--- OUTSIDE RECORDS SUMMARY | 2024-10-12 11:30 | XMS_ITS | Referral Summary ---
Author Organization [facility] [address] Address [address] [place] [address] Care Team Providers Care Concrete Swimming Pool Installer Name Role Phone Anup Ruelas MD Primary Care Provider [phone] Allergies Active Allergy Reactions Criticality Noted Date Comments Cephalexin Nausea only Low Codeine Nausea only Low Dexlansoprazole Unknown 07/21/2021 Levofloxacin Nausea only Low Metronidazole Nausea only Low Esomeprazole Hives Medium 01/31/2019 Niacin Cough Low 07/09/2020 Pseudoephedrine Other (See comments) Low 07/09/2020 Medications bacillus-protea ts-eedomg-zmwsb (DIGESTIVE ADVANTAGE INTENS BOW) 1 billion cell- 30,000 unit capsule take one daily 0 0 06/10/20 16 Active cholecalciferol (VITAMIN D3) 1,000 unit capsule take 1 by Oral route once 0 0 06/10/20 16 Active coenzyme Q10 (CO Q-10) 400 mg capsule take one daily 0 0 06/10/20 16 Active omega 6-yzd-bqp-fish oil (FISH OIL) 300-1,000 mg capsule,delayed release(DR/EC) take 1 capsule by oral route 2 times every day 0 0 06/10/20 16 Active vitamin A-vitamin C-vit E-min tablet Take by mouth daily [facility] ([facility] Context Relevant) Active dicyclomine (BENTYL) 20 mg tablet Take [...] on file Legal Sex Female 3:22 PM HOLLOW HANDLE BENCH WORKER Gender Identity Not on file Sexual Orientation Not on file Last Filed Vital Signs Vital Sign Reading Time Taken Comments Blood Pressure 126/74 05/25/2024 12:56 PM HOLLOW HANDLE BENCH WORKER Pulse 64 05/25/2024 12:56 PM HOLLOW HANDLE BENCH WORKER Temperature 36.6 C (97.9 F) 11/11/2021 10:43 AM CDT Respiratory Rate 16 02/16/2023 9:10 AM CDT Oxygen Saturation 97% 05/25/2024 12:56 PM HOLLOW HANDLE BENCH WORKER Inhaled Oxygen Concentration - - Weight 98 kg (216 lb) 05/25/2024 12:56 PM HOLLOW HANDLE BENCH WORKER Height 160 cm (5' 3 ) 05/25/2024 12:56 PM HOLLOW HANDLE BENCH WORKER Body Mass Index 38.26 05/25/2024 12:56 PM HOLLOW HANDLE BENCH WORKER Plan of Treatment Not on file Procedures [...] to Health Maintenance Insurance UHC MEDICARE ADVANTAGE [facility] MEDICARE ADVANTAGE UHC MEDICARE ADVANTAGE Care Teams Concrete Swimming Pool Installer Relationship Specialty Start Date End Date Anup Ruelas MD PCP - General Family Medicine 09/08/22
--- OUTSIDE RECORDS SUMMARY | 2024-10-12 11:30 | XMS_ITS | Encounter Summary ---
Author Organization [facility] Address [address] [place] [address] Care Team Providers Care Industrial Health And Safety Professor Name Role Phone Penny Bernal MD Primary Care Provider + Tom Case MD Primary Care Provider [phone] Navin Barger MD Primary Care Provider [phone] Anup Ruelas MD Primary Care Provider [phone] Encounter Details Date Type Department Care Team (Late st Contact Info) Description 03/30/2012 Orders Only [facility] Health Information Management [address] [place] [address] Scanning, Provider Social History Tobacco Use Types Packs/Day Years Used Date Smoking Tobacco: Never Assessed Comments Unknown Sex and Gender Information Value Date Recorded Sex Assigned at Not on file Legal Sex Female 3:22 PM LINE SERVICE PERSON Gender Identity Not on file Sexual Orientation [...] on filedocumented in this encounter Care Teams Industrial Health And Safety Professor Relationship Specialty Start Date End Date Penny Bernal MD [address] [place] [address] PCP - General 08/23/10 01/13/18 Tom Case MD [address] [facility] [address] [facility] [address] [place] [address] PCP - General Internal Medicine 01/14/18 01/26/22 Navin Barger MD [address] [address] PCP - General Family Medicine 01/27/22 09/07/22 Anup Ruelas MD [facility] [address] [address] PCP - General Family Medicine 09/08/22 documented as of this encounter
== END 2024-10-12 10:34 | disposition home or self-care (01) ==
PROVIDERS: PCP Family Medicine; Visit Provider Nurse Practitioner Adult Health
DX: M54.9 Dorsalgia, unspecified (principal); M51.34 Other intervertebral disc degeneration, thoracic region
CPT/HCPCS: 72070

== ENCOUNTER 2024-10-25 10:50 | Outpatient (CLI) | payer MEDICARE, SELFPAY ==
--- NOTE | ~2024-10-25 | MR_ITS ---
MRI of the thoracic spine Clinical History: Hypertrophic osteoarthropathy Technique: Axial T2-weighted and gradient images, and sagittal T1-weighted, T2-weighted, and STIR justice ges were acquired. Findings: There is no fracture or subluxation of the thoracic spine. Vertebral bodies maintain normal height and alignment. There is multilevel moderate to advanced degenerative disc narrowing, especial ly at the mid to upper thoracic spine. No suspicious bone marrow signal abnormality seen. No significant disc bulge or herniation identified at any thoracic level. There is minimal disc bulge at T6-T7. No spinal canal stenosis or cord compression. Neural foramina are preserved throughout the thoracic spine. No abnormal signal seen in the spinal cord. Paravertebral soft tissues are unremarkable. Impression: Mild degenerative spondylosis, as above. Reviewed, dictated and finalized at location . Impression: Mild degenerative spondylosis, as above.
== END 2024-10-25 10:51 | disposition home or self-care (01) ==
LOC: MICIMG 10:51
PROVIDERS: PCP Family Medicine; Visit Provider Nurse Practitioner Adult Health
DX: M89.49 Other hypertrophic osteoarthropathy, multiple sites (principal); M51.34 Other intervertebral disc degeneration, thoracic region; M47.894 Other spondylosis, thoracic region
CPT/HCPCS: 72146

== ENCOUNTER 2024-12-04 14:31 | Emergency (ER) | payer MEDICARE, SELFPAY ==
[2024-12-04 14:39] VITALS: BP 144/61; PULSE 71; RESP 18; TEMP 36.3; O2SAT 98
--- NOTE | 2024-12-04 15:14 | ED.EAR ---
HPI - Ear Problem General Chief complaint: Ear Stated complaint: Ear Wax Removal Bilateral Ear Time Seen by Provider: 12/04/24 14:48 Source: patient and RN notes reviewed Mode of arrival: ambulatory Limitations: no limitations History of Present Illness HPI Narrative: Patient presents today for requesting cerumen removal. She was at the heart specialist just prior to arrival and was told she had impacted cerumen bilaterally. Denies pain or drainage. No OTC treatment prior to arrival. Related Data Home Medications ?Medication ?Instructions ?Recorded ?Confirmed ?Last Taken ?Type coenzyme Q10 400 mg capsule (Co 400 mg PO DAILY 06/19/19 10/12/24 1 Day Ago History Q-10) ~04/14/22 rivaroxaban 20 mg tablet (Xarelto) 20 mg PO QPM 06/19/19 10/12/24 1 Day Ago History ~04/14/22 cholecalciferol (vitamin D3) 50 50 mcg PO DAILY 02/11/21 10/12/24 1 Day Ago History mcg (2,000 unit) tablet ~04/14/22 Saccharomyces boulardii 250 mg 5,000 mmu cells PO DAILY 08/06/22 10/12/24 Unknown History capsule (Digest Probiotic (S.boulardii)) losartan 25 mg tablet 25 mg PO DAILY 08/06/22 10/12/24 Unknown History metoprolol tartrate 75 mg tablet 100 mg PO Q12H 01/12/24 10/12/24 Unknown History Allergies Allergy/AdvReac Type Severity Reaction Status Date / Time No Known Allergies Allergy Verified 12/04/24 14:34 Review of Systems Review of Systems: CONSTITUTIONAL: Denies body aches, fever, chills, or sweats. EYES: Denies visual changes, redness, or discharge. ENT: Denies rhinorrhea, congestion, sore throat, or otalgia. + bilateral cerumen impaction CARDIOVASCULAR: Denies chest pain, palpitations, or edema. RESPIRATORY: Denies cough or dyspnea. GASTROINTESTINAL: Denies abdominal pain, nausea, vomiting, or diarrhea. GENITOURINARY: Denies dysuria or hematuria. SKIN: Denies rash, itching, or wounds. MUSCULOSKELETAL: Denies back pain, joint pain, or myalgia. NEUROLOGIC: Denies headache, numbness, tingling, or weakness. PSYCH: Denies depression or anxiety. [facility] Past Medical History Medical History Chest pain Upper abdominal pain Degenerative disc disease, thoracic Thoracic back pain Elevated glucose BMI 35.0-35.9,adult Sigmoid diverticulitis Atrial fibrillation Abnormal urine Encounter to establish care Irritable bowel syndrome with diarrhea Benign essential hypertension Gastroesophageal reflux disease without esophagitis Mixed hyperlipidemia Paroxysmal atrial flutter Surgical History Surgical History History of hysterectomy History of knee surgery History of cholecystectomy Family History Family History Sibling Family history of malignant neoplasm of breast in first degree relative Family history of heart disease in male family member before age 55 Breast cancer Mother Family history of heart disease in male family member before age 55 Diabetes mellitus Pacemaker A-fib CHF (congestive heart failure) Grandparent Cancer Father Arthritis A-fib Sibling Diabetes mellitus A-fib Other Cerebrovascular accident Family history of arthritis Family history of atrial fibrillation Family history of cardiovascular disease Family history of chronic obstructive pulmonary disease Family history of congestive heart failure Family history of malignant neoplasm of male breast Hypertension Social History Social History Smoking status: Never smoker Second hand tobacco smoke exposure: Yes Alcohol intake: current Alcohol use details: rarely Substance use: never Substance use type: does not use Do You Feel Safe in your Home?: Yes Lack of Transportation: No Lack of Food: Never True Current Housing: I Have Housing Concerned About Future Housing: No Difficulty Paying Gas/Electric Bills: No Difficulty Paying for Meds: No Currently Unemployed: No Education: High School Diploma/GED Difficulty w/ Childcare or Family Care: No Living arrangements: with family Occupation/Education: retired Additional occupation/education comments: office work. Gender identity (if verbalized by the patient): Female Spiritual care concerns: No Comments At time of signature, I have reviewed and agree with nursing past medical, surgical, social and family history unless otherwise noted. Please see nursing chart for further information. There is no relevant family history pertinent to the presenting complaint Exam Narrative: GENERAL: Well-appearing, well-nourished, and in no acute distress. HEAD: Normocephalic, atraumatic. EYES: EOMI. No redness or drainage. Conjunctivae normal. ENT: Mucous membranes pink and moist. Bilateral cerumen impactions. See procedure note NECK: Normal AROM. CHEST: No respiratory distress. EXTREMITIES: Normal range of motion. No edema. SKIN: Warm, dry, no rash. Capillary refill normal. Normal skin turgor. NEURO: No focal deficits. Alert and oriented x3. Gait steady. PSYCH: Normal affect. No signs of depression or anxiety. Course Course Level of Care: Express Care Visit Vital Signs Vital signs: Vital Signs Temperature 97.3 F L 12/04/24 14:39 Pulse Rate 12/04/24 14:39 Respiratory Rate 12/04/24 14:39 Blood Pressure 144/61 H 12/04/24 14:39 Pulse Oximetry 98 12/04/24 14:39 Oxygen Delivery Room Air 12/04/24 14:39 Temperature 97.3 F L 12/04/24 14:39 Pulse Rate 12/04/24 14:39 Respiratory Rate 18 12/04/24 14:39 Blood Pressure 144/61 H 12/04/24 14:39 Pulse Oximetry 98 12/04/24 14:39 Oxygen Delivery Room Air 12/04/24 14:39 Reviewed Procedures Ear Wax Removal Both Ears: Ear Wax Removal Date: 12/04/24 Ear Wax Removal Time: 15:15 Cerumenolytic Used: other (Water and peroxide) Results: Re-examined: cerumen removed completely TM Examination: TM(s) intact, normal appearance Ear Canal Exam: atraumatic Patient Tolerated Procedure: well Complications: no problems Technique: ear canal irrigated and ear canal curetted Medical Decision Making MDM Narrative Medical decision making narrative: Successful bilateral cerumen disimpaction. TMs appear normal. Canals normal. No prescriptions indicated at this time lateral Differential Diagnosis Differential Diagnosis: Otitis media, otitis externa, ruptured TM, serous otitis, cerumen impaction Vital Signs Vital Signs: Vital Signs Temperature 97.3 F L 12/04/24 14:39 Pulse Rate 12/04/24 14:39 Respiratory Rate 18 12/04/24 14:39 Blood Pressure 144/61 H 12/04/24 14:39 Pulse Oximetry 98 12/04/24 14:39 Oxygen Delivery Room Air 12/04/24 14:39 Temperature 97.3 F L 12/04/24 14:39 Pulse Rate 71 12/04/24 14:39 Respiratory Rate 18 12/04/24 14:39 Blood Pressure 144/61 H 12/04/24 14:39 Pulse Oximetry 98 12/04/24 14:39 Oxygen Delivery Room Air 12/04/24 14:39 Critical Care Time Critical Care Time Critical Care Time: No Discharge Plan Discharge Clinical Impression: Bilateral impacted cerumen Patient Disposition: Home Condition: Stable Additional Instructions: Ear wax has been removed from both of your ear canal. Follow-up with your PCP or ENT for any additional concerns. Your blood pressure was elevated above 120/80 today at Urgent Care. This puts you above the threshold for follow up. Please schedule a followup visit with your personal physician as soon as possible, for further evaluation and treatment. Even blood pressure exceeding 120/80 may indicate pre-hypertension. Patient Language: Occitan Prescriptions: No Action metoprolol tartrate 75 mg tablet 100 mg PO Q12H Rx Instructions: Takes 100mg BID clobetasol 0.05 % cream 1 applic topical BID Qty: 30 0RF tramadol 50 mg tablet 50 mg PO Q8H PRN (Reason: pain) Qty: 60 0RF cyclobenzaprine 10 mg tablet 10 mg PO TID PRN (Reason: muscle spasm) Qty: 30 0RF cholecalciferol (vitamin D3) 50 mcg (2,000 unit) tablet 50 mcg PO DAILY losartan 25 mg tablet 25 mg PO DAILY Saccharomyces boulardii [Digest Probiotic (S.boulardii)] 250 mg capsule 5,000 mmu cells PO DAILY amitriptyline 25 mg tablet 25 mg PO QHS Qty: 90 3RF famotidine 40 mg tablet 40 mg PO DAILY Qty: 90 3RF Xarelto 20 mg tablet 20 mg PO QPM coenzyme Q10 [Co Q-10] 400 mg capsule 400 mg PO DAILY hydrocortisone [Anusol-HC] 2.5 % cream with perineal applicator 1 applic RECTAL DAILY PRN (Reason: hemorrhoids) Qty: 30 0RF dicyclomine 20 mg tablet 20 mg PO BID Qty: 180 0RF atorvastatin 40 mg tablet 40 mg PO DAILY Qty: 90 1RF Follow-up/Referrals: Anup Ruelas MD [Primary Care Provider] - Time of Disposition: 15:16
== END 2024-12-04 15:18 | disposition home or self-care (01) ==
PROVIDERS: Emergency Provider Nurse Practitioner; PCP Family Medicine
DX: H61.23 Impacted cerumen, bilateral (principal); I48.91 Unspecified atrial fibrillation; E78.2 Mixed hyperlipidemia; I10 Essential (primary) hypertension
CPT/HCPCS: 69210; 99212; A9270; G0463

== ENCOUNTER 2025-01-29 14:45 | Outpatient (CLI) | payer MEDICARE, SELFPAY ==
--- NOTE | ~2025-01-29 | MM_ITS ---
EXAMINATION: MM screening raheem BI w dulce HISTORY: Screening mammogram, family history of breast cancer in her sister. TECHNIQUE: Craniocaudal and mediolateral oblique 3-D tomosynthesis images were obtained and synthetic 2-D images were generated. CAD analysis was submitted and interpreted. COMPARISON: 01/03/2024, 11/02/2022, 09/02/2021, 07/25/2020 BREAST PARENCHYMAL COMPOSITION:Not Dense. There are scattered areas of fibroglandular density. FINDINGS: No suspicious mass, calcification, or architectural distortion are identified in either breast to suggest malignancy. There has been no suspicious interval change. IMPRESSION: No mammographic evidence of malignancy. Recommend routine screening mammography in one year. BI-RADS Category 1: Negative Reviewed, dictated and finalized at [facility].
--- OUTSIDE RECORDS SUMMARY | 2025-01-29 15:45 | XMS_ITS | Encounter Summary ---
Author Organization [facility] Healthcare Address [address] [place] [address] Care Team Providers Care Assembler Wet Wash Name Role Phone Penny Bernal MD Primary Care Provider + Reason for Visit * Diagnostic Imaging (Routine) - Closed Specialty Diagnoses / Procedures Referred By Contac t Referred To Contact Procedures Breast Imaging Screening Outside Reference Adriana Joseph MD PhD [address] [facility] [address] [id number] [place] [address] Phone: tel: fax: Referral ID Status Reason Start Date Expiration Date Visits Re quested Visits Authorized [id number] Closed 10/27/2021 11/26/2022 1 1 Encounter Details Date Type Department Care Team (Late st Contact Info) Description 06/03/2016 12:05 AM PRISON WARDEN Hospital Encounter [facility] ([facility]) [address] [place] [address] Social History Tobacco Use Types Packs/Day Years Used Date Smoking Tobacco: Never Smokeless Tobacco: Never Alcohol Use Standard Drinks/Week Comments Yes 0 (1 standard drink = 0.6 oz pur e alcohol) rarely Comments Unknown Sex and Gender Information Value Date Recorded Sex Assigned at Not on file Legal Sex Female 3:22 PM PRISON WARDEN Gender Identity Not on file Sexual Orientation Not on file documented as of this encounter Plan of Treatment Not on file documented as of this encounter Procedures Procedure Name Priority Date/Time Associated Diagnosis Comments BREAST IMAGING MG SCREENING OUTSIDE REFERENCE Routine 06/03/2016 12:05 AM PRISON WARDEN documented in this encounter Results * Breast Imaging Screening Outside Reference (06/03/2016 12:05 AM PRISON WARDEN) Impressions [facility] - 10/27/2021 10:35 AM CDT [...] on filedocumented in this encounter Care Teams Assembler Wet Wash Relationship Specialty Start Date End Date Penny Bernal MD [address] [place] [address] PCP - General 08/23/10 01/13/18 documented as of this encounter
--- OUTSIDE RECORDS SUMMARY | 2025-01-29 15:45 | XMS_ITS | Encounter Summary ---
Author Organization [facility] Healthcare Address [address] [place] [address] Care Team Providers Care Bicycle Rental Clerk Name Role Phone Penny Bernal MD Primary Care Provider + Reason for Visit * Diagnostic Imaging (Routine) - Closed Specialty Diagnoses / Procedures Referred By Contac t Referred To Contact Procedures Breast Imaging Screening Outside Reference Adriana Joseph MD PhD [address] [id number] [place] [address] Phone: tel: fax: Referral ID Status Reason Start Date Expiration Date Visits Re quested Visits Authorized [id number] Closed 10/27/2021 11/26/2022 1 1 Encounter Details Date Type Department Care Team (Late st Contact Info) Description 06/03/2016 Hospital Encounter [facility] ([facility]) [address] [place] [address] Social History Tobacco Use Types Packs/Day Years Used Date Smoking Tobacco: Never Smokeless Tobacco: Never Alcohol Use Standard Drinks/Week Comments Yes 0 (1 standard drink = 0.6 oz pur e alcohol) rarely Comments Unknown Sex and Gender Information Value Date Recorded Sex Assigned at Not on file Legal Sex Female 3:22 PM RETORT SETTER Gender Identity Not on file Sexual Orientation Not on file documented as of this encounter Plan of Treatment Not on file documented as of this encounter Procedures Procedure Name Priority Date/Time Associated Diagnosis Comments BREAST IMAGING MG SCREENING OUTSIDE REFERENCE Routine 06/03/2016 12:00 AM RETORT SETTER documented in this encounter Results * Breast Imaging Screening Outside Reference (06/03/2016 12:00 AM RETORT SETTER) Impressions [facility] - 10/27/2021 10:35 AM CDT These images are for Reference purposes only and have not been reviewed by [facility] Radiology. There will be no report generated by a [facility] Radiologist. Narrative [facility] - 10/27/2021 10:35 AM CDT EXAMINATION: Images For Reference Purposes Only us Adriana Joseph MD PhD IMG MAMMO PROCEDURES Final Result [facility] documented in this encounter Visit Diagnoses Not on filedocumented in this encounter Care Teams Bicycle Rental Clerk Relationship Specialty Start Date End Date Penny Bernal MD [address] [place] [address] PCP - General 08/23/10 01/13/18 documented as of this encounter
--- OUTSIDE RECORDS SUMMARY | 2025-01-29 15:45 | XMS_ITS | Encounter Summary ---
Author Organization [facility] Healthcare Address [address] [place] [address] Care Team Providers Care Conveyor Line Bakery Worker Name Role Phone Tom Case MD Primary Care Provider [phone] Reason for Visit * Diagnostic Imaging (Routine) - Closed Specialty Diagnoses / Procedures Referred By Contac t Referred To Contact Procedures Breast Imaging Screening Outside Reference Adriana Joseph MD PhD [address] [phone] [place] [address] Phone: tel: fax: Referral ID Status Reason Start Date Expiration Date Visits Re quested Visits Authorized [id number] Closed 10/27/2021 11/26/2022 1 1 Encounter Details Date Type Department Care Team (Late st Contact Info) Description 07/20/2019 Hospital Encounter [facility]) [address] [place] [address] Social History Tobacco Use Types Packs/Day Years Used Date Smoking Tobacco: Never Smokeless Tobacco: Never Alcohol Use Standard Drinks/Week Comments Yes 0 (1 standard drink = 0.6 oz pur e alcohol) rarely Comments Unknown Sex and Gender Information Value Date Recorded Sex Assigned at Not on file Legal Sex Female 3:22 PM EMPLOYMENT COORDINATOR Gender Identity Not on file Sexual Orientation Not on file documented as of this encounter Plan of Treatment Not on file documented as of this encounter Procedures Procedure Name Priority Date/Time Associated Diagnosis Comments BREAST IMAGING MG SCREENING OUTSIDE REFERENCE Routine 07/20/2019 12:00 AM EMPLOYMENT COORDINATOR documented in this encounter Results * Breast Imaging Screening Outside Reference (07/20/2019 12:00 AM EMPLOYMENT COORDINATOR) Impressions [facility] - 10/27/2021 10:34 AM CDT These images are for Reference purposes only and have not been reviewed by [facility] Radiology. There will be no report generated by a [facility] Radiologist. Narrative [facility] - 10/27/2021 10:34 AM CDT EXAMINATION: Images For Reference Purposes Only us Adriana Joseph MD PhD IMG MAMMO PROCEDURES Final Result [facility] documented in this encounter Visit Diagnoses Not on filedocumented in this encounter Care Teams Conveyor Line Bakery Worker Relationship Specialty Start Date End Date Tom Case MD [address] [place] [address] PCP - General Internal Medicine 01/14/18 01/26/22 documented as of this encounter
--- OUTSIDE RECORDS SUMMARY | 2025-01-29 15:45 | XMS_ITS | Encounter Summary ---
Author Organization [facility] Healthcare Address [address] [place] [address] Care Team Providers Care Supervisory Geographer Name Role Phone Penny Bernal MD Primary Care Provider + Reason for Visit * Diagnostic Imaging (Routine) - Closed Specialty Diagnoses / Procedures Referred By Contac t Referred To Contact Procedures Breast Imaging Screening Outside Reference Adriana Joseph MD PhD [address] [facility] [address] [phone] [place] [address] Phone: tel: fax: Referral ID Status Reason Start Date Expiration Date Visits Re quested Visits Authorized [id number] Closed 10/27/2021 11/26/2022 1 1 Encounter Details Date Type Department Care Team (Late st Contact Info) Description 06/10/[address] [facility]) [address] [place] [address] Social History Tobacco Use Types Packs/Day Years Used Date Smoking Tobacco: Never Smokeless Tobacco: Never Alcohol Use Standard Drinks/Week Comments Yes 0 (1 standard drink = 0.6 oz pur e alcohol) rarely Comments Unknown Sex and Gender Information Value Date Recorded Sex Assigned at Not on file Legal Sex Female 3:22 PM CUSTOMER RESOURCE SPECIALIST Gender Identity Not on file Sexual Orientation Not on file documented as of this encounter Plan of Treatment Not on file documented as of this encounter Procedures Procedure Name Priority Date/Time Associated Diagnosis Comments BREAST IMAGING MG SCREENING OUTSIDE REFERENCE Routine 06/10/2017 12:00 AM CUSTOMER RESOURCE SPECIALIST documented in this encounter Results * Breast Imaging Screening Outside Reference (06/10/2017 12:00 AM CUSTOMER RESOURCE SPECIALIST) Impressions [facility] - 10/27/2021 10:35 AM CDT These images are for Reference purposes only and have not been reviewed by [facility] Radiology. There will be no report generated by a [facility] Radiologist. Narrative [facility] - 10/27/2021 10:35 AM CDT EXAMINATION: Images For Reference Purposes Only us Adriana Joseph MD PhD IMG MAMMO PROCEDURES Final Result [facility] documented in this encounter Visit Diagnoses Not on filedocumented in this encounter Care Teams Supervisory Geographer Relationship Specialty Start Date End Date Penny Bernal MD [address] [place] [address] PCP - General 08/23/10 01/13/18 documented as of this encounter
--- OUTSIDE RECORDS SUMMARY | 2025-01-29 15:45 | XMS_ITS | Encounter Summary ---
Author Organization [facility] Address [address] [facility] [address] [place] [address] Care Team Providers Care Cane Weigher Helper Name Role Phone Penny Bernal MD Primary Care Provider + Tom Case MD Primary Care Provider [phone] Navin Barger MD Primary Care Provider [phone] Anup Ruelas MD Primary Care Provider + [phone] Encounter Details Date Type Department Care Team (Late st Contact Info) Description 03/30/2012 [place] Only [facility] [address] [place] [address] Scanning, Provider Social History Tobacco Use Types Packs/Day Years Used Date Smoking Tobacco: Never Assessed Comments Unknown Sex and Gender Information Value Date Recorded Sex Assigned at Not on file Legal Sex Female 3:22 PM DESIGN/ANIMATION INSTRUCTOR Gender Identity Not on file Sexual Orientation [...] on filedocumented in this encounter Care Teams Cane Weigher Helper Relationship Specialty Start Date End Date Penny Bernal MD [address] [place] [address] PCP - General 08/23/10 01/13/18 Tom Case MD [address] [facility] [address] [facility] [address] [place] [address] PCP - General Internal Medicine 01/14/18 01/26/22 Navin Barger MD [address] [id number] PCP - General Family Medicine 01/27/22 09/07/22 Anup Ruelas MD [employer] [address] [address] PCP - General Family Medicine 09/08/22 documented as of this encounter
--- OUTSIDE RECORDS SUMMARY | 2025-01-29 15:45 | XMS_ITS | Encounter Summary ---
Author Organization [facility] Healthcare Address [address] [place] [address] Care Team Providers Care Surgery Attendant Name Role Phone Tom Case MD Primary Care Provider Reason for Visit * Diagnostic Imaging (Routine) - Closed Specialty Diagnoses / Procedures Referred By Contac t Referred To Contact Procedures Breast Imaging Screening Outside Reference Adriana Joseph MD PhD [address] [phone] [place] [address] Phone: tel: fax: Referral ID Status Reason Start Date Expiration Date Visits Re quested Visits Authorized [id number] Closed 10/27/2021 11/26/2022 1 1 Encounter Details Date Type Department Care Team (Late st Contact Info) Description 07/25/2020 Hospital Encounter [facility] [address] [place] [address] Social History Tobacco Use Types Packs/Day Years Used Date Smoking Tobacco: Never Smokeless Tobacco: Never Alcohol Use Standard Drinks/Week Comments Yes 0 (1 standard drink = 0.6 oz pur e alcohol) rarely Comments Unknown Sex and Gender Information Value Date Recorded Sex Assigned at Not on file Legal Sex Female 3:22 PM ASSISTANT STORE LEADER Gender Identity Not on file Sexual Orientation Not on file documented as of this encounter Plan of Treatment Not on file documented as of this encounter Procedures Procedure Name Priority Date/Time Associated Diagnosis Comments BREAST IMAGING MG SCREENING OUTSIDE REFERENCE Routine 07/25/2020 12:00 AM ASSISTANT STORE LEADER documented in this encounter Results * Breast Imaging Screening Outside Reference (07/25/2020 12:00 AM ASSISTANT STORE LEADER) Impressions [facility] - 10/27/2021 10:34 AM CDT These images are for Reference purposes only and have not been reviewed by [facility] Radiology. There will be no report generated by a [facility] Radiologist. Narrative [facility] - 10/27/2021 10:34 AM CDT EXAMINATION: Images For Reference Purposes Only us Adriana Joseph MD PhD IMG MAMMO PROCEDURES Final Result [facility] documented in this encounter Visit Diagnoses Not on filedocumented in this encounter Care Teams Surgery Attendant Relationship Specialty Start Date End Date Tom Case MD [address] [place] [address] PCP - General Internal Medicine 01/14/18 01/26/22 documented as of this encounter
--- OUTSIDE RECORDS SUMMARY | 2025-01-29 15:45 | XMS_ITS | Clinical Summary ---
Author Organization [facility] [address] Address [address] [place] [address] Care Team Providers Care Virtualization Architect Name Role Phone Anup Ruelas MD Primary Care Provider [phone] Allergies Active Allergy Reactions Criticality Noted Date Comments Cephalexin Nausea only Low Codeine Nausea only Low Dexlansoprazole Unknown 07/21/2021 Levofloxacin Nausea only Low Metronidazole Nausea only Low Esomeprazole Hives Medium 01/31/2019 Niacin Cough Low 07/09/2020 Pseudoephedrine Other (See comments) Low 07/09/2020 Medications bacillus-proteas z-rmctvd-gnshg (DIGESTIVE ADVANTAGE INTENS BOW) 1 billion cell- 30,000 unit capsule take one daily 0 0 06/10/20 16 Active cholecalciferol (VITAMIN D3) 1,000 unit capsule take 1 by Oral route once 0 0 06/10/20 16 Active coenzyme Q10 (CO Q-10) 400 mg capsule take one daily 0 0 06/10/20 16 Active vitamin A-vitamin C-vit E-min tablet Take by mouth daily EYE PROMISE ([employer] Multispan) Active dicyclomine (BENTYL) 20 mg tablet Take 1 tablet (20 mg total) by mouth 2 (two) times a day 06/03/20 20 Active losartan (COZAAR) 25 mg tabletIndication s:Essential hypertension Take 1 tablet (25 mg total) by mouth daily 90 tablet 3 02/22/20 24 025 Active atorvastatin (LIPITOR) 40 mg tablet Take 1 tablet (40 mg total) by mouth daily 04/27/20 24 Active amitriptyline (ELAVIL) 25 mg tablet Take 1 tablet (25 mg total) by mouth nightly at bedtime 02/23/20 24 Active Xarelto 20 mg tablet TAKE 1 TABLET BY MOUTH EVERY DAY 90 tablet 1 10/03/19 25 Active famotidine (PEPCID) 40 mg tablet Take 1 tablet (40 mg total) by mouth daily 10/24/19 25 Active traMADoL (ULTRAM) 50 mg tablet every 6 (six) hours as needed 10/13/19 25 Active cyclobenzaprine (FLEXERIL) 10 mg tablet Take 1 tablet (10 mg total) by mouth as needed 10/13/19 25 Active metoprolol (LOPRESSOR) 100 mg tabletIndication s:Paroxysmal atrial flutter (HCC) TAKE 1 TABLET BY MOUTH TWICE A DAY 180 tablet 2 01/18/20 25 Active metoprolol (LOPRESSOR) 100 mg tabletIndication s:Paroxysmal atrial flutter (HCC) Take 1 tablet (100 mg total) by mouth 2 (two) times a day 180 tablet 2 04/28/20 24 025 Discontinued Active Problems Problem Noted [...] a associated with type 2 diabetes mellitus ([facility]) 03/17/2016 Overview (09/18/2016): Type 2 diabetes mellitus with complication, without long-term current use of insulin Rapid palpitations 03/17/2016 Overview (09/18/2016): Rapid palpitations Hypertension associated with diabetes 03/17/2016 Overview (09/18/2016): HTN (hypertension), benign Resolved Problems Problem Noted Date Diagnosed Date Resolved Date Dyslipidemia 03/17/2016 01/27/2022 Overview (09/16/2016): Dyslipidemia Encounters Date Type Department Care Team Description 11/30/2024 9:30 AM CDT Office Visit [facility] [address] [place] [address] Erlinda Kim NP Paroxysmal atrial flutter (HCC) (Primary Dx); Chronic anticoagulation; Premature atrial contractions; Symptomatic PVCs; Essential hypertension from Last 3 Months Immunizations Immunization Administration [...] file 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 Gender Identity Not on file Sexual Orientation Not on file Obstetrics History Last Filed Vital Signs Vital Sign Reading Time Taken Comments Blood Pressure 114/70 11/30/2024 9:30 AM CDT Pulse 60 11/30/2024 9:30 AM CDT Temperature 36.6 C (97.9 F) 11/11/2021 10:43 AM CDT Respiratory Rate 16 02/16/2023 9:10 AM CDT Oxygen Saturation 98% 11/30/2024 9:30 AM CDT Inhaled Oxygen Concentration - - Weight 98.9 kg (218 lb) 11/30/2024 9:30 AM CDT Height 160 cm (5' 3) 11/30/2024 9:30 AM CDT Body Mass Index 38.62 11/30/2024 9:30 AM CDT Plan of Treatment Health Maintenance Due Date [...] 07/16, 05/05/2021, Additional history exists Influenza Vaccine (#1) 2025 , 03/09/2019, 03/14/2018, Additional history exists Pneumococcal vaccine [...] to Health Maintenance Insurance [employer] MEDICARE ADVANTAGE [facility] [place] [address] [facility] [place] [address] Care Teams Virtualization Architect Relationship Specialty Start Date End Date Anup Ruelas MD PCP - General Family Medicine 09/08/22
--- OUTSIDE RECORDS SUMMARY | 2025-01-29 15:45 | XMS_ITS | Encounter Summary ---
Author Organization [facility] Healthcare Address [address] [place] [address] Care Team Providers Care Copper Flotation Operator Name Role Phone Tom Case MD Primary Care Provider [phone] Reason for Visit * Diagnostic Imaging (Routine) - Closed Specialty Diagnoses / Procedures Referred By Contac t Referred To Contact Procedures Breast Imaging Screening Outside Reference Adriana Joseph MD PhD [id number] [place] [address] Phone: tel: fax: Referral ID Status Reason Start Date Expiration Date Visits Re quested Visits Authorized [id number] Closed 10/27/2021 11/26/2022 1 1 Encounter Details Date Type Department Care Team (Late st Contact Info) Description 06/15/2018 Hospital Encounter [facility] [address] [place] [address] Social History Tobacco Use Types Packs/Day Years Used Date Smoking Tobacco: Never Smokeless Tobacco: Never Alcohol Use Standard Drinks/Week Comments Yes 0 (1 standard drink = 0.6 oz pur e alcohol) rarely Comments Unknown Sex and Gender Information Value Date Recorded Sex Assigned at Not on file 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 Gender Identity Not on file Sexual Orientation Not on file documented as of this encounter Plan of Treatment Not on file documented as of this encounter Procedures Procedure Name Priority Date/Time Associated Diagnosis Comments BREAST IMAGING MG SCREENING OUTSIDE REFERENCE Routine 06/15/2018 12:00 AM ACCOUNT EXECUTIVE documented in this encounter Results * Breast Imaging Screening Outside Reference (06/15/2018 12:00 AM ACCOUNT EXECUTIVE) Impressions [facility] - 10/27/2021 10:34 AM CDT These images are for Reference purposes only and have not been reviewed by [facility] Radiology. There will be no report generated by a [facility] Radiologist. Narrative [facility] - 10/27/2021 10:34 AM CDT EXAMINATION: Images For Reference Purposes Only us Adriana Joseph MD PhD IMG MAMMO PROCEDURES Final Result [facility] documented in this encounter Visit Diagnoses Not on filedocumented in this encounter Care Teams Copper Flotation Operator Relationship Specialty Start Date End Date Tom Case MD [address] [place] [address] PCP - General Internal Medicine 01/14/18 01/26/22 documented as of this encounter
--- OUTSIDE RECORDS SUMMARY | 2025-01-29 15:45 | XMS_ITS | Encounter Summary ---
Author Organization [facility] Healthcare Address [address] [place] [address] Care Team Providers Care Investigator Name Role Phone Tom Case MD Primary Care Provider [phone] Reason for Visit * Diagnostic Imaging (Routine) - Closed Specialty Diagnoses / Procedures Referred By Contac t Referred To Contact Procedures Breast Imaging US Outside Reference Adriana Joseph MD PhD [address] [id number] [place] [address] Phone: tel: fax: Referral ID Status Reason Start Date Expiration Date Visits Re quested Visits Authorized [id number] Closed 10/27/2021 11/26/2022 1 1 Encounter Details Date Type Department Care Team (Late st Contact Info) Description 08/20/2020 Hospital Encounter [facility] [address] [place] [address] Social History Tobacco Use Types Packs/Day Years Used Date Smoking Tobacco: Never Smokeless Tobacco: Never Alcohol Use Standard Drinks/Week Comments Yes 0 (1 standard drink = 0.6 oz pur e alcohol) rarely Comments Unknown Sex and Gender Information Value Date Recorded Sex Assigned at Not on file 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 There will be no report generated by a [facility] Radiologist. Narrative [facility] - 10/27/2021 10:33 AM CDT EXAMINATION: Images For Reference Purposes Only us Adriana Joseph MD PhD IMG MAMMO PROCEDURES Final Result [facility] documented in this encounter Visit Diagnoses Not on filedocumented in this encounter Care Teams Investigator Relationship Specialty Start Date End Date Tom Case MD [address] [place] [address] PCP - General Internal Medicine 01/14/18 01/26/22 documented as of this encounter
--- OUTSIDE RECORDS SUMMARY | 2025-01-29 15:45 | XMS_ITS | Encounter Summary ---
Author Organization [facility] Healthcare Address [address] [place] [address] Care Team Providers Care Veterinarian Assistant Name Role Phone Tom Case MD Primary Care Provider [phone] Reason for Visit * Diagnostic Imaging (Routine) - Closed Specialty Diagnoses / Procedures Referred By Contac t Referred To Contact Procedures Breast Imaging Diagnostic Outside Reference Adriana Joseph MD PhD [id number] [place] [address] Phone: tel: fax: Referral ID Status Reason Start Date Expiration Date Visits Re quested Visits Authorized [id number] Closed 10/27/2021 11/26/2022 1 1 Encounter Details Date Type Department Care Team (Late st Contact Info) Description 08/20/2020 12:05 AM AUTOMATIC SHIRRING MACHINE OPERATOR Hospital Encounter [facility] [address] [place] [address] Social History Tobacco Use Types Packs/Day Years Used Date Smoking Tobacco: Never Smokeless Tobacco: Never Alcohol Use Standard Drinks/Week Comments Yes 0 (1 standard drink = 0.6 oz pur e alcohol) rarely Comments Unknown Sex and Gender Information Value Date Recorded Sex Assigned at Not on file 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 Gender Identity Not on file Sexual Orientation Not on file documented as of this encounter Plan of Treatment Not on file documented as of this encounter Procedures Procedure Name Priority Date/Time Associated Diagnosis Comments BREAST IMAGING MG DIAGNOSTIC OUTSIDE REFERENCE Routine 08/20/2020 12:05 AM AUTOMATIC SHIRRING MACHINE OPERATOR documented in this encounter Results * Breast Imaging Diagnostic Outside Reference (08/20/2020 12:05 AM AUTOMATIC SHIRRING MACHINE OPERATOR) Impressions [facility] - 10/27/2021 10:35 AM CDT These images are for Reference purposes only and have not been reviewed by [facility] Radiology. There will be no report generated by a [facility] Radiologist. Narrative [facility] - 10/27/2021 10:35 AM CDT EXAMINATION: Images For Reference Purposes Only us Adriana Joseph MD PhD IMG MAMMO PROCEDURES Final Result [facility] documented in this encounter Visit Diagnoses Not on filedocumented in this encounter Care Teams Veterinarian Assistant Relationship Specialty Start Date End Date Tom Case MD [address] [place], [place] [id number] PCP - General Internal Medicine 01/14/18 01/26/22 documented as of this encounter
== END 2025-01-29 14:46 | disposition home or self-care (01) ==
PROVIDERS: PCP Family Medicine; Visit Provider Family Medicine
DX: Z12.31 Encounter for screening mammogram for malignant neoplasm of breast (principal)
CPT/HCPCS: 77063; 77067

== ENCOUNTER 2025-02-01 07:31 | Outpatient (CLI) | payer MEDICARE, SELFPAY ==
[2025-02-01 08:01] LABS: Hematocrit 43.0 % (37.0-47.0); Hemoglobin 14.2 g/dL (12.0-15.0); Immature Granulocyte Percent A 0.3 % (0-0.5); Lymphocytes Absolute Auto 1.67 K/mm3 (0.9-3.2); Mean Corpuscular HGB Conc 33.0 g/dl (32-36); Mean Corpuscular Hemoglobin 29.7 pg (26-34); Mean Corpuscular Volume 90.0 fl (80-100); Nucleated Red Blood Cells Absolute Auto 0.000 K/mm3 (0.0-0.012); Nucleated Red Blood Cells Perc 0.0 % (0.0-0.2); Platelet Count Result 218 k/mm3 (150-375); Red Blood Count 4.78 M/mm3 (4.2-5.4); White Blood Count 5.9 K/mm3 (4.5-10.0)
[2025-02-01 08:06] LABS: Hemoglobin A1C 6.5 % (<5.7)
[2025-02-01 08:25] LABS: Alanine Aminotransferase 29 U/L (6-35); Albumin Level 3.9 g/dL (3.5-5.1); Alkaline Phosphatase 64 U/L (38-126); Anion Gap 7 mmol/L (4-12); Aspartate Amino Transferase 33 U/L (14-36); Bilirubin,Total 0.7 mg/dL (0.2-1.3); Blood Urea Nitrogen 13 mg/dL (7-17); Calcium 9.1 mg/dL (8.4-10.2); Carbon Dioxide 26 mmol/L (22-30); Chloride 105 mmol/L (98-107); Cholesterol 137 mg/dL (0-200); Estimated Glomerular Filt Rate > 60; Glucose 149 mg/dL (65-110); HDL Direct 46 mg/dL; Potassium 4.1 mmol/L (3.4-5.0); Sodium 138 mmol/L (137-145); Total Protein 6.9 g/dL (6.3-8.2); Triglycerides 194 mg/dL (<150)
[2025-02-01 09:30] LABS: MALB Creatinine Ratio 14.9 mg/g (0-30)
[2025-02-01 14:56] LABS: Add Urine Microscopic? YES; Appearance Urine Cloudy (Clear); Glucose Urine UA Negative (Negative); Leukocyte Esterase Ur 3+ LEU/UL (Negative); Nitrate Urine Negative (Negative); Non Pathogenic Casts 0-2; Specific Grav Ur 1.011 (1.001-1.035)
== END 2025-02-01 07:32 | disposition home or self-care (01) ==
LOC: ANHLAB 07:33
PROVIDERS: PCP Family Medicine; Visit Provider Family Medicine
DX: I10 Essential (primary) hypertension (principal); E78.2 Mixed hyperlipidemia; Z13.220 Encounter for screening for lipoid disorders; E11.9 Type 2 diabetes mellitus without complications; E55.9 Vitamin D deficiency, unspecified; R82.998 Other abnormal findings in urine
CPT/HCPCS: 36415; 80048; 80061; 80076; 81001; 82043; 82306; 83036; 85025

== ENCOUNTER 2025-03-29 03:20 | Emergency (ER) | payer MEDICARE, SELFPAY ==
--- NOTE | ~2025-03-29 | CT_ITS ---
EXAMINATION: CT abdomen pelvis wo/w con DATE: 03/29/2025 05:10 INDICATION: Hematuria. TECHNIQUE: Computed tomography (CT) of the abdomen and pelvis was performed without and with intravenous contrast using a total of 130 mL Omnipaque-350 intravenous contrast with a double-bolus technique for simultaneous opacification of the renal parenchyma and renal collecting system. Automated exposure control and iterative reconstruction technique were employed. The dose- length product was 2515.98 mGy-cm. COMPARISON: CT abdomen and pelvis 02/23/2023 FINDINGS: The visualized portions of the lung bases demonstrate mild atelectasis and mild chronic lung disease. No pleural effusion. The heart size is normal. There are coronary artery calcifications. No pericardial effusion. There is a small sliding hernia. There is mild intrahepatic biliary duct dilatation. The common duct is dilated to 16 mm and measured 13 mm on 02/23/2023, likely not clinically significant given the normal liver function tests. There are changes of cholecystectomy. The spleen, pancreas, and adrenal glands are normal. There is cortical thinning of the kidneys. There is no urolithiasis. The ureters are well opacified and are normal. There is diverticulosis of the colon without evidence of diverticulitis. There are no dilated loops of bowel. The appendix is not visualized. There is diffuse wall thickening of the bladder. There are no pathologically enlarged lymph nodes. There is no free intraperitoneal fluid. There is severe lumbar spondylosis. IMPRESSION: 1. Diffuse bladder wall thickening, consistent with cystitis. Reviewed, dictated and finalized at location E.
[2025-03-29 03:20] VITALS: BP 152/74; PULSE 66; RESP 14; TEMP 36.4; O2SAT 97
[2025-03-29 03:51] LABS: Add Urine Microscopic? YES; Appearance Urine Turbid (Clear); Glucose Urine UA Negative (Negative); Leukocyte Esterase Ur 3+ LEU/UL (Negative); Nitrate Urine Positive (Negative); Specific Grav Ur 1.008 (1.001-1.035)
[2025-03-29] MEDS: MORPHINE SULFATE (*CRX) 4 MG/ML INJ 2 MG IV PUSH (04:07)
[2025-03-29] MEDS: SODIUM CHLORIDE 0.9% IV 1,000 ML 999 ML IV CONT (04:07)
[2025-03-29] MEDS: ONDANSETRON INJ 4 MG/2 ML VIAL IV PUSH (04:08)
[2025-03-29 04:12] LABS: Hematocrit 41.6 % (37.0-47.0); Hemoglobin 14.0 g/dL (12.0-15.0); Immature Granulocyte Percent A 0.4 % (0-0.5); Lymphocytes Absolute Auto 2.04 K/mm3 (0.9-3.2); Mean Corpuscular HGB Conc 33.7 g/dl (32-36); Mean Corpuscular Hemoglobin 29.5 pg (26-34); Mean Corpuscular Volume 87.6 fl (80-100); Nucleated Red Blood Cells Absolute Auto 0.000 K/mm3 (0.0-0.012); Nucleated Red Blood Cells Perc 0.0 % (0.0-0.2); Platelet Count Result 208 k/mm3 (150-375); Red Blood Count 4.75 M/mm3 (4.2-5.4); White Blood Count 7.2 K/mm3 (4.5-10.0)
[2025-03-29 04:25] LABS: Alanine Aminotransferase 23 U/L (6-35); Albumin Level 4.0 g/dL (3.5-5.1); Alkaline Phosphatase 76 U/L (38-126); Anion Gap 7 mmol/L (4-12); Aspartate Amino Transferase 31 U/L (14-36); Bilirubin,Total 1.1 mg/dL (0.2-1.3); Blood Urea Nitrogen 13 mg/dL (7-17); Calcium 9.0 mg/dL (8.4-10.2); Carbon Dioxide 27 mmol/L (22-30); Chloride 102 mmol/L (98-107); Estimated CRCL calculation 62 ml/min; Estimated Glomerular Filt Rate > 60; Glucose 150 mg/dL (65-110); Potassium 3.7 mmol/L (3.4-5.0); Sodium 136 mmol/L (137-145); Total Protein 7.3 g/dL (6.3-8.2)
--- NOTE | 2025-03-29 04:52 | ED_ITS ---
HPI - General Adult General Chief complaint: Urogenital-Female <Brady Garvey MD - Last Filed: 03/29/25 04:53> Stated complaint: urinary problem <Brady Garvey MD - Last Filed: 03/29/25 04:53> Time Seen by Provider: 03/29/25 03:47 <Brady Garvey MD - Last Filed: 03/29/25 04:53> History of Present Illness HPI narrative: Patient 85-year-old female who presents emergency department with chief complaint of lower abdominal pain hematuria and urinary frequency and discomfort. Patient reports that she was recently treated for UTI but had a negative urine culture and discontinue the antibiotics patient states that she has had blood in her urine reports that she does have history AFib and is on anticoagulant <Brady Garvey MD - Last Filed: 03/29/25 04:53> Related Data Home medications: Home Medications ?Medication ?Instructions ?Recorded ?Confirmed ?Last Taken ?Type coenzyme Q10 400 mg capsule (Co 400 mg PO DAILY 03/26/25 1 Day Ago History Q-10) ~04/14/22 rivaroxaban 20 mg tablet (Xarelto) 20 mg PO QPM 03/26/25 1 Day Ago History ~04/14/22 cholecalciferol (vitamin D3) 50 50 mcg PO DAILY 03/26/25 1 Day Ago History mcg (2,000 unit) tablet ~04/14/22 Saccharomyces boulardii 250 mg 5,000 mmu cells PO SHEREEN Y 08/06/22 03/26/25 Unknown History capsule (Digest Probiotic (S.boulardii)) losartan 25 mg tablet 25 mg PO DAILY 08/06/2203/14 Unknown History metoprolol tartrate 75 mg tablet 100 mg PO Q12H 03/26/25 Unknown History <Brady Garvey MD - Last Filed: 03/29/25 04:53> Allergies/adverse reactions: Allergies Allergy/AdvReac Type Severity Reaction Status Date / Time No Known Allergies Allergy Verified 03/26/25 08:25 <Brady Garvey MD - Last Filed: 03/29/25 04:53> Review of Systems 2 Review of Systems: A 10 system review of systems was completed on the patient and is negative except for what is stated in the HPI. Nursing and ancillary documentation was reviewed. <Brady Garvey MD - Last Filed: 03/29/25 04:53> FOR[facility], [facility] Past Medical History Medical History: Medical History Cataract of both eyes Chest pain Upper abdominal pain Degenerative disc disease, thoracic Thoracic back pain Elevated glucose BMI 35.0-35.9,adult Sigmoid diverticulitis Atrial fibrillation Abnormal urine Encounter to establish care Irritable bowel syndrome with diarrhea Benign essential hypertension Gastroesophageal reflux disease without esophagitis Mixed hyperlipidemia Paroxysmal atrial flutter <Brady Garvey MD - Last Filed: 03/29/25 04:53> Surgical History Surgical History: Surgical History History of hysterectomy History of knee surgery History of cholecystectomy <Brady Garvey MD - Last Filed: 03/29/25 04:53> Family History Family History: Family History Sibling Family history of malignant neoplasm of breast in first degree relative Family history of heart disease in male family member before age 55 Breast cancer Mother Family history of heart disease in male family member before age 55 Diabetes mellitus Pacemaker A-fib CHF (congestive heart failure) Grandparent Cancer Father Arthritis A-fib Sibling Diabetes mellitus A-fib Other Cerebrovascular accident Family history of arthritis Family history of atrial fibrillation Family history of cardiovascular disease Family history of chronic obstructive pulmonary disease Family history of congestive heart failure Family history of malignant neoplasm of male breast Hypertension <Brady Garvey MD - Last Filed: 03/29/25 04:53> Social History Social History: Social History Smoking status: Never smoker Second hand tobacco smoke exposure: Yes Alcohol intake: current Alcohol use details: rarely Substance use: never Substance use type: does not use Do You Feel Safe in your Home?: Yes Lack of Transportation: No Lack of Food: Never True Current Housing: I Have Housing Concerned About Future Housing: No Difficulty Paying Gas/Electric Bills: No Difficulty Paying for Meds: No Currently Unemployed: No Education: High School Diploma/GED Difficulty w/ Childcare or Family Care: No Living arrangements: with family Occupation/Education: retired Additional occupation/education comments: office work. Gender identity (if verbalized by the patient): Female Spiritual care concerns: No <Brady Garvey MD - Last Filed: 03/29/25 04:53> Exam 2 Narrative: GENERAL: Well-appearing, well-nourished, and in no acute distress. HEAD: Normocephalic, atraumatic. EYES: PERRLA and EOMI. ENT: Nares clear, no rhinorrhea or epistaxis. Mucous membranes moist. NECK: Supple. CHEST: Clear to auscultation. No respiratory distress. HEART: Regular rate and rhythm. No murmur heard. Normal peripheral pulses. ABDOMEN: Soft, tenderness to palpation lower quadrants, nondistended, normal active bowel sounds. EXTREMITIES: Normal range of motion. No edema. SKIN: Warm, dry, no rash. NEURO: No focal deficits. Alert and oriented x3. PSYCH: Normal mood and affect. <Brady Garvey MD - Last Filed: 03/29/25 04:53> Course Course Emergency Course: 06:00 - This patient was signed out to me by previous ED physician, Dr. Garvey pending CT. 06:34 - STAT Rad interpretation of CT urogram demonstrates ?no renal obstruction or stone. Heterogenous bladder wall thickening suggesting underlying cystitis. Otherwise no acute intra-abdominal or pelvic findings. ? The most recent urine culture demonstrated no growth on 03/26. Will discharge with Keflex and recommendation for primary care follow-up. I discussed the findings and recommendations with patient. Discussed return and emergency precautions including signs/symptoms of acute abdomen and intractable vomiting. The patient voiced understanding and agreement with the plan. All questions answered to her satisfaction. <Rao Chatterjee MD - Last Filed: 03/29/25 19:50> Vital Signs Vital signs: Vital Signs Temperature 97.6 F 03/29/25 03:20 Pulse Rate 66 03/29/25 03:20 Respiratory Rate 14 03/29/25 03:20 Blood Pressure 152/74 H 03/29/25 03:20 Pulse Oximetry 97 03/29/25 03:20 Oxygen Delivery Room Air 03/29/25 03:20 Temperature 97.6 F 03/29/25 03:20 Pulse Rate 72 03/29/25 07:01 Respiratory Rate 16 03/29/25 07:01 Blood Pressure 140/67 03/29/25 07:01 Pulse Oximetry 95 03/29/25 07:01 Oxygen Delivery Room Air 03/29/25 03:20 <Brady Garvey MD - Last Filed: 03/29/25 04:53> Vital Signs Temperature 97.6 F 03/29/25 03:20 Pulse Rate 66 03/29/25 03:20 Respiratory Rate 14 03/29/25 03:20 Blood Pressure 152/74 H 03/29/25 03:20 Pulse Oximetry 97 03/29/25 03:20 Oxygen Delivery Room Air 03/29/25 03:20 Temperature 97.6 F 03/29/25 03:20 Pulse Rate 72 03/29/25 07:01 Respiratory Rate 16 03/29/25 07:01 Blood Pressure 140/67 03/29/25 07:01 Pulse Oximetry 95 03/29/25 07:01 Oxygen Delivery Room Air 03/29/25 03:20 <Rao Chatterjee MD - Last Filed: 03/29/25 19:50> Medical Decision Making MDM Narrative Medical decision making narrative: Plan: Labs, imaging, reassess <Rao Chatterjee MD - Last Filed: 03/29/25 19:50> Differential Diagnosis Differential Diagnosis: UTI, pyelonephritis, nephrolithiasis, diverticulitis, bowel perforation, bowel obstruction, malignancy, other <Rao Chatterjee MD - Last Filed: 03/29/25 19:50> Vital Signs Vital Signs: Vital Signs Temperature 97.6 F 03/29/25 03:20 Pulse Rate 66 03/29/25 03:20 Respiratory Rate 14 03/29/25 03:20 Blood Pressure 152/74 H 03/29/25 03:20 Pulse Oximetry 97 03/29/25 03:20 Oxygen Delivery Room Air 03/29/25 03:20 Temperature 97.6 F 03/29/25 03:20 Pulse Rate 72 03/29/25 07:01 Respiratory Rate 16 03/29/25 07:01 Blood Pressure 140/67 03/29/25 07:01 Pulse Oximetry 95 03/29/25 07:01 Oxygen Delivery Room Air 03/29/25 03:20 <Brady Garvey MD - Last Filed: 03/29/25 04:53> Vital Signs Temperature 97.6 F 03/29/25 03:20 Pulse Rate 66 03/29/25 03:20 Respiratory Rate 14 03/29/25 03:20 Blood Pressure 152/74 H 03/29/25 03:20 Pulse Oximetry 97 03/29/25 03:20 Oxygen Delivery Room Air 03/29/25 03:20 Temperature 97.6 F 03/29/25 03:20 Pulse Rate 72 03/29/25 07:01 Respiratory Rate 16 03/29/25 07:01 Blood Pressure 140/67 03/29/25 07:01 Pulse Oximetry 95 03/29/25 07:01 Oxygen Delivery Room Air 03/29/25 03:20 <Rao Chatterjee MD - Last Filed: 03/29/25 19:50> Lab Data Result diagrams: 03/29/25 04:06 03/29/25 04:06 <Brady Garvey MD - Last Filed: 03/29/25 04:53> Labs: Lab Results 03/29/25 03/29/25 Range/Units 03:44 04:06 WBC 7.2 (4.5-10.0) K/mm3 RBC 4.75 (4.2-5.4) M/mm3 Hgb 14.0 (12.0-15.0) g/dL Hct 41.6 (37.0-47.0) % MCV 87.6 (80-100) fl MCH 29.5 (26-34) pg MCHC 33.7 (32-36) g/dl RDW 13.2 (11.5-14.5) % Plt Count 208 (150-375) k/mm3 MPV 10.1 (7.4-10.4) fl Immature Gran % (Auto) 0.4 (0-0.5) % Neut % (Auto) 58.8 (45.5-73.1) % Lymph % (Auto) 28.2 (18.3-44.2) % [place] % (Auto) 9.9 H (2.6-8.5) % Eos % (Auto) 2.3 (0-4.4) % Baso % (Auto) 0.4 (0.2-1.2) % Lymph # (Auto) 2.04 (0.9-3.2) K/mm3 [place] # (Auto) 0.7 H (0.1-0.6) K/mm3 Eos # (Auto) 0.2 (0-0.3) K/mm3 Baso # (Auto) 0.0 (0.0-0.1) K/mm3 Abs Immat Gran (auto) 0.03 (0.00-0.031) K/mm3 Absolute Neuts (auto) 4.3 (1.3-6.7) K/mm3 Absolute Nucleated RBC 0.000 (0.0-0.012) K/mm3 Nucleated RBC % 0.0 (0.0-0.2) % Sodium 136 L (137-145) mmol/L Potassium 3.7 (3.4-5.0) mmol/L Chloride 102 (98-107) mmol/L Carbon Dioxide 27 (22-30) mmol/L Anion Gap 7 (4-12) mmol/L BUN 13 (7-17) mg/dL Creatinine 0.68 L (0.7-1.0) mg/dL Estim Creat Clear Calc 62 ml/min Estimated GFR > 60 (59 - ) Glucose 150 H (65-110) mg/dL Calcium 9.0 (8.4-10.2) mg/dL Total Bilirubin 1.1 (0.2-1.3) mg/dL AST 31 (14-36) U/L ALT 23 (6-35) U/L Alkaline Phosphatase 76 (38-126) U/L Total Protein 7.3 (6.3-8.2) g/dL Albumin 4.0 (3.5-5.1) g/dL Urine Color Dark yellow (Yellow) Urine Appearance Turbid H (Clear) Urine pH 6.5 (5.0-9.0) Ur Specific [place] 1.008 (1.001-1.035) Urine Protein 2+ H (Negative) mg/dL Urine Glucose (UA) Negative (Negative) mg/dL Urine Ketones Negative (Negative) mg/dL Ur Blood (Man) 3+ H (Negative) Urine Nitrate Positive H (Negative) Urine Bilirubin Negative (Negative) Urine Urobilinogen 1.0 (<2.0) mg/dL Leukocyte Esterase Rfl 3+ H (Negative) [place]IA [place] CARMEN/UL Urine RBC >100 H (0-2) /hpf Urine WBC >100 H (0-3) /hpf Ur Squamous Epith Cells Occasional (Few) /hpf Urine Bacteria Rare /hpf Urine Casts 3-5 <Brady Garvey MD - Last Filed: 03/29/25 04:53> Lab Results 03/29/25 03/29/25 Range/Units 03:44 04:06 WBC 7.2 (4.5-10.0) K/mm3 RBC 4.75 (4.2-5.4) M/mm3 Hgb 14.0 (12.0-15.0) g/dL Hct 41.6 (37.0-47.0) % MCV 87.6 (80-100) fl MCH 29.5 (26-34) pg MCHC 33.7 (32-36) g/dl RDW 13.2 (11.5-14.5) % Plt Count 208 (150-375) k/mm3 MPV 10.1 (7.4-10.4) fl Immature Gran % (Auto) 0.4 (0-0.5) % Neut % (Auto) 58.8 (45.5-73.1) % Lymph % (Auto) 28.2 (18.3-44.2) % [place] % (Auto) 9.9 H (2.6-8.5) % Eos % (Auto) 2.3 (0-4.4) % Baso % (Auto) 0.4 (0.2-1.2) % Lymph # (Auto) 2.04 (0.9-3.2) K/mm3 [place] # (Auto) 0.7 H (0.1-0.6) K/mm3 Eos # (Auto) 0.2 (0-0.3) K/mm3 Baso # (Auto) 0.0 (0.0-0.1) K/mm3 Abs Immat Gran (auto) 0.03 (0.00-0.031) K/mm3 Absolute Neuts (auto) 4.3 (1.3-6.7) K/mm3 Absolute Nucleated RBC 0.000 (0.0-0.012) K/mm3 Nucleated RBC % 0.0 (0.0-0.2) % Sodium 136 L (137-145) mmol/L Potassium 3.7 (3.4-5.0) mmol/L Chloride 102 (98-107) mmol/L Carbon Dioxide 27 (22-30) mmol/L Anion Gap 7 (4-12) mmol/L BUN 13 (7-17) mg/dL Creatinine 0.68 L (0.7-1.0) mg/dL Estim Creat Clear Calc 62 ml/min Estimated GFR > 60 (59 - ) Glucose 150 H (65-110) mg/dL Calcium 9.0 (8.4-10.2) mg/dL Total Bilirubin 1.1 (0.2-1.3) mg/dL AST 31 (14-36) U/L ALT 23 (6-35) U/L Alkaline Phosphatase 76 (38-126) U/L Total Protein 7.3 (6.3-8.2) g/dL Albumin 4.0 (3.5-5.1) g/dL Urine Color Dark yellow (Yellow) Urine Appearance Turbid H (Clear) Urine pH 6.5 (5.0-9.0) Ur Specific [place] 1.008 (1.001-1.035) Urine Protein 2+ H (Negative) mg/dL Urine Glucose (UA) Negative (Negative) mg/dL Urine Ketones Negative (Negative) mg/dL Ur Blood (Man) 3+ H (Negative) Urine Nitrate Positive H (Negative) Urine Bilirubin Negative (Negative) Urine Urobilinogen 1.0 (<2.0) mg/dL Leukocyte Esterase Rfl 3+ H (Negative) [place] [place] CARMEN/UL Urine RBC >100 H (0-2) /hpf Urine WBC >100 H (0-3) /hpf Ur Squamous Epith Cells Occasional (Few) /hpf Urine Bacteria Rare /hpf Urine Casts 3-5 <Rao Chatterjee MD - Last Filed: 03/29/25 19:50> Discharge Plan Discharge Clinical Impression: UTI (urinary tract infection) Qualifiers: Urinary tract infection type: acute cystitis Hematuria presence: with hematuria Qualified Code(s): N30.01 - Acute cystitis with hematuria <Brady Garvey MD - Last Filed: 03/29/25 04:53> Patient Disposition: Home <Brady Garvey MD - Last Filed: 03/29/25 04:53> Condition: Stable <Brady Garvey MD - Last Filed: 03/29/25 04:53> Instructions: Antibiotic Form, Urinary Tract Infection in Women (ED) <Brady Garvey MD - Last Filed: 03/29/25 04:53> Additional Instructions: You were seen in the emergency department. Your labs are consistent with a urinary tract infection. A CT scan was not concerning for kidney stone. Your red blood cell count is at a normal (14). Your liver and kidney function tests are not concerning for injury. I recommend a course of oral antibiotics and follow- up with your primary care doctor. If you develop severe abdominal pain, abdominal pain with fevers, persistent vomiting, or if you have other emergent concerns for life, limb, or eyesight, return to the emergency department. <Brady Garvey MD - Last Filed: 03/29/25 04:53> Patient Language: [place] <Brady Garvey MD - Last Filed: 03/29/25 04:53> Prescriptions: New cephalexin 500 mg capsule 500 mg PO Q12H 7 Days Qty: 14 0RF No Action metoprolol tartrate 75 mg tablet 100 mg PO Q12H Rx Instructions: Takes 100mg BID clobetasol 0.05 % cream 1 applic topical BID Qty: 30 0RF tramadol 50 mg tablet 50 mg PO Q8H PRN (Reason: pain) Qty: 60 0RF cyclobenzaprine 10 mg tablet 10 mg PO TID PRN (Reason: muscle spasm) Qty: 30 0RF cholecalciferol (vitamin D3) 50 mcg (2,000 unit) tablet 50 mcg PO DAILY losartan 25 mg tablet 25 mg PO DAILY Saccharomyces boulardii [Digest Probiotic (S.boulardii)] 250 mg capsule 5,000 mmu cells PO DAILY famotidine 40 mg tablet 40 mg PO DAILY Qty: 90 3RF phenazopyridine [Pyridium] 100 mg tablet 100 mg PO TID PRN (Reason: dysuria) Qty: 14 0RF Rx Instructions: take with or after meals nitrofurantoin monohyd/m-cryst [Macrobid] 100 mg capsule 100 mg PO Q12H 5 Days Qty: 10 0RF Rx Instructions: must administer with a meal/food Xarelto 20 mg tablet 20 mg PO QPM coenzyme Q10 [Co Q-10] 400 mg capsule 400 mg PO DAILY hydrocortisone [Anusol-HC] 2.5 % cream with perineal applicator 1 applic RECTAL DAILY PRN (Reason: hemorrhoids) Qty: 30 0RF atorvastatin 40 mg tablet 40 mg PO DAILY Qty: 90 1RF <Brady Garvey MD - Last Filed: 03/29/25 04:53> Follow-up/Referrals: Anup Ruelas MD [Primary Care Provider, Family Practice] - 2 Weeks <Brady Garvey MD - Last Filed: 03/29/25 04:53> Time of Disposition: 06:43 <Brady Garvey MD - Last Filed: 03/29/25 04:53> 06:43 <Rao Chatterjee MD - Last Filed: 03/29/25 19:50> Sign Out Sign Out Data: Patient Sign Out occurred on 03/29/25 at 06:11. Patient's care was discussed, and care was transferred from Brady Garvey MD to Rao Chatterjee MD. <Brady Garvey MD - Last Filed: 03/29/25 04:53>
[2025-03-29 07:01] VITALS: BP 140/67; PULSE 72; RESP 16; O2SAT 95
== END 2025-03-29 07:04 | disposition home or self-care (01) ==
PROVIDERS: Emergency Medicine; Emergency Provider Preventive Medicine Aerospace Medicine; PCP Family Medicine
DX: N30.01 Acute cystitis with hematuria (principal); I48.91 Unspecified atrial fibrillation; I48.92 Unspecified atrial flutter; I10 Essential (primary) hypertension; E78.2 Mixed hyperlipidemia; K21.9 Gastro-esophageal reflux disease without esophagitis; K58.9 Irritable bowel syndrome, unspecified; M51.34 Other intervertebral disc degeneration, thoracic region; Z90.710 Acquired absence of both cervix and uterus; Z90.49 Acquired absence of other specified parts of digestive tract; Z79.01 Long term (current) use of anticoagulants; Z79.899 Other long term (current) drug therapy; Z77.22 Contact with and (suspected) exposure to environmental tobacco smoke (acute) (chronic)
CPT/HCPCS: 36415; 74178; 80053; 81001; 85025; 87077; 87086; 87186; 96361; 96374; 96375; 99284; J2270; J2405; J7030; Q9967

== ENCOUNTER 2025-04-09 08:42 | Outpatient (CLI) | payer MEDICARE, SELFPAY ==
--- OUTSIDE RECORDS SUMMARY | 2016-06-03 01:00 | XMS_ITS | Encounter Summary ---
Author Organization [facility] Healthcare Address [address] [place] [address] Care Team Providers Care Levi Maker Name Role Phone Penny Bernal MD Primary Care Provider + Reason for Visit * Diagnostic Imaging (Routine) - Closed Specialty Diagnoses / Procedures Referred By Contac t Referred To Contact Procedures Breast Imaging Screening Outside Reference Adriana Joseph MD PhD [address] [id number] [place] [address] Phone: tel: fax: Referral ID Status Reason Start Date Expiration Date Visits Re quested Visits Authorized [id number] Closed 10/27/2021 11/26/2022 1 1 Encounter Details Date Type Department Care Team (Late st Contact Info) Description 06/03/2016 Hospital Encounter [facility]) [address] [place] [address] Social History Tobacco Use Types Packs/Day Years Used Date Smoking Tobacco: Never Smokeless Tobacco: Never Alcohol Use Standard Drinks/Week Comments Yes 0 (1 standard drink = 0.6 oz pur e alcohol) rarely Comments Unknown Sex and Gender Information Value Date Recorded Sex Assigned at Not on file Legal Sex Female 3:22 PM SOCIAL ORGANIZATION PROFESSOR Gender Identity Not on file Sexual Orientation Not on file documented as of this encounter Plan of Treatment Not on file documented as of this encounter Procedures Procedure Name Priority Date/Time Associated Diagnosis Comments BREAST IMAGING MG SCREENING OUTSIDE REFERENCE Routine 06/03/2016 12:00 AM SOCIAL ORGANIZATION PROFESSOR documented in this encounter Results * Breast Imaging Screening Outside Reference (06/03/2016 12:00 AM SOCIAL ORGANIZATION PROFESSOR) Impressions [facility]_M[facility]MO[facility] - 10/27/2021 10:35 AM CDT These images are for Reference purposes only and have not been reviewed by [facility] Radiology. There will be no report generated by a [facility] Radiologist. Narrative [facility]_MAMMO[facility] - 10/27/2021 10:35 AM CDT EXAMINATION: Images For Reference Purposes Only us Adriana Joseph MD PhD IMG MAMMO PROCEDURES Final Result [facility] documented in this encounter Visit Diagnoses Not on filedocumented in this encounter Care Teams Levi Maker Relationship Specialty Start Date End Date Penny Bernal MD [address] [place] [address] PCP - General 08/23/10 01/13/18 documented as of this encounter
--- OUTSIDE RECORDS SUMMARY | 2016-06-03 01:05 | XMS_ITS | Encounter Summary ---
Author Organization [facility] Healthcare Address [address] [place] [address] Care Team Providers Care Non Destructive Testing Engineer Name Role Phone Penny Bernal MD Primary Care Provider + Reason for Visit * Diagnostic Imaging (Routine) - Closed Specialty Diagnoses / Procedures Referred By Contac t Referred To Contact Procedures Breast Imaging Screening Outside Reference Adriana Joseph MD PhD [address] [facility] [address] [phone] [place] [address] Phone: tel: fax: Referral ID Status Reason Start Date Expiration Date Visits Re quested Visits Authorized [id number] Closed 10/27/2021 11/26/2022 1 1 Encounter Details Date Type Department Care Team (Late st Contact Info) Description 06/03/2016 12:05 AM SENIOR BUSINESS CONSULTANT Hospital Encounter [facility] ([facility]) [address] [place] [address] Social History Tobacco Use Types Packs/Day Years Used Date Smoking Tobacco: Never Smokeless Tobacco: Never Alcohol Use Standard Drinks/Week Comments Yes 0 (1 standard drink = 0.6 oz pur e alcohol) rarely Comments Unknown Sex and Gender Information Value Date Recorded Sex Assigned at Not on file Legal Sex Female 3:22 PM SENIOR BUSINESS CONSULTANT Gender Identity Not on file Sexual Orientation Not on file documented as of this encounter Plan of Treatment Not on file documented as of this encounter Procedures Procedure Name Priority Date/Time Associated Diagnosis Comments BREAST IMAGING MG SCREENING OUTSIDE REFERENCE Routine 06/03/2016 12:05 AM SENIOR BUSINESS CONSULTANT documented in this encounter Results * Breast Imaging Screening Outside Reference (06/03/2016 12:05 AM SENIOR BUSINESS CONSULTANT) Impressions [facility]MO[facility] - 10/27/2021 10:35 AM CDT These images are for Reference purposes only and have not been reviewed by [facility] Radiology. There will be no report generated by a [facility] Radiologist. Narrative RAD_MAMMO[facility] - 10/27/2021 10:35 AM CDT EXAMINATION: Images For Reference Purposes Only us Adriana Joseph MD PhD IMG MAMMO PROCEDURES Final Result [facility] documented in this encounter Visit Diagnoses Not on filedocumented in this encounter Care Teams Non Destructive Testing Engineer Relationship Specialty Start Date End Date Penny Bernal MD [address] [place] [address] PCP - General 08/23/10 01/13/18 documented as of this encounter
--- OUTSIDE RECORDS SUMMARY | 2017-06-10 01:00 | XMS_ITS | Encounter Summary ---
Author Organization [facility] Healthcare Address [address] [place] [address] Care Team Providers Care Client Care Representative Name Role Phone Penny Bernal MD Primary Care Provider + Reason for Visit * Diagnostic Imaging (Routine) - Closed Specialty Diagnoses / Procedures Referred By Contac t Referred To Contact Procedures Breast Imaging Screening Outside Reference Adriana Joseph MD PhD [address] [facility] [address] [phone] [place] [address] Phone: tel: fax: Referral ID Status Reason Start Date Expiration Date Visits Re quested Visits Authorized [id number] Closed 10/27/2021 11/26/2022 1 1 Encounter Details Date Type Department Care Team (Late st Contact Info) Description 06/10/[address] [facility] ([facility]) [address] [place] [address] Social History Tobacco Use Types Packs/Day Years Used Date Smoking Tobacco: Never Smokeless Tobacco: Never Alcohol Use Standard Drinks/Week Comments Yes 0 (1 standard drink = 0.6 oz pur e alcohol) rarely Comments Unknown Sex and Gender Information Value Date Recorded Sex Assigned at Not on file Legal Sex Female 3:22 PM LIQUOR STORE MANAGER Gender Identity Not on file Sexual Orientation Not on file documented as of this encounter Plan of Treatment Not on file documented as of this encounter Procedures Procedure Name Priority Date/Time Associated Diagnosis Comments BREAST IMAGING MG SCREENING OUTSIDE REFERENCE Routine 06/10/2017 12:00 AM LIQUOR STORE MANAGER documented in this encounter Results * Breast Imaging Screening Outside Reference (06/10/2017 12:00 AM LIQUOR STORE MANAGER) Impressions [facility]MO[facility] - 10/27/2021 10:35 AM CDT These images are for Reference purposes only and have not been reviewed by [facility]. There will be no report generated by a [facility] Radiologist. Narrative RAD_MAMMO[facility] - 10/27/2021 10:35 AM CDT EXAMINATION: Images For Reference Purposes Only us Adriana Joseph MD PhD IMG MAMMO PROCEDURES Final Result [facility] documented in this encounter Visit Diagnoses Not on filedocumented in this encounter Care Teams Client Care Representative Relationship Specialty Start Date End Date Penny Bernal MD [address] [place] [address] PCP - General 08/23/10 01/13/18 documented as of this encounter
--- OUTSIDE RECORDS SUMMARY | 2018-06-15 01:00 | XMS_ITS | Encounter Summary ---
Author Organization [facility] Healthcare Address [address] [place] [address] Care Team Providers Care Inspector Canvas Products Name Role Phone Tom Case MD Primary Care Provider [phone] Reason for Visit * Diagnostic Imaging (Routine) - Closed Specialty Diagnoses / Procedures Referred By Contac t Referred To Contact Procedures Breast Imaging Screening Outside Reference Adriana Joseph MD PhD [address] [phone] [place] [address] Phone: tel: fax: Referral ID Status Reason Start Date Expiration Date Visits Re quested Visits Authorized [id number] Closed 10/27/2021 11/26/2022 1 1 Encounter Details Date Type Department Care Team (Late st Contact Info) Description 06/15/2018 Hospital Encounter [facility]) [address] [place] [address] Social History Tobacco Use Types Packs/Day Years Used Date Smoking Tobacco: Never Smokeless Tobacco: Never Alcohol Use Standard Drinks/Week Comments Yes 0 (1 standard drink = 0.6 oz pur e alcohol) rarely Comments Unknown Sex and Gender Information Value Date Recorded Sex Assigned at Not on file Legal Sex Female 3:22 PM GATE AGENT Gender Identity Not on file Sexual Orientation Not on file documented as of this encounter Plan of Treatment Not on file documented as of this encounter Procedures Procedure Name Priority Date/Time Associated Diagnosis Comments BREAST IMAGING MG SCREENING OUTSIDE REFERENCE Routine 06/15/2018 12:00 AM GATE AGENT documented in this encounter Results * Breast Imaging Screening Outside Reference (06/15/2018 12:00 AM GATE AGENT) Impressions RAD[facility]MO[facility] - 10/27/2021 10:34 AM CDT These images are for Reference purposes only and have not been reviewed by [facility] Radiology. There will be no report generated by a [facility] Radiologist. Narrative RAD_MAMMO[facility] - 10/27/2021 10:34 AM CDT EXAMINATION: Images For Reference Purposes Only us Adriana Joseph MD PhD IMG MAMMO PROCEDURES Final Result [facility] documented in this encounter Visit Diagnoses Not on filedocumented in this encounter Care Teams Inspector Canvas Products Relationship Specialty Start Date End Date Tom Case MD [address] [place] [address] PCP - General Internal Medicine 01/14/18 01/26/22 documented as of this encounter
--- OUTSIDE RECORDS SUMMARY | 2019-07-20 01:00 | XMS_ITS | Encounter Summary ---
Author Organization [facility] Healthcare Address [address] [place] [address] Care Team Providers Care Lace Cutter Name Role Phone Tom Case MD Primary Care Provider [phone] Reason for Visit * Diagnostic Imaging (Routine) - Closed Specialty Diagnoses / Procedures Referred By Contac t Referred To Contact Procedures Breast Imaging Screening Outside Reference Adriana Joseph MD PhD [address] [phone] [place] [address] Phone: tel: fax: Referral ID Status Reason Start Date Expiration Date Visits Re quested Visits Authorized [id number] Closed 10/27/2021 11/26/2022 1 1 Encounter Details Date Type Department Care Team (Late st Contact Info) Description 07/20/2019 Hospital Encounter [facility]) [address] [place] [phone] Social History Tobacco Use Types Packs/Day Years Used Date Smoking Tobacco: Never Smokeless Tobacco: Never Alcohol Use Standard Drinks/Week Comments Yes 0 (1 standard drink = 0.6 oz pur e alcohol) rarely Comments Unknown Sex and Gender Information Value Date Recorded Sex Assigned at Not on file Legal Sex Female 3:22 PM BRIDGE GAME DIRECTOR Gender Identity Not on file Sexual Orientation Not on file documented as of this encounter Plan of Treatment Not on file documented as of this encounter Procedures Procedure Name Priority Date/Time Associated Diagnosis Comments BREAST IMAGING MG SCREENING OUTSIDE REFERENCE Routine 07/20/2019 12:00 AM BRIDGE GAME DIRECTOR documented in this encounter Results * Breast Imaging Screening Outside Reference (07/20/2019 12:00 AM BRIDGE GAME DIRECTOR) Impressions [facility]MO[facility] - 10/27/2021 10:34 AM CDT These images are for Reference purposes only and have not been reviewed by [facility] Radiology. There will be no report generated by a [facility] Radiologist. Narrative RAD_MAMMO_[facility] - 10/27/2021 10:34 AM CDT EXAMINATION: Images For Reference Purposes Only us Adriana Joseph MD PhD IMG MAMMO PROCEDURES Final Result [facility] documented in this encounter Visit Diagnoses Not on filedocumented in this encounter Care Teams Lace Cutter Relationship Specialty Start Date End Date Tom Case MD [address] [place] [address] PCP - General Internal Medicine 01/14/18 01/26/22 documented as of this encounter
--- OUTSIDE RECORDS SUMMARY | 2020-07-25 01:00 | XMS_ITS | Encounter Summary ---
Author Organization [facility] Healthcare Address [address] [place] [address] Care Team Providers Care Pressure Washer Name Role Phone Tom Case MD Primary Care Provider [phone] Reason for Visit * Diagnostic Imaging (Routine) - Closed Specialty Diagnoses / Procedures Referred By Contac t Referred To Contact Procedures Breast Imaging Screening Outside Reference Adriana Joseph MD PhD [address] [id number] [place] [address] Phone: tel: fax: Referral ID Status Reason Start Date Expiration Date Visits Re quested Visits Authorized [id number] Closed 10/27/2021 11/26/2022 1 1 Encounter Details Date Type Department Care Team (Late st Contact Info) Description 07/25/2020 Hospital Encounter [facility]) [address] [place] [address] Social History Tobacco Use Types Packs/Day Years Used Date Smoking Tobacco: Never Smokeless Tobacco: Never Alcohol Use Standard Drinks/Week Comments Yes 0 (1 standard drink = 0.6 oz pur e alcohol) rarely Comments Unknown Sex and Gender Information Value Date Recorded Sex Assigned at Not on file Legal Sex Female 3:22 PM ARTS AND CRAFTS TEACHER Gender Identity Not on file Sexual Orientation Not on file documented as of this encounter Plan of Treatment Not on file documented as of this encounter Procedures Procedure Name Priority Date/Time Associated Diagnosis Comments BREAST IMAGING MG SCREENING OUTSIDE REFERENCE Routine 07/25/2020 12:00 AM ARTS AND CRAFTS TEACHER documented in this encounter Results * Breast Imaging Screening Outside Reference (07/25/2020 12:00 AM ARTS AND CRAFTS TEACHER) Impressions RAD_MAMMO[facility] - 10/27/2021 10:34 AM CDT These images are for Reference purposes only and have not been reviewed by [facility] Radiology. There will be no report generated by a [facility] Radiologist. Narrative RAD_MAMMO_[facility] - 10/27/2021 10:34 AM CDT EXAMINATION: Images For Reference Purposes Only us Adriana Joseph MD PhD IMG MAMMO PROCEDURES Final Result [facility] documented in this encounter Visit Diagnoses Not on filedocumented in this encounter Care Teams Pressure Washer Relationship Specialty Start Date End Date oTm Case MD [address] [place] [address] PCP - General Internal Medicine 01/14/18 01/26/22 documented as of this encounter
--- OUTSIDE RECORDS SUMMARY | 2020-08-20 01:00 | XMS_ITS | Encounter Summary ---
Author Organization [facility] Healthcare Address [address] [place] [address] Care Team Providers Care Accounts Receivable Bookkeeper Name Role Phone Tom Case MD Primary Care Provider [phone] Reason for Visit * Diagnostic Imaging (Routine) - Closed Specialty Diagnoses / Procedures Referred By Contac t Referred To Contact Procedures Breast Imaging US Outside Reference Adriana Joseph MD PhD [address] [phone] [place] [address] Phone: tel: fax: Referral ID Status Reason Start Date Expiration Date Visits Re quested Visits Authorized [id number] Closed 10/27/2021 11/26/2022 1 1 Encounter Details Date Type Department Care Team (Late st Contact Info) Description 08/20/2020 Hospital Encounter [facility]) [address] [place] [address] Social History Tobacco Use Types Packs/Day Years Used Date Smoking Tobacco: Never Smokeless Tobacco: Never Alcohol Use Standard Drinks/Week Comments Yes 0 (1 standard drink = 0.6 oz pur e alcohol) rarely Comments Unknown Sex and Gender Information Value Date Recorded Sex Assigned at Not on file Legal Sex Female 3:22 PM STAINED GLASS JOINER Gender Identity Not on file Sexual Orientation Not on file documented as of this encounter Plan of Treatment Not on file documented as of this encounter Procedures Procedure Name Priority Date/Time Associated Diagnosis Comments BREAST IMAGING US OUTSIDE REFERENCE Routine 08/20/2020 12:00 AM STAINED GLASS JOINER documented in this encounter Results * Breast Imaging US Outside Reference (08/20/2020 12:00 AM STAINED GLASS JOINER) Impressions [facility]MO[facility] - 10/27/2021 10:33 AM CDT These images are for Reference purposes only and have not been reviewed by [facility]. There will be no report generated by a [facility] Radiologist. Narrative RAD_MAMMO[facility] - 10/27/2021 10:33 AM CDT EXAMINATION: Images For Reference Purposes Only us Adriana oJseph MD PhD IMG MAMMO PROCEDURES Final Result [facility] documented in this encounter Visit Diagnoses Not on filedocumented in this encounter Care Teams Accounts Receivable Bookkeeper Relationship Specialty Start Date End Date Tom Case MD [address] [place] [address] PCP - General Internal Medicine 01/14/18 01/26/22 documented as of this encounter
--- OUTSIDE RECORDS SUMMARY | 2020-08-20 01:05 | XMS_ITS | Encounter Summary ---
Author Organization [facility] Healthcare Address [address] [place] [address] Care Team Providers Care Data Network Architect Name Role Phone Tom Case MD Primary Care Provider [phone] Reason for Visit * Diagnostic Imaging (Routine) - Closed Specialty Diagnoses / Procedures Referred By Contac t Referred To Contact Procedures Breast Imaging Diagnostic Outside Reference Adriana Joseph MD PhD [address] [facility] [address] [phone] [place] [address] Phone: tel: fax: Referral ID Status Reason Start Date Expiration Date Visits Re quested Visits Authorized [id number] Closed 10/27/2021 11/26/2022 1 1 Encounter Details Date Type Department Care Team (Late st Contact Info) Description 08/20/2020 12:05 AM EPITAXIAL REACTOR TECHNICIAN Hospital Encounter [facility] [address] [place] [phone] Social History Tobacco Use Types Packs/Day Years Used Date Smoking Tobacco: Never Smokeless Tobacco: Never Alcohol Use Standard Drinks/Week Comments Yes 0 (1 standard drink = 0.6 oz pur e alcohol) rarely Comments Unknown Sex and Gender Information Value Date Recorded Sex Assigned at Not on file Legal Sex Female 3:22 PM EPITAXIAL REACTOR TECHNICIAN Gender Identity Not on file Sexual Orientation Not on file documented as of this encounter Plan of Treatment Not on file documented as of this encounter Procedures Procedure Name Priority Date/Time Associated Diagnosis Comments BREAST IMAGING MG DIAGNOSTIC OUTSIDE REFERENCE Routine 08/20/2020 12:05 AM EPITAXIAL REACTOR TECHNICIAN documented in this encounter Results * Breast Imaging Diagnostic Outside Reference (08/20/2020 12:05 AM EPITAXIAL REACTOR TECHNICIAN) Impressions [facility] - 10/27/2021 10:35 AM CDT These images are for Reference purposes only and have not been reviewed by [facility] Radiology. There will be no report generated by a [facility] Radiologist. Narrative RAD_MAMMO[facility] - 10/27/2021 10:35 AM CDT EXAMINATION: Images For Reference Purposes Only us Adriana Joseph MD PhD IMG MAMMO PROCEDURES Final Result [facility] documented in this encounter Visit Diagnoses Not on filedocumented in this encounter Care Teams Data Network Architect Relationship Specialty Start Date End Date Tom Case MD [address] [place], [place] [id number] PCP - General Internal Medicine 01/14/18 01/26/22 documented as of this encounter
--- OUTSIDE RECORDS SUMMARY | 2025-04-09 09:09 | XMS_ITS | Encounter Summary ---
Author Organization [facility] Address [address] [place] [address] Care Team Providers Care Financial Sales Manager Name Role Phone Penny Bernal MD Primary Care Provider + Tom Case MD Primary Care Provider [phone] Navin Barger MD Primary Care Provider [phone] Anup Ruelas MD Primary Care Provider [phone] Encounter Details Date Type Department Care Team (Late st Contact Info) Description 03/30/2012 Orders Only [facility] Information Management [address] [place] [address] Scanning, Provider Social History Tobacco Use Types Packs/Day Years Used Date Smoking Tobacco: Never Assessed Comments Unknown Sex and Gender Information Value Date Recorded Sex Assigned at Not on file 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 Gender Identity Not on file Sexual [...] on filedocumented in this encounter Care Teams Financial Sales Manager Relationship Specialty Start Date End Date Penny Bernal MD [address] [place] [address] PCP - General 08/23/10 01/13/18 Tom Case MD [address] [facility] [address] [facility] [address] [place] [address] PCP - General Internal Medicine 01/14/18 01/26/22 Navin Barger MD [address] [id number] PCP - General Family Medicine 01/27/22 09/07/22 Anup Ruelas MD [facility] [address] [address] PCP - General Family Medicine 09/08/22 documented as of this encounter
--- OUTSIDE RECORDS SUMMARY | 2025-04-09 09:09 | XMS_ITS | Clinical Summary ---
Author Organization [facility] [place] [address] Address [address] [place] [address] Care Team Providers Care Bar Examiner Name Role Phone Anup Ruelas MD Primary Care Provider [phone] Allergies Active Allergy Reactions Criticality Noted Date Comments Cephalexin Nausea only Low Codeine Nausea only Low Dexlansoprazole Unknown 07/21/2021 Levofloxacin Nausea only Low Metronidazole Nausea only Low Esomeprazole Hives Medium 01/31/2019 Niacin Cough Low 07/09/2020 Pseudoephedrine Other (See comments) Low 07/09/2020 Medications bacillus-protease -amylas-lipas (DIGESTIVE ADVANTAGE INTENS BOW) 1 billion cell- 30,000 unit capsule take one daily 0 0 6 Active cholecalciferol (VITAMIN D3) 1,000 unit capsule take 1 by Oral route once 0 0 6 Active coenzyme Q10 (CO Q-10) 400 mg capsule take one daily 0 0 6 Active vitamin A-vitamin C-vit E-min tablet Take by mouth daily E[facility] PROMISE ([facility] emere) Active dicyclomine (BENTYL) 20 mg tablet Take 1 tablet (20 mg total) by mouth 2 (two) times a day 0 Active losartan (COZAAR) 25 mg tabletIndications :Essential hypertension Take 1 tablet (25 mg total) by mouth daily 90 tablet 3 4 Active atorvastatin (LIPITOR) 40 mg tablet Take 1 tablet (40 mg total) by mouth daily 4 Active amitriptyline (ELAVIL) 25 mg tablet Take 1 tablet (25 mg total) by mouth nightly at bedtime 4 Active famotidine (PEPCID) 40 mg tablet Take 1 tablet (40 mg total) by mouth daily 5 Active traMADoL (ULTRAM) 50 mg tablet every 6 (six) hours as needed 5 Active cyclobenzaprine (FLEXERIL) 10 mg tablet Take 1 tablet (10 mg total) by mouth as needed 5 Active metoprolol (LOPRESSOR) 100 mg tabletIndications :Paroxysmal atrial flutter (HCC) TAKE 1 TABLET BY MOUTH TWICE A DAY 180 tablet 2 5 Active rivaroxaban (Xarelto) 20 mg tablet Take 1 tablet (20 mg total) by mouth daily 90 tablet 1 5 Active Xarelto 20 mg tablet TAKE 1 TABLET BY MOUTH EVERY DAY 90 tablet 1 5 03/26/20 25 Discontinu ed(Reorder ) Active Problems Problem Noted Date Diagnosed Date [...] Encounters Date Type Department Care Team Description 03/26/2025 Telephone [facility] Cardiology [address] [place] [address] Brendon Williamson MD Med Refill from Last 3 Months Immunizations Immunization Administration [...] on file 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
[2025-04-09 09:51] LABS: Add Urine Microscopic? YES; Appearance Urine Cloudy (Clear); Glucose Urine UA Negative (Negative); Leukocyte Esterase Ur 2+ LEU/UL (Negative); Need Manual Microscopic Reviewed; Nitrate Urine Negative (Negative); Specific Grav Ur 1.019 (1.001-1.035)
== END 2025-04-09 08:43 | disposition home or self-care (01) ==
PROVIDERS: PCP Family Medicine; Visit Provider Nurse Practitioner Family
DX: R31.0 Gross hematuria (principal)
CPT/HCPCS: 81001; 87086